=== PATIENT | female | born 1940 | race Caucasian/White ===

== ENCOUNTER 2018-08-30 09:20 | Inpatient (IN) | payer OTHER ==
[2018-08-27 13:46] LABS: Absolute Lymphocytes (CBC) 2.1 K/uL (0.7-4.9); Absolute Monocytes 0.4 K/uL (0.1-1.3); Absolute Neutrophil 4.1 K/uL (1.8-8.0); Basophils % 0.6 % (0-1.3); Eosinophils % 1.4 % (0-4.4); Hematocrit 42.8 % (36.0-45.0); Lymphocytes % 31.4 % (15.3-44.8); MPV 8.4 fL (7.6-11.3); Monocytes % 6.2 % (3.3-12.3); RBC Red Blood Cell Count 4.58 M/uL (3.86-4.86)
[2018-08-27 13:50] LABS: Urine Appearance CLOUDY; Urine Bilirubin NEGATIVE (NEG); Urine Blood NEGATIVE (NEG); Urine Color YELLOW; Urine Glucose NEGATIVE (NEG); Urine Protein NEGATIVE (NEG); Urine Specific Gravity 1.015 (1.005-1.030)
[2018-08-27 13:53] LABS: Urine Microscopic Reflex ORDER UMIC
[2018-08-27 13:59] LABS: Protime INR 0.92
[2018-08-27 14:01] LABS: Potassium 3.5 mmol/L (3.5-5.1)
[2018-08-27 14:07] LABS: Urine Bacteria <20 /HPF (<20); Urine RBC <5 /HPF (NONE SEEN)
[2018-08-27 14:08] LABS: Urine Amorphous Sediment 1+ /HPF (NONE SEEN); Urine Culture Reflex Order NOT NEEDED; Urine Mucus 2+ /HPF (NONE SEEN)
[2018-08-30] MEDS ORDERED: Ringers Lactate 1,000 ML IV ONE ×2 (09:44→14:43)
[2018-08-30] MEDS: CEFAZOLIN/SWI 2gm 2 GM/20 ML SYR ONE ×2 (10:14→11:51)
[2018-08-30] MEDS ORDERED: NA CHLORIDE 0.9% 100 ML IV ONE (11:19)
[2018-08-30] MEDS ORDERED: CEFAZOLIN/SWI 1gm 1 GM/10 ML SYR ONE (11:20)
[2018-08-30] MEDS ORDERED: VASOPRESSIN 20 UNIT/ML VIAL ONE (11:20)
[2018-08-30] MEDS ORDERED: FENTANYL CITR 100 MCG/2 ML ONE ×2 (11:47→14:47)
[2018-08-30] MEDS ORDERED: MIDAZOLAM HCL 2 MG/2 ML INJ ONE (11:48)
[2018-08-30] MEDS ORDERED: PROPOFOL 200 MG/20 ML VIAL IV ONE (11:48)
[2018-08-30] MEDS ORDERED: LIDOCAINE 2% MPF 5 ML VIAL ONE (11:48)
[2018-08-30] MEDS ORDERED: ONDANSETRON 4 MG/2 ML VIAL ONE (11:49)
[2018-08-30] MEDS ORDERED: ROCURONIUM 50 MG/5 ML VIAL IV ONE ×2 (11:50→13:04)
[2018-08-30] MEDS ORDERED: EPHEDRINE SULF 50 MG/10 ML SYR ONE ×2 (12:18→12:45)
[2018-08-30] MEDS ORDERED: DEXAMETHASONE 10 MG/ML VIAL ONE (12:48)
[2018-08-30] MEDS ORDERED: HOME MED 1 EA UNK (Meclizine Hcl [Meclizine Hcl] 25 MG) PO PRN (15:17)
[2018-08-30] MEDS ORDERED: HYDROMORPHONE HCL 1 MG/ML INJ IV PRN (15:19)
[2018-08-30] MEDS ORDERED: ACETAMINOPHEN 500 MG TAB PO PRN (15:19)
[2018-08-30] MEDS ORDERED: ONDANSETRON 4 MG/2 ML VIAL IV PRN (15:19)
--- NOTE | 2018-08-30 15:30 | P.BOP ---
Preoperative diagnosis: cystorectocele stage2, vault prolapse, MARIANNE Postoperative diagnosis: same, perineocele Primary procedure: colpocleisis, MUS TVT-O cystoscopy Secondary procedure: perineorrhaphy Mold Dumper: Larissa Garcias Estimated blood loss: 50 Specimen: none Findings: 0/0/+2/5/wide/6/-1/-1/n/a Anesthesia: General Complications: None Drain(s): Urinary catheter Implants: TVT-O Transferred to: Recovery Room Condition: Good
[2018-08-30] MEDS ORDERED: Ringers Lactate 1,000 ML IV SCH (16:00)
[2018-08-30 16:16] VITALS: O2SAT 96
[2018-08-30] MEDS ORDERED: MECLIZINE HCL 12.5 MG TAB PO PRN (16:35)
[2018-08-30 16:46] VITALS: BMI 17.6
[2018-08-30] MEDS: METOPROLOL TAR 25 MG TAB PO SCH (21:09)
[2018-08-31] MEDS ORDERED: AMLODIPINE 5 MG TAB PO SCH (06:00)
[2018-08-31 07:31] LABS: Absolute Lymphocytes (CBC) 0.8 K/uL (0.7-4.9); Absolute Monocytes 0.8 K/uL (0.1-1.3); Absolute Neutrophil 11.5 K/uL (1.8-8.0); Basophils % 0.1 % (0-1.3); Hematocrit 35.3 % (36.0-45.0); Lymphocytes % 6.3 % (15.3-44.8); MPV 8.2 fL (7.6-11.3); Monocytes % 5.7 % (3.3-12.3)
[2018-08-31] MEDS: METOPROLOL TAR 25 MG TAB PO SCH (08:20)
[2018-08-31] MEDS ORDERED: HOME MED 1 EA UNK (Budesonide/Formoterol Fumarate [Symbicort 160-4.5 Mcg Inhaler] 2 PUFF) IH SCH (09:00)
[2018-08-31 09:25] VITALS: BP 134/81; TEMP 98.3
[2018-08-31 09:55] LABS: Blood Morphology Comment NOT SEEN (NOT SEEN); Platelet Estimate ADEQ; Urine White Blood Cell Casts OK
--- NOTE | 2018-09-02 11:23 | OP ---
Date of Procedure: 08/30/2018 Surgeon: Maria A Castrejon MD Blocker Metal Base: Larissa Garcias. Preoperative Diagnoses: Vault prolapse; anterior wall prolapse, stage II; posterior wall prolapse, s tage II; occult stress urinary incontinence. Postoperative Diagnosis: Stage II vault prolapse, almost stage III; anterior and posterior wall prol apse that resolved, and stress urinary incontinence with a wide genital hiatus and a large perineal b josiane defect. Procedures Performed: 1.Colpocleisis. 2.Distal rectocele repair and perineorrhaphy. 3.Mid urethral sling (TVT-O). 4.Cystoscopy. Anesthesia: General. Estimated Blood Loss: Less than 50 mL. Specimens: None. Complications: None. Drains: None. Condition: Stable. Findings: POP-Q is as follows; anterior wall 0, +1, +2, 5 cm, moderate, 6 cm, -1, -1, and NA. The s ignificant vault prolapse on this patient, which seemed like the biggest defect besides the perineal body defect, so the above procedure was planned and performed. Brief History And Physical: The patient is a 78-year-old female who has had a total vaginal hysterec radha, bilateral salpingo-oophorectomy many years ago, and has just been doing well. She presented to me with prolapse, and she was fitted with a pessary, and she continued to use her pessary for a few years. However, at a certain point, she started to have problems with her pessary, and says the pess nimisha maintenance was becoming a huge hassle for this patient, and she did not want to continue to take care of this pessary, so she wanted a surgical repair. Initially, she was consented for transvagina l apical suspension with anterior wall repair using an Uphold synthetic graft. However, less than 36 hours prior to her surgery, there was a notification from FDA notifying that the transvaginal mesh p roduct including the xenograft and are completely nonusable, so with the patien t on the morning of the surgery, this mornign. Discussed this extensively. She already had been thr ough all the FDA warnings and information that is most current at the time of her appointment on Mond ay to see me and re-evaluate prior to making a decision, and then making the decision for surgery. T he patient was well informed about the synthetic graft placed vaginally. Discussed surgical options of abdominally placed sacral colpopexy mesh versus waiting and deciding later. The patient wanted to proceed with grindstone tissue repair or vaginal closure procedure, whichever was most convenient. She has not been sexually active in many years. After her second passed, she does not have any i ntention of being sexually active, and this was very clear by the patient's discussion. She clearly communicated with her daughter and [id number], both present in the room, and were part of the co nversation. I discussed the option of doing a grindstone tissue repair, re-suspending the apex, and then reconstructi ng the anterior and posterior wall. However, since the recurrence rate of this is much higher than a colpocleisis, I discussed the options of colpocleisis, which would be the only other option the judi ent would have for effective treatment transvaginally. The patient readily warmed-up to the idea and consented to this, and so she was consented for a colpocleisis possibly if at all perform ed. Description Of Procedure: After informed consent was verified, Ancef was given. The patient was sravani en back to OR. SCDs were started. General anesthesia was given. She was placed in dorsal lithotomy position using Javier stirrups. Pelvic exam was performed after shaving the outside. She had multip le blackheads and cleaned out as well. The lower abdomen, vulva, vagina, and perineum wer e prepped and draped in a sterile fashion. [place] was placed to drain the bladder. The bladder neck was identified. The vaginal vault was identified and 2 Allis clamps were placed at each end of the v aginal cuff. There was excellent descent of the vaginal apex and of the anterior and post erior wall on placing tension with 2 Allis clamps placed at the apex. It was very clear that the def ect was apical. Anterior wall was only 5 cm and appeared to be completely within normal limits. So at this point, a decision was made to perform a colpocleisis as the patient was consented for this at the bedside. She fully understood that this was permanent and irreversible, and wanted to proceed with this proced ure. Trapezoid skin markings were made on the anterior and posterior wall, leaving only about 2 cm of the distal vaginal wall and about 2 cm of the anterior vaginal wall from the external meatus to the level of the bladder neck. Dilute vasopressin was injected 20 cc in the back and 30 cc in the front. Fir st, the trapezoid incision was made with a 15 blade, and the skin was carefully removed without remov ing any significant amount of underlying tissues including the fascia and endopelvic connective tissu e. Once this was stripped, the anterior wall was also stripped with a 15 blade. Then, sutures were placed with 2-0 Vicryl transversely at the level of the apex getting the apex and the poe together in a continuous running locked fashion all the way in the transverse dimension and then on the right lateral aspect. Then, on the left lateral aspect another suture was taken, and continuous running im bricating suture was placed to finish this side. The anterior-posterior poe were brought together with the help of 3 rows of 2-0 Vicryl sutures from the anterior to posterior, and after all these wer e used for obliteration of the vaginal canal, then the lateral edges of the anterior and posterior ca nals were brought together and were sutured together in the midline in a vertical plane with the help of 2-0 Vicryl in a continuous running locked fashion. Once this was done, there was no excessive te nsion. The distal vaginal canal appeared to be puckered in appropriate axis. Then, perineorrhaphy w as done. The perineum was marked out. The defect in the perineal body and the attachments of the perineal bod y were identified. Dilute vasopressin was injected into the midline, into the perineum as well as in to the posterior distal vaginal wall. A triangular skin incision was made with 15 blade and removed excess skin of the posterior compartment, and once this was opened up, all the underlying tissues wer e dissected down, and the perineal body was dissected down as well. The edges were trimmed. The sup erficial and deep transverse perineum were brought together, and the lateral insertions of the levato rs into the perineal body were all brought together. I did put 2 stitches on the distal puborectalis muscle, pubococcygeal, and the levator muscle with 2-0 Vicryl right inside of the vestibule to hold the perineal body repair together and for a long time. Once these were done, the posterior midline w as closed with the help of a continuous running 2-0 Vicryl in a locked fashion. After the entire per ineal body was reconstructed, 3-0 Vicryl was used to close the perineum. Mid urethral area was identified. The patient was placed in a high dorsal lithotomy. All the markin gs for the exit points of the TVT-O were made according to the package instruction, 2 cm lateral to t he groin fold and 1 cm above the level of the horizontal line dropped to the level of the external me atus. This was below the adductor tendon on both sides. Once this was done, a mid urethral incision was made with a 15 blade. Dissection was carried along the 45-degree angle to the vertical planes. Hugging the inferior pubic ramus, natural gas inspector obturator membrane and opening up the tract. Similarly , dissection was performed on the left side as well. The TVT-O was opened up. Wing guide was placed and spike was passed in the usual fashion exited at the point that was marked. Similar pass was sravani en on the left side as well. Mesh was tensioned with the help of Metzenbaum scissors. The mid ureth ral area was tensioned appropriately. The mesh sheath were all cut, and mesh was left in place. Glue was placed on the incisions in the groins. The vagina was completely hemostatic. [place] was removed. Cystoscopy was performed. Both ureteric orifices were well visualized. Strong jets o f urine from both the bladder was completely unremarkable. The scope was removed. Bladder was drain ed. [place] was replaced. The patient was recovered from anesthesia. Instrument, needle, and sponge counts were done x3, and were correct at the end of the case. The patient was taken to the PACU in a stable condition. She will stay overnight and discharged tomorrow after checking the voiding trials . Follow up with me in 1 week. CHRIS/JESSICA Voice ID: [id number] Report ID: [id number]
== END 2018-08-31 09:00 | disposition home or self-care (01) | DRG 748 ==
LOC: OR 09:20 → 2ND-WC 16:27 → OR 20:23 → 2ND-WC 20:25
PROVIDERS: ADMIT Obstetrics & Gynecology; ATTEND Obstetrics & Gynecology
PROC: 0ULG7ZZ Occlusion of Vagina, Via Natural or Artificial Opening (ICD-10-PCS; 2018-08-30)
PROC: 0TSD0ZZ Reposition Urethra, Open Approach (ICD-10-PCS; 2018-08-30)
PROC: 0KQM0ZZ Repair Perineum Muscle, Open Approach (ICD-10-PCS; 2018-08-30)
PROC: 0TJB8ZZ Inspection of Bladder, Via Natural or Artificial Opening Endoscopic (ICD-10-PCS; 2018-08-30)
PROC: 0JQC0ZZ Repair Pelvic Region Subcutaneous Tissue and Fascia, Open Approach (ICD-10-PCS; principal; 2018-08-30 10:30)
DX: N99.3 Prolapse of vaginal vault after hysterectomy (principal); N81.6 Rectocele; N39.3 Stress incontinence (female) (male); N95.2 Postmenopausal atrophic vaginitis; J44.9 Chronic obstructive pulmonary disease, unspecified; M81.0 Age-related osteoporosis without current pathological fracture; F17.210 Nicotine dependence, cigarettes, uncomplicated; E78.5 Hyperlipidemia, unspecified; Z90.710 Acquired absence of both cervix and uterus; Z90.79 Acquired absence of other genital organ(s); Z90.722 Acquired absence of ovaries, bilateral
CPT/HCPCS: 36415; 80048; 81003; 81015; 85025; 85610; 85730; 86850; 86900; 86901; J0690; J1100; J2250; J2405; J2704; J3010

== ENCOUNTER 2019-06-11 02:25 | Inpatient (IN) | payer OTHER ==
[2019-06-11] MEDS ORDERED: ALBUTEROL 2.5 MG/3 ML NEB SOL ONE ×2 (02:47→09:45)
[2019-06-11 03:48] LABS: Absolute Lymphocytes (CBC) 1.4 K/uL (0.7-4.9); Basophils % 0.1 % (0-1.3); Hematocrit 35.2 % (36.0-45.0); Lymphocytes % 10.6 % (15.3-44.8); MPV 9.1 fL (7.6-11.3); RBC Red Blood Cell Count 3.81 M/uL (3.86-4.86)
[2019-06-11 03:52] LABS: Protime INR 1.04
[2019-06-11 04:02] LABS: ALT/SGPT 23 U/L (12-78); AST/SGOT 13 U/L (15-37); Albumin 3.4 g/dL (3.4-5.0); Alkaline Phosphatase 46 U/L (45-117); BUN Blood Urea Nitrogen 7 mg/dL (7-18); Bicarbonate 30 mmol/L (21-32); Bilirubin Direct 0.2 mg/dL (0-0.2); Bilirubin Total 0.9 mg/dL (0.2-1.0); CKMB Creatine Kinase MB < 1.0 ng/mL (0.3-3.6); Creatine Phosphokinase 52 U/L (26-192); Glucose Level 133 mg/dL (74-106); Lipase 68 U/L (73-393); Magnesium 1.9 mg/dL (1.8-2.4); NT PRO-BNP 533 pg/mL (<450); Potassium 3.7 mmol/L (3.5-5.1); Protein, Total 6.9 g/dL (6.4-8.2); Sodium Level 133 mmol/L (136-145); Troponin (Emerg Dept Use Only) < 0.02 ng/mL (0.0-0.045)
--- NOTE | 2019-06-11 04:11 | ER ---
Nurse's Notes [facility] Name: Keshia Madsen Age: 79 yrs Sex: Female : 1940 Arrival Date: 06/11/2019 Time: 02:33 Bed 8 Private MD: Diagnosis: Chronic obstructive pulmonary disease with (acute) exacerbation;Chronic obstructive pulmonary disease with acute lower respiratory infection Presentation: 06/11 02:26 Presenting complaint: EMS states: We were called out for shortness of breath. Pt was in jb4 tripod position upon arrival. sats were 91% on room air. We gave albuterol and atrovent neb, 125,g of Solu-medrol, and 250 of NS. She began having a productive cough once the nebulizer was started. 02:26 Transition of care: patient was not received from another setting of care. Onset of jb4 symptoms was June 11, 2019. Risk Assessment: Do you want to hurt yourself or someone else? Patient reports no desire to harm self or others. Initial Sepsis Screen: Does the patient meet any 2 criteria? RR > 20 per min. Yes Does the patient have a suspected source of infection? Yes: Productive cough/pneumonia. Care prior to arrival: Medication(s) given: Albuterol Neb x 1, Atrovent Neb x 1, Normal saline infusion, 250 Solu-Medrol 125mg. 02:26 Method Of Arrival: EMS: [facility] jb4 02:26 Acuity: [place] 3 jb4 Historical: - Allergies: 02:26 No Known Allergies; jb4 - Home Meds: 02:26 atorvastatin 20 mg Oral tab 1 tab once daily [Active]; alendronate 70 mg oral tab 1 tab jb4 once wkly [Active]; metoprolol tartrate 25 mg Oral tab 1 tab 2 times per day [Active]; Ventolin HFA 90 mcg/actuation Nebulizer HFAA [Active]; vitamin E 400 unit Oral cap [Active]; Fish Oil 1,000 mg oral cap [Active]; Potassium Chloride Oral [Active]; Premarin 0.625 mg/gram Vagl crea 3 times per week [Active]; amlodipine 5 mg tab 1 tab once daily [Active]; trelegy [Active]; - PMHx: 02:26 COPD; High Cholesterol; stapholococcal pneumonia; jb4 - PSHx: 02:26 Tonsillectomy; Appendectomy; Hysterectomy; Bladder suspension; jb4 - Immunization history:: Adult Immunizations up to date. - Coronavirus screen:: The patient has NOT traveled to [place], [place], or [place] in the past 14 days. Proceed with normal triage process as indicated. The patient has NOT had contact with known/suspected case of Coronavirus? Proceed with normal triage procedures. - Social history:: Smoking status: Patient denies any tobacco usage or history of. Patient/guardian denies using alcohol. - Ebola Screening: : Patient negative for fever greater than or equal to 101.5 degrees Fahrenheit, and additional compatible Ebola Virus Disease symptoms. Screenin:26 Abuse screen: Denies threats or abuse. Nutritional screening: No deficits noted. jb4 Tuberculosis screening: No symptoms or risk factors identified. Fall Risk None identified. Assessment: 02:40 General: Appears in no apparent distress. uncomfortable, Behavior is. Pain: Denies jb4 pain. Neuro: Level of Consciousness is awake, alert, obeys commands, Oriented to person, place, time, situation. Cardiovascular: Patient's skin is warm and dry. Respiratory: Reports cough that is productive, Airway is patent Respiratory effort is labored, shallow, Respiratory pattern is symmetrical, tachypnea Breath sounds are diminished bilaterally. GI: No signs and/or symptoms were reported involving the gastrointestinal system. : No signs and/or symptoms were reported regarding the genitourinary system. EENT: No signs and/or symptoms were reported regarding the EENT system. Derm: Skin is intact, Skin is pink, warm \T\ dry. Musculoskeletal: Circulation, motion, and sensation intact. Range of motion: intact in all extremities. 03:28 Reassessment: Patient appears in no apparent distress at this time. Patient and/or jb4 family updated on plan of care and expected duration. Pain level reassessed. Patient is alert, oriented x 3, equal unlabored respirations, skin warm/dry/pink. Patient states symptoms have improved. 04:11 Reassessment: Patient appears in no apparent distress at this time. Patient and/or jb4 family updated on plan of care and expected duration. Pain level reassessed. Patient is alert, oriented x 3, equal unlabored respirations, skin warm/dry/pink. Vital Signs: 02:26 BP 160 / 86; Pulse 81; Resp 24; Temp 97.4; Pulse Ox 91% on R/A; Weight 52.16 kg (R); jb4 Height 5 ft. 4 in. (162.56 cm) (R); Pain 0/10; 03:30 BP 113 / 92; Pulse 78; Resp 24; Pulse Ox 97% on 2 lpm NC; jb4 04:30 BP 118 / 64; Pulse 72; Resp 26; Pulse Ox 95% on 2 lpm NC; jb4 02:26 Body Mass Index 19.74 (52.16 kg, 162.56 cm) jb4 ED Course: 02:26 Arm band placed on right wrist. jb4 02:26 Patient has correct armband on for positive identification. Placed in gown. Bed in low jb4 position. Call light in reach. Side rails up X 1. monitoring and evaluation advisor on. Pulse ox on. NIBP on. 02:26 Maintain EMS IV. Dressing intact. Site clean \T\ dry. Gauge \T\ site: 20. zandra 4 02:33 Patient arrived in ED. jb4 02:34 Amilcar Morales MD is Attending Physician. tw4 02:36 Triage completed. jb4 03:00 XRAY CXR (1 view) In Process Unspecified. EDMS 03:02 Edgard Bertrand, RN is Primary Nurse. jb4 04:10 Trevon Hernandez MD is Hospitalizing Provider. tw4 04:30 No provider procedures requiring assistance completed. Patient admitted, IV remains in jb4 place. Administered Medications: 02:50 Drug: Albuterol 1.25 mg Route: Inhalation; jb4 06:28 Drug: Tylenol 500 mg Route: PO; jb4 Outcome: 04:10 Decision to Hospitalize by Provider. tw4 04:30 Admitted to ER Hold. Please see [facility] for further documentation. jb4 04:30 Condition: stable 04:30 Discharge instructions given to patient, Instructed on the need for admit, Demonstrated understanding of instructions. 14:58 Patient left the ED. aa5 Signatures: Dispatcher [employer] EDElder Cervantes RN RN em Calderon, Audri, RN RN aa5 Edgard Bertrand, BAUTISTA BAUM jb4 Amilcar Morales MD MD tw4 Corrections: (The following items were deleted from the chart) 03:35 02:26 Care prior to arrival: None. jb4 jb4 15:30 15:08 Patient left the ED. em aa5
--- NOTE | 2019-06-11 04:12 | EDPHYS ---
Physician Documentation [facility] Name: Keshia Madsen Age: 79 yrs Sex: Female : 1940 Arrival Date: 06/11/2019 Time: 02:33 Bed 8 Private MD: ED Physician Amilcar Morales HPI: 06/11 03:58 This 79 yrs old Female presents to ER via EMS with complaints of SOB. tw4 03:58 The patient has shortness of breath at rest. Onset: The symptoms/episode began/occurred tw4 today. Duration: The symptoms are continuous, and are steadily getting worse. The patient's shortness of breath has no apparent modifying factors. Associated signs and symptoms: The patient has no apparent associated signs or symptoms. The patient has not experienced similar symptoms in the past. Historical: - Allergies: 02:26 No Known Allergies; jb4 - Home Meds: 02:26 atorvastatin 20 mg Oral tab 1 tab once daily [Active]; alendronate 70 mg oral tab 1 tab jb4 once wkly [Active]; metoprolol tartrate 25 mg Oral tab 1 tab 2 times per day [Active]; Ventolin HFA 90 mcg/actuation Nebulizer HFAA [Active]; vitamin E 400 unit Oral cap [Active]; Fish Oil 1,000 mg oral cap [Active]; Potassium Chloride Oral [Active]; Premarin 0.625 mg/gram Vagl crea 3 times per week [Active]; amlodipine 5 mg tab 1 tab once daily [Active]; trelegy [Active]; - PMHx: 02:26 COPD; High Cholesterol; stapholococcal pneumonia; jb4 - PSHx: 02:26 Tonsillectomy; Appendectomy; Hysterectomy; Bladder suspension; jb4 - Immunization history:: Adult Immunizations up to date. - Coronavirus screen:: The patient has NOT traveled to [place], [place], or [place] in the past 14 days. Proceed with normal triage process as indicated. The patient has NOT had contact with known/suspected case of Coronavirus? Proceed with normal triage procedures. - Social history:: Smoking status: Patient denies any tobacco usage or history of. Patient/guardian denies using alcohol. - Ebola Screening: : Patient negative for fever greater than or equal to 101.5 degrees Fahrenheit, and additional compatible Ebola Virus Disease symptoms. ROS: 03:58 Constitutional: Negative for fever, chills, and weight loss, Eyes: Negative for injury, tw4 pain, redness, and discharge, ENT: Negative for injury, pain, and discharge, Cardiovascular: Negative for chest pain, palpitations, and edema, Abdomen/GI: Negative for abdominal pain, nausea, vomiting, diarrhea, and constipation, Back: Negative for injury and pain, MS/Extremity: Negative for injury and deformity, Skin: Negative for injury, rash, and discoloration. 03:58 Respiratory: Positive for shortness of breath, Negative for cough, dyspnea on exertion, orthopnea, pleurisy, sputum production, acute changes. Exam: 03:58 Head/Face: Normocephalic, atraumatic. Eyes: Pupils equal round and reactive to light, tw4 extra-ocular motions intact. Lids and lashes normal. Conjunctiva and sclera are non-icteric and not injected. Cornea within normal limits. Periorbital areas with no swelling, redness, or edema. Chest/axilla: Normal chest wall appearance and motion. Nontender with no deformity. No lesions are appreciated. Cardiovascular: Regular rate and rhythm with a normal S1 and S2. No gallops, murmurs, or rubs. Normal PMI, no JVD. No pulse deficits. Abdomen/GI: Soft, non-tender, with normal bowel sounds. No distension or tympany. No guarding or rebound. No evidence of tenderness throughout. Back: No spinal tenderness. No costovertebral tenderness. Full range of motion. Skin: Warm, dry with normal turgor. Normal color with no rashes, no lesions, and no evidence of cellulitis. MS/ Extremity: Pulses equal, no cyanosis. Neurovascular intact. Full, normal range of motion. Neuro: Awake and alert, GCS 15, oriented to person, place, time, and situation. Cranial nerves II-XII grossly intact. Motor strength 5/5 in all extremities. Sensory grossly intact. Cerebellar exam normal. Normal gait. 03:58 Constitutional: The patient appears in obvious distress, mildly distressed. 03:58 Respiratory: mild respiratory distress is noted, Respirations: labored breathing, Breath sounds: wheezing: is heard diffusely. Vital Signs: 02:26 BP 160 / 86; Pulse 81; Resp 24; Temp 97.4; Pulse Ox 91% on R/A; Weight 52.16 kg (R); jb4 Height 5 ft. 4 in. (162.56 cm) (R); Pain 0/10; 03:30 BP 113 / 92; Pulse 78; Resp 24; Pulse Ox 97% on 2 lpm NC; jb4 04:30 BP 118 / 64; Pulse 72; Resp 26; Pulse Ox 95% on 2 lpm NC; jb4 02:26 Body Mass Index 19.74 (52.16 kg, 162.56 cm) jb4 MDM: 02:34 Patient medically screened. tw4 04:11 Differential diagnosis: Anemia CHF exacerbation, Chronic Obstructive Pulmonary Disease tw4 Myocardial Infarction pneumonia, reactive airway disease. Antibiotic administration: Rocephin and Zithromax given. Data reviewed: vital signs, nurses notes. Data interpreted: Pulse oximetry: Interpretation: normal. 04:12 Data reviewed: lab test result(s), cardiac enzymes, CBC, electrolytes, hepatic panel, EKG, radiologic studies, plain films. 06/11 02:40 Order name: Blood Culture Adult (2) 06/11 02:40 Order name: BMP; Complete Time: 04:07 06/11 04:07 Interpretation: Normal except: NA 133; CL 97; GLUC 133. 06/11 02:40 Order name: CBC with Diff; Complete Time: 04:07 06/11 04:07 Interpretation: Normal except: WBC 13.2; RBC 3.81; HGB 11.7; HCT 35.2. 06/11 02:40 Order name: Ckmb; Complete Time: 04:07 06/11 04:08 Interpretation: Within normal limits: CKMB < 1.0. 06/11 02:40 Order name: CPK; Complete Time: 04:07 06/11 04:08 Interpretation: Within normal limits: CPK 52. 06/11 02:40 Order name: Hepatic Function; Complete Time: 04:07 06/11 04:07 Interpretation: Normal except: AST 13; A/G 1.0. 06/11 02:40 Order name: Lipase; Complete Time: 04:07 06/11 04:07 Interpretation: Within normal limits: LIP 68. 06/11 02:40 Order name: Magnesium; Complete Time: 04:07 06/11 04:08 Interpretation: Within normal limits: MG 1.9. 06/11 02:40 Order name: NT PRO-BNP; Complete Time: 04:07 06/11 04:07 Interpretation: Normal except: NT PRO-BNP 533. 06/11 02:40 Order name: PT-INR; Complete Time: 04:07 06/11 04:08 Interpretation: Within normal limits: PT 12.2. 06/11 02:40 Order name: Ptt, Activated; Complete Time: 04:07 06/11 04:08 Interpretation: Within normal limits: PTT 30.8. 06/11 02:40 Order name: Troponin (emerg Dept Use Only); Complete Time: 04:07 06/11 04:08 Interpretation: Within normal limits: TROPED < 0.02. 06/11 04:31 Order name: Basic Metabolic Panel [facility] 06/11 04:31 Order name: Basic Metabolic Panel [facility] 06/11 02:40 Order name: XRAY CXR (1 view) 06/11 02:40 Order name: EKG; Complete Time: 02:42 06/11 02:40 Order name: Cardiac monitoring; Complete Time: 03:02 06/11 02:40 Order name: EKG - Nurse/Tech; Complete Time: 03:03 06/11 04:31 Order name: NT PRO-BNP [facility] 06/11 04:31 Order name: NT PRO-BNP [facility] 06/11 04:31 Order name: Troponin I [facility] 06/11 04:31 Order name: Heart Healthy [facility] 06/11 04:31 Order name: Troponin I [facility] 06/11 04:31 Order name: Troponin I [facility] 06/11 08:51 Order name: Urine Microscopic Only [facility] 06/11 08:52 Order name: Urine Dipstick--Ancillary (enter results) [facility] 06/11 09:13 Order name: Urine Microscopic Only [facility] 06/11 14:46 Order name: Urine Dipstick-Ancillary [facility] 06/11 02:40 Order name: IV Saline Lock; Complete Time: 03:03 06/11 02:40 Order name: Labs collected and sent; Complete Time: 03:03 06/11 02:40 Order name: O2 Per Protocol; Complete Time: 03:03 06/11 02:40 Order name: O2 Sat Monitoring; Complete Time: 03:03 06/11 08:51 Order name: Urine Dipstick-Ancillary (obtain specimen); Complete Time: 08:51 aa5 EC:12 Rate is 73 beats/min. Rhythm is regular. QRS [place] is Normal. IA interval is normal. QRS tw4 interval is normal. QT interval is normal. No Q waves. T waves are Flattened in leads V2, V3. No ST changes noted. Clinical impression: NSR w/ Non-specific ST/T Changes. Interpreted by me. Reviewed by me. Administered Medications: 02:50 Drug: Albuterol 1.25 mg Route: Inhalation; jb4 06:28 Drug: Tylenol 500 mg Route: PO; jb4 Disposition: 06/11/19 04:10 Hospitalization ordered by Trevon Hernandez for Inpatient Admission. Preliminary diagnosis are Chronic obstructive pulmonary disease with (acute) exacerbation, Chronic obstructive pulmonary disease with acute lower respiratory infection. - Bed requested for Telemetry/MedSurg (Inpatient). - Status is Inpatient Admission. em - Condition is Stable. - Problem is new. - Symptoms have improved. UTI on Admission? No Signatures: Dispatcher [employer] Keshia Griffiths Edgar, RN RN Li Caballero RN BAUTISTA aa5 Padmini Gibbons RN RN cg Bryson, James, RN RN jb4 [place] RN RN ea Wadley, Terrence, MD MD tw4 Corrections: (The following items were deleted from the chart) 04:58 04:10 Hospitalization Ordered by Trevon Hernandez MD for Inpatient Admission. Preliminary cg diagnosis is Chronic obstructive pulmonary disease with (acute) exacerbation; Chronic obstructive pulmonary disease with acute lower respiratory infection. Bed requested for Telemetry/MedSurg (Inpatient). Status is Inpatient Admission. Condition is Stable. Problem is new. Symptoms have improved. UTI on Admission? No. tw4 13:07 04:58 06/11/2019 04:10 Hospitalization Ordered by Trevon Hernandez MD for Inpatient bd Admission. Preliminary diagnosis is Chronic obstructive pulmonary disease with (acute) exacerbation; Chronic obstructive pulmonary disease with acute lower respiratory infection. Bed requested for [facility] ER HOLD. Status is Inpatient Admission. Condition is Stable. Problem is new. Symptoms have improved. UTI on Admission? No. cg 15:08 13:07 06/11/2019 04:10 Hospitalization Ordered by Trevon Hernandez MD for Inpatient em Admission. Preliminary diagnosis is Chronic obstructive pulmonary disease with (acute) exacerbation; Chronic obstructive pulmonary disease with acute lower respiratory infection. Bed requested for Telemetry/MedSurg (Inpatient). Status is Inpatient Admission. Condition is Stable. Problem is new. Symptoms have improved. UTI on Admission? No. bd
[2019-06-11 05:07] VITALS: BMI 19.7
[2019-06-11] MEDS ORDERED: ACETAMINOPHEN 500 MG TAB ONE (06:28)
[2019-06-11] MEDS ORDERED: ASPIRIN 81 MG CHEWABLE TABLET ONE (08:07)
[2019-06-11] MEDS ORDERED: METHYLPREDNISOLONE 40 MG INJ ONE (08:08)
[2019-06-11] MEDS: ASPIRIN EC 81 MG TAB PO SCH (08:10)
[2019-06-11] MEDS: METHYLPREDNISOLONE 40 MG INJ IV SCH ×2 (08:10→16:22)
[2019-06-11] MEDS ORDERED: CEFTRIAXONE/SWI 1gm 1 GM/10 ML SYR ONE (08:37)
[2019-06-11] MEDS ORDERED: ENOXAPARIN 30 MG/0.3 ML SQ ONE (08:37)
[2019-06-11] MEDS: CEFTRIAXONE/SWI 1gm 1 GM/10 ML SYR IV SCH ×2 (08:45→20:23)
[2019-06-11] MEDS: AZITHROMYCIN IV 250 MG in NA CHLORIDE 0.9% 250 ML IVPB SCH (08:50)
[2019-06-11] MEDS: ENOXAPARIN 30 MG/0.3 ML SQ SCH (08:56)
--- NOTE | 2019-06-11 09:06 | RAD REPORT ---
EXAM DESCRIPTION: RAD - Chest Single View - 06/11/2019 3:01 am CLINICAL HISTORY: COPD;Cough;SOB Chest pain. COMPARISON: Chest Pa And Lat (2 Views) dated 05/31/2018; Chest Single View dated 08/16/2016; CHEST PA A ND LAT 2 VIEW dated 06/11/2012; ABDOMEN ACUTE SERIES dated 08/29/2009; Thorax Wo Con dated 07/13/2018 FINDINGS: Portable technique limits examination quality. Mild interstitial pulmonary edema is seen. Small pleural effusions. The heart is mildly prominent. Ao rtic atherosclerosis. IMPRESSION: Mild CHF.
[2019-06-11 09:12] LABS: Urine RBC <5 /HPF (NONE SEEN)
[2019-06-11 09:13] LABS: Urine Bacteria 20-50 /HPF (<20); Urine Culture Reflex Order REFLEXED
[2019-06-11] MEDS: IPRATROPIUM BROM 0.5MG/2.5ML NEB PRN (09:43)
[2019-06-11] MEDS: ALBUTEROL 2.5 MG/3 ML NEB SOL NEB PRN (09:43)
[2019-06-11] MEDS ORDERED: IPRATROPIUM BROM 0.5MG/2.5ML ONE (09:45)
[2019-06-11 14:45] LABS: Urine Blood 1+ (NEG); Urine Glucose NEGATIVE (NEG); Urine Protein 1+ (NEG); Urine Specific Gravity 1.025 (1.005-1.030); Urine pH 6.5 (5.0-7.0)
--- NOTE | 2019-06-11 15:56 | EKG ---
Test Date: 2019-06-11 Test Time: 02:54:43 Crisis Counselor: DILIP MEASUREMENT RESULTS: Intervals: Rate: 73 NV: 182 QRSD: 78 QT: 406 QTc: 447 [place]: P: 90 NV: 182 QRS: 61 T: 62 INTERPRETIVE STATEMENTS: Normal sinus rhythm Septal infarct, age undetermined Abnormal ECG Compared to ECG 11/12/2016 01:50:46 No significant changes Electronically Signed On 06-11-19 15:52:06 MERCHANDISE DELIVERER by [place]
[2019-06-12] MEDS: METHYLPREDNISOLONE 40 MG INJ IV SCH ×3 (01:04→16:23)
--- NOTE | 2019-06-12 02:17 | HP ---
Date of Admission: 06/11/2019 Chief Complaint: Cough, congestion, shortness of breath. History Of Present Illness: This is a 79-year-old pleasant female patient with severe COPD, who is o xygen dependent, came into emergency room with 2 to 3 days history of worsening complaints with cough , chest congestion, coughing up some yellow to greenish colored mucus, shortness of breath, and wheez ing. After patient was evaluated in the ER, she was admitted to the hospital with acute exacerbation of COPD. I saw her in the emergency room this morning. Allergies: NO KNOWN ALLERGIES. Medications: List reviewed. Review of Systems: Respiratory: As mentioned above. All other systems reviewed are negative. Past Medical History: Significant for allergic rhinitis, COPD, atypical mycobacterium infection of l taina, hypertension, hyperlipidemia, diverticulosis, osteoporosis, and hyponatremia. Past Surgical History: Tonsillectomy, appendectomy, hysterectomy, carpal tunnel surgery. Family History: Father , details unknown. Mother of stroke. Brother; Alzheimer disease, c oronary artery disease, myocardial infarction. Social History: Prior history of smoking not at present time. Use of alcohol, has 1 drink on a week ly basis. Physical Examination: VITAL SIGNS: Temperature 98.6, pulse 79, respiratory rate 18, blood pressure 122/78, oxygen saturati on 96%. Height 5 feet 4 inches, weight 115 pounds. General: Awake, alert, oriented, not in distress. HEENT: Head atraumatic, normocephalic. Conjunctivae nonerythematous. Sclerae white. Mouth, no thr ush or edema noted. Ears/Nose, no mass, lesion, discharge noted. Neck: Supple. No JVD, lymph nodes, bruit, thyromegaly noted. Lungs: Bilateral scattered wheezing, not in any respiratory distress. Heart: Normal heart sounds, no murmur or gallop. Abdomen: Soft, bowel sounds normal. No guarding, rigidity, tenderness, mass, hepatosplenomegaly, dis tention, or bruit noted. Extremities: No leg edema. No calf tenderness. Skin: No rash, ulcer, cellulitis. Lymphatics: No lymph node enlargement in neck, supraclavicular, infraclavicular region. Neuro: No focal neurological deficit. Chest: Unremarkable. External Genitalia: Deferred. Rectal: Deferred. Laboratory Data: White count 13.2, hemoglobin 11.7, platelets 191. Sodium 133, potassium 3.7, chlor sancho 97, bicarb 30, BUN 7, creatinine 0.55, glucose 133. Liver function tests unremarkable. Troponin less than 0.02. Chest x-ray, no acute cardiopulmonary changes. Impression: 1.Acute exacerbation of chronic obstructive pulmonary disease. 2.Hypertension. 3.Hyperlipidemia. 4.Osteoporosis. 5.Anemia, unspecified. 6.Diverticulosis. Plan: Admit patient to hospital for further evaluation and management of this problem. Patient is a ppropriate for inpatient and is expected to spend 2 midnights in hospital. Home medications will be continued per order. We will go ahead and give oxygen nebulizer treatment per order. IV steroids, I V antibiotics per order. DVT prophylaxis will be given per order. I will see her tomorrow for followup. Details and plan of treatment discussed w ith patient. YOSVANY/MODL Voice ID: [id number]
[2019-06-12 06:15] LABS: Absolute Lymphocytes (CBC) 0.6 K/uL (0.7-4.9); Basophils % 0.2 % (0-1.3); Lymphocytes % 4.5 % (15.3-44.8); MPV 8.9 fL (7.6-11.3); RBC Red Blood Cell Count 3.78 M/uL (3.86-4.86)
[2019-06-12 06:37] LABS: Potassium 4.1 mmol/L (3.5-5.1)
[2019-06-12 07:54] LABS: Urine White Blood Cell Casts OK
[2019-06-12 07:55] LABS: Blood Morphology Comment NOT SEEN (NOT SEEN); Platelet Estimate ADEQ
[2019-06-12] MEDS: AZITHROMYCIN IV 250 MG in NA CHLORIDE 0.9% 250 ML IVPB SCH (09:00)
[2019-06-12] MEDS: ENOXAPARIN 30 MG/0.3 ML SQ SCH (09:20)
[2019-06-12] MEDS: CEFTRIAXONE/SWI 1gm 1 GM/10 ML SYR IV SCH ×2 (09:20→20:01)
[2019-06-12] MEDS: ASPIRIN EC 81 MG TAB PO SCH (09:21)
[2019-06-13] MEDS: ALBUTEROL 2.5 MG/3 ML NEB SOL NEB PRN ×2 (00:05→21:00)
[2019-06-13] MEDS: IPRATROPIUM BROM 0.5MG/2.5ML NEB PRN ×2 (00:05→21:00)
[2019-06-13] MEDS: METHYLPREDNISOLONE 40 MG INJ IV SCH ×3 (01:06→17:11)
--- NOTE | 2019-06-13 01:42 | PN ---
Date of Progress Note: 06/12/2019 Subjective: Patient was seen this morning for followup. She was lying in bed, not in any distress. Overall feels better today than yesterday. Objective: Vital Signs: Reviewed. HEENT: Unremarkable. Lungs: Clear to auscultation except minimum wheezing noted in lower lung danielle, overall better toda y than yesterday. Heart: Sounds normal. Abdomen: Soft. Bowel sounds normal. No guarding, rigidity, tenderness, or distention. Extremities: No leg edema. Impression: 1.Acute exacerbation of chronic obstructive pulmonary disease. 2.Hypertension. Plan: We will continue current medications. Continue IV steroids, oxygen nebulizer, treatments, dolores roids, antibiotics, and I will see her tomorrow for followup. Possible discharge to go home tomorrow depending on her condition. YOSVANY/MODL Voice ID: [id number] Report ID: [id number]
--- NOTE | 2019-06-13 09:34 | RAD REPORT ---
EXAM DESCRIPTION: Sam De La Rosa And Lat (2 Views)06/13/2019 9:16 am CLINICAL HISTORY: Cough COMPARISON: May 31, 2018 FINDINGS: The lungs are markedly hyperaerated. Lungs appear clear of acute infiltrate. The heart is normal size IMPRESSION: Marked COPD without visualization acute abnormality
[2019-06-13] MEDS: ENOXAPARIN 30 MG/0.3 ML SQ SCH (09:51)
[2019-06-13] MEDS: ASPIRIN EC 81 MG TAB PO SCH (09:51)
[2019-06-13] MEDS: CEFTRIAXONE/SWI 1gm 1 GM/10 ML SYR IV SCH ×2 (09:51→20:47)
[2019-06-13] MEDS: AZITHROMYCIN IV 250 MG in NA CHLORIDE 0.9% 250 ML IVPB SCH (09:52)
--- NOTE | 2019-06-13 23:34 | PN ---
Date of Progress Note: 06/13/2019 Subjective: Patient was seen this morning for followup. No new complaints or problems reported by rosa m oates. She was lying in bed, not in distress. Objective: Vital Signs: Reviewed. HEENT: Unremarkable. Lungs: Bilateral good equal air entry, not in respiratory distress. No wheezing. No crackles. Heart: Heart sounds normal. Abdomen: Soft, bowel sounds normal. No guarding, rigidity, tenderness, or distention. Extremities: No leg edema. Impression: 1.Acute exacerbation of chronic obstructive pulmonary disease. 2.Acute bronchitis. 3.Hypertension. Plan: Patient still has cough, chest congestion, and coughing up some colored mucus, but it is impro ving on a day-to-day basis. She still has shortness of breath with ambulation, but that is improving as well. We will continue current antibiotics, nebulizer treatment, oxygen, and steroid. Repeat est x-ray today. Possible discharge to go home tomorrow. YOSVANY/MODL Voice ID: [id number] Report ID: [id number]
[2019-06-14] MEDS: METHYLPREDNISOLONE 40 MG INJ IV SCH (00:48)
[2019-06-14] MEDS: ASPIRIN EC 81 MG TAB PO SCH (07:38)
[2019-06-14] MEDS: CEFTRIAXONE/SWI 1gm 1 GM/10 ML SYR IV SCH (07:38)
[2019-06-14] MEDS: ENOXAPARIN 30 MG/0.3 ML SQ SCH (07:38)
[2019-06-14] MEDS ORDERED: predniSONE 20 MG TAB PO SCH (08:00)
[2019-06-14] MEDS: AZITHROMYCIN IV 250 MG in NA CHLORIDE 0.9% 250 ML IVPB SCH (09:03)
[2019-06-14 09:16] VITALS: O2SAT 94
[2019-06-14 09:20] VITALS: BP 153/86; TEMP 97.3
--- NOTE | 2019-06-15 04:55 | DS ---
Date of Discharge: 06/14/2019 Disposition: Discharged to go home. Physical Examination: HEENT: Unremarkable. Lungs: Clear to auscultation. Heart: Sounds normal. Abdomen: Soft. Bowel sounds normal. No guarding, rigidity, tenderness, distention. Extremities: No leg edema. Laboratory Data: Upon admission, white count 13.2, hemoglobin 11.7, platelets 191. Day after admiss ion, repeat white count 13.6, hemoglobin 11.5, platelets 204. Admission sodium 133, potassium 3.7, c hloride 97, bicarb 30, BUN 7, creatinine 0.55, glucose 133. Liver function test unremarkable. Tropo diana less than 0.02 x3. Hospital Course: This is a 79-year-old pleasant female patient admitted to the hospital after she pr esented to the emergency room with complaints of cough, congestion, shortness of breath. Please see dictated H and P for more information. Patient was also coughing up some yellowish to greenish-color ed mucus along with other symptoms as mentioned above. After she came into the ER, she was admitted to the hospital with acute exacerbation of COPD. She was admitted to the hospital. Oxygen nebulizer treatment, IV steroid, and IV antibiotic started. Home medications were continued. Physical Therap y was consulted to help ambulate the patient. As patient's condition improved, she started ambulatin g well. Repeat chest x-ray yesterday was still negative for any pneumonia. Overall, her condition h as improved. Her shortness of breath has improved. She is ambulating well, has good appetite, and h er mucus that she coughs up is clear now. Patient is being discharged to go home in stable condition today. She is on continuous home oxygen. Final Diagnoses: 1.Acute exacerbation of chronic obstructive pulmonary disease. 2.Hypertension. 3.Hyperlipidemia. 4.Osteoporosis. 5.Anemia, unspecified. 6.Diverticulosis. Discharge Medications And Instructions: 1.Continue all prior home medications. 2.Take prednisone as prescribed, which is 10 mg tablet. Patient to take 2 tablets daily for 4 days, then 1 tablet daily for 4 days, then 1/2 tablet daily for 4 days, then stop. 3.Cefuroxime 250 mg. Patient to take 1 tablet 2 times a day for 1 week. 4.Follow up at my office either on 06/19/2019 or 06/20/2019 and patient to call office for appointme nt. YOSVANY/JESSICA Voice ID: [id number] Report ID: [id number]
== END 2019-06-14 10:43 | disposition home or self-care (01) | DRG 192 ==
LOC: ER 02:25 → ERHOLD 04:31 → 2ND 14:36
PROVIDERS: ADMIT Internal Medicine; ATTEND Internal Medicine
DX: J44.1 Chronic obstructive pulmonary disease with (acute) exacerbation (principal); J20.9 Acute bronchitis, unspecified; J44.0 Chronic obstructive pulmonary disease with (acute) lower respiratory infection; I10 Essential (primary) hypertension; E78.5 Hyperlipidemia, unspecified; D64.9 Anemia, unspecified; K57.90 Diverticulosis of intestine, part unspecified, without perforation or abscess without bleeding; M81.0 Age-related osteoporosis without current pathological fracture
CPT/HCPCS: 36415; 71045; 71046; 80048; 80076; 81003; 81015; 82550; 82553; 83690; 83735; 83880; 84484; 85025; 85610; 85730; 87040; 87086; 87088; 93005; 94640; 94760; 97116; 97161; 97530; 99285; J0456; J0696; J1650; J2920; J7030; J7512

== ENCOUNTER 2019-08-21 12:38 | Inpatient (IN) | payer OTHER ==
--- OUTSIDE RECORDS SUMMARY | 2019-08-21 12:40 | XMS REPORT ---
:1940 Author Organization [facility] t Address [address] [place] [address] Dr. Duncan [address] [place] [id number] Care Team Providers Name Role Phone Unavailable Unavailable Unavailable Payers Payer Name Policy Type Policy Number Effective Date Expiration D ate Problems This patient has no known problems. Allergies, Adverse Reactions, Alerts This patient has no known allergies or adverse reactions. Medications This patient has no known medications.
[2019-08-21] MEDS ORDERED: IPRATROPIUM BROM 0.5MG/2.5ML ONE (13:25)
[2019-08-21] MEDS ORDERED: ALBUTEROL 2.5 MG/3 ML NEB SOL ONE (13:26)
[2019-08-21 13:55] LABS: Absolute Lymphocytes (CBC) 1.4 K/uL (0.7-4.9); Basophils % 0.3 % (0-1.3); Hematocrit 39.6 % (36.0-45.0); Lymphocytes % 9.7 % (15.3-44.8); MPV 8.6 fL (7.6-11.3); RBC Red Blood Cell Count 4.26 M/uL (3.86-4.86)
[2019-08-21 14:01] LABS: Protime INR 0.94
--- NOTE | 2019-08-21 14:05 | RAD REPORT ---
EXAM DESCRIPTION: RAD - Chest Single View - 08/21/2019 1:42 pm CLINICAL HISTORY: SOB COMPARISON: Two-view chest June 13 ; Two view chest May 2018, portable August 2016, two view c hest May 2012 TECHNIQUE: AP portable chest image was obtained 08/21/2019 1:42 pm . FINDINGS: Lung danielle are hyperexpanded in fibrotic. Diaphragm is flattened. Chronic fibrotic patter n is not substantially different from the comparison study. Severity of disease could mask early infi ltrate. Small nodular focus in the left upper lung field at the aortic arch level has been present ba ck to at least 2017 and may be earlier. Heart and vasculature are normal. No measurable pleural effus ion and no pneumothorax. No acute bony abnormality seen. No acute aortic findings suspected. IMPRESSION: Prominent COPD pattern with no acute cardiopulmonary finding seen. Baseline fibrotic lung pattern is severe enough to possibly mask early edema or infiltrate.
[2019-08-21 14:18] LABS: ALT/SGPT 22 U/L (12-78); AST/SGOT 16 U/L (15-37); Albumin 3.9 g/dL (3.4-5.0); Alkaline Phosphatase 53 U/L (45-117); BUN Blood Urea Nitrogen 18 mg/dL (7-18); Bicarbonate 33 mmol/L (21-32); Bilirubin Direct 0.1 mg/dL (0-0.2); Bilirubin Total 0.3 mg/dL (0.2-1.0); Glucose Level 174 mg/dL (74-106); Magnesium 2.4 mg/dL (1.8-2.4); NT PRO-BNP 179 pg/mL (<450); Potassium 4.1 mmol/L (3.5-5.1); Protein, Total 7.5 g/dL (6.4-8.2); Sodium Level 137 mmol/L (136-145); Troponin (Emerg Dept Use Only) < 0.02 ng/mL (0.0-0.045)
--- NOTE | 2019-08-21 14:27 | EDPHYS ---
Physician Documentation [facility] Name: Keshia Madsen Age: 79 yrs Sex: Female : 1940 Arrival Date: 08/21/2019 Time: 12:43 Bed 30 Private MD: ED Physician Jake Yu HPI: 08/20 12:51 This 79 yrs old Female presents to ER via Unassigned with complaints of cp Shortness of Breath. Historical: - Allergies: 12:58 No Known Allergies; iw - Home Meds: 12:57 alendronate 70 mg Oral tab 1 tab once wkly [Active]; amlodipine 5 mg tab 1 tab once iw daily [Active]; atorvastatin 20 mg Oral tab 1 tab once daily [Active]; Fish Oil 1,000 mg Oral cap [Active]; metoprolol tartrate 25 mg Oral tab 1 tab 2 times per day [Active]; Potassium Chloride Oral [Active]; Premarin 0.625 mg/gram Vagl crea 3 times per week [Active]; Ventolin HFA 90 mcg/actuation Nebulizer HFAA [Active]; vitamin E 400 unit Oral cap [Active]; trelegy [Active]; - PMHx: 12:57 COPD; High Cholesterol; stapholococcal pneumonia; iw - PSHx: 12:57 Tonsillectomy; Appendectomy; Hysterectomy; Bladder suspension; iw - Immunization history:: Adult Immunizations up to date, Pneumococcal vaccine is up to date, Flu vaccine is up to date. - Social history:: Smoking status: Patient reports the use of cigarette tobacco products, smokes one-half pack cigarettes per day. Exam: 13:15 ECG was reviewed by the Attending Physician. cp Vital Signs: 12:45 BP 151 / 94; Pulse 96; Resp 26; Temp 97.4; Pulse Ox 100% ; Weight 45.36 kg; Height 5 ah ft. 4 in. (162.56 cm); Pain 0/10; 12:52 BP 151 / 94; Pulse 96; Resp 22 S; Pulse Ox 100% on CPAP; iw 13:15 BP 136 / 92; Pulse Ox 100% ; ah 13:30 BP 140 / 98; Pulse 94; Resp 21; Pulse Ox 100% ; ah 14:05 BP 131 / 79; Pulse 87; Resp 22; Pulse Ox 100% ; ah 14:30 BP 124 / 69; Pulse 87; Resp 21; Pulse Ox 99% ; ah 15:14 BP 111 / 73; Pulse 85; Resp 19; Pulse Ox 100% ; ah 15:34 BP 108 / 77; Pulse 82; Resp 17; Pulse Ox 100% ; ah 16:00 BP 103 / 71; Pulse 78; Resp 21; Pulse Ox 100% ; ah 16:25 BP 97 / 72; Pulse 78; Resp 24; Pulse Ox 99% ; ah 12:45 Body Mass Index 17.16 (45.36 kg, 162.56 cm) ah 12:45 pt on bi pap ah 13:30 bipap ah 14:05 pt on bipap ah 14:30 bipap ah 15:14 bipap ah 15:34 bipap ah 16:00 bipap ah 16:25 bipap ah MDM: 12:51 Patient medically screened. cp 15:00 Physician consultation: Jose Kitchen MD was called at 15:00, left message on voicemail. 15:28 Physician consultation: Jose Kitchen MD was called at 15:29, will call back to discuss cp patient. 08/20 12:49 Order name: Basic Metabolic Panel; Complete Time: 15:51 cp 08/20 15:51 Interpretation: Normal except: CL 97; CO2 33; GLUC 174; GFR 82. cp 08/20 12:49 Order name: CBC with Diff; Complete Time: 14:04 cp 08/20 14:04 Interpretation: Normal except: WBC 14.4; PACO% 86.1; LYM% 9.7; NEUT A 12.4. cp 08/20 12:49 Order name: LFT's; Complete Time: 15:51 cp 08/20 15:52 Interpretation: Normal except: GLOB 3.6. cp 08/20 12:49 Order name: Magnesium; Complete Time: 15:51 cp 08/20 15:52 Interpretation: MG 2.4; Reviewed. cp 08/20 12:49 Order name: NT PRO-BNP; Complete Time: 15:51 cp 08/20 12:49 Order name: PT-INR; Complete Time: 15:51 cp 08/20 12:49 Order name: Troponin (emerg Dept Use Only); Complete Time: 15:51 cp 08/20 15:52 Interpretation: Within normal limits: TROPED < 0.02. cp 08/20 12:49 Order name: Influenza Screen (a \T\ B); Complete Time: 15:51 cp 08/20 15:52 Interpretation: Reviewed. cp 08/20 12:49 Order name: COVID-19 cp 08/20 12:49 Order name: Blood Culture Adult (2) cp 08/20 12:49 Order name: Procalcitonin; Complete Time: 15:51 cp 08/20 12:49 Order name: Lactate; Complete Time: 14:23 cp 08/20 17:13 Order name: Basic Metabolic Panel EDMS 08/20 17:13 Order name: Basic Metabolic Panel EDMS 08/20 12:49 Order name: XRAY Chest (1 view); Complete Time: 14:23 cp 08/20 12:49 Order name: EKG; Complete Time: 12:51 cp 08/20 12:49 Order name: Cardiac monitoring; Complete Time: 15:44 cp 08/20 12:49 Order name: EKG - Nurse/Tech; Complete Time: 15:44 cp 08/20 12:49 Order name: BIPAP cp 08/20 17:13 Order name: Regular EDMS 08/20 17:13 Order name: CBC with Automated Diff EDMS 08/20 17:13 Order name: CBC with Automated Diff EDMS 08/20 17:13 Order name: NT PRO-BNP EDMS 08/20 17:13 Order name: NT PRO-BNP EDMS 08/20 17:13 Order name: Troponin I EDIL 08/20 17:13 Order name: Troponin I EDIL 08/20 17:13 Order name: Troponin I EDIL 08/20 12:49 Order name: IV Saline Lock; Complete Time: 15:44 cp 08/20 12:49 Order name: Labs collected and sent; Complete Time: 15:44 cp 08/20 12:49 Order name: O2 Per Protocol; Complete Time: 15:45 cp 08/20 12:49 Order name: O2 Sat Monitoring; Complete Time: 15:46 cp EC:15 Rate is 96 beats/min. Rhythm is regular. MA interval is normal. QRS interval is cp prolonged at 124 msec. QT interval is normal. T waves are Inverted in leads V2, V3. Interpreted by me. Reviewed by me. Administered Medications: 14:26 Drug: AtroVENT Aerosol 0.5 mg Route: Inhalation; 14:26 Drug: Albuterol 2.5 mg Route: Inhalation; ah 14:39 Drug: LevaQUIN 750 mg Volume: 150 ml; Route: IVPB; Infused Over: 90 mins; Site: left ah forearm; 16:17 Follow up: Response: No adverse reaction; IV Status: Completed infusion; IV Intake: ah 150ml Disposition: 08/21/19 16:27 Hospitalization ordered by Jose Kitchen for Inpatient Admission. Preliminary diagnosis is Chronic obstructive pulmonary disease with (acute) exacerbation. - Bed requested for Telemetry/MedSurg (Inpatient). - Status is Inpatient Admission. iw - Condition is Stable. - Problem is new. - Symptoms have improved. Signatures: Dispatcher [employer] EDMS Samantha Hankins RN RN Lenora Astudillo RN RN Jake Dunlap PA PA cp Harris, Amy, RN RN Corrections: (The following items were deleted from the chart) 14:27 14:26 Hospitalization Ordered by Cachorro Cheng for Inpatient Admission. Preliminary cp diagnosis is Acute and chronic respiratory failure. Bed requested for Telemetry/MedSurg (Inpatient). Status is Inpatient Admission. Condition is Serious. Problem is new. Symptoms have improved. cp 14:51 14:27 08/21/2019 14:26 Hospitalization Ordered by Cachorro Cheng for Inpatient cp Admission. Preliminary diagnosis is Chronic obstructive pulmonary disease with (acute) exacerbation. Bed requested for Telemetry/MedSurg (Inpatient). Status is Inpatient Admission. Condition is Serious. Problem is new. Symptoms have improved. cp 17:35 16:27 Hospitalization Ordered by Jose Kitchen MD for Inpatient Admission. Preliminary dw diagnosis is Chronic obstructive pulmonary disease with (acute) exacerbation. Bed requested for Telemetry/MedSurg (Inpatient). Status is Inpatient Admission. Condition is Stable. Problem is new. Symptoms have improved. cp 18:31 17:35 08/21/2019 16:27 Hospitalization Ordered by Jose Kitchen MD for Inpatient iw Admission. Preliminary diagnosis is Chronic obstructive pulmonary disease with (acute) exacerbation. Bed requested for Telemetry/MedSurg (Inpatient). Status is Inpatient Admission. Condition is Stable. Problem is new. Symptoms have improved. dw
--- NOTE | 2019-08-21 14:27 | ER ---
Nurse's Notes [facility] Name: Keshia Madsen Age: 79 yrs Sex: Female : 1940 Arrival Date: 08/21/2019 Time: 12:43 Bed 30 Private MD: Diagnosis: Chronic obstructive pulmonary disease with (acute) exacerbation Presentation: 08/20 12:45 Chief complaint: EMS states: pt reports SOB X 2-3 days, no fever, no cough, hx of COPD, iw was 94% on 4 L NC , tachypneic, can only speak in 2-3 word sentences. Coronavirus screen: Surgical mask placed on patient. Patient moved to private room, placed in contact and droplet isolation with eye protection until further assessment. Patient reports shortness of breath or difficulty breathing. Patient denies measured and/or subjective temperature greater than 100.4F prior to today's visit. Patient denies travel on a cruise ship or to a country the [facility] currently lists as an affected area. Patient denies contact with known and/or suspected case of COVID-19. Ebola Screen: Patient negative for fever greater than or equal to 101.5 degrees Fahrenheit, and additional compatible Ebola Virus Disease symptoms Patient denies exposure to infectious person. Patient denies travel to an Ebola-affected area in the 21 days before illness onset. No symptoms or risks identified at this time. 12:45 Method Of Arrival: EMS: [facility] iw 12:45 Acuity: STERLING 2 iw 12:45 Risk Assessment: Do you want to hurt yourself or someone else? Patient reports no ah desire to harm self or others. Onset of symptoms is unknown. Care prior to arrival: Medication(s) given: Albuterol Neb x 3, Normal saline infusion, 500 mL, solumedrol 125 and magnesium 2g IV initiated. 18 GA, in the right antecubital area, pt on cpap. 15:37 Initial Sepsis Screen: Does the patient meet any 2 criteria? No. Patient's initial sepsis screen is negative. Does the patient have a suspected source of infection? No. Patient's initial sepsis screen is negative. Historical: - Allergies: 12:58 No Known Allergies; iw - Home Meds: 12:57 alendronate 70 mg Oral tab 1 tab once wkly [Active]; amlodipine 5 mg tab 1 tab once iw daily [Active]; atorvastatin 20 mg Oral tab 1 tab once daily [Active]; Fish Oil 1,000 mg Oral cap [Active]; metoprolol tartrate 25 mg Oral tab 1 tab 2 times per day [Active]; Potassium Chloride Oral [Active]; Premarin 0.625 mg/gram Vagl crea 3 times per week [Active]; Ventolin HFA 90 mcg/actuation Nebulizer HFAA [Active]; vitamin E 400 unit Oral cap [Active]; trelegy [Active]; - PMHx: 12:57 COPD; High Cholesterol; stapholococcal pneumonia; iw - PSHx: 12:57 Tonsillectomy; Appendectomy; Hysterectomy; Bladder suspension; iw - Immunization history:: Adult Immunizations up to date, Pneumococcal vaccine is up to date, Flu vaccine is up to date. - Social history:: Smoking status: Patient reports the use of cigarette tobacco products, smokes one-half pack cigarettes per day. Screenin:35 Abuse screen: Denies threats or abuse. Nutritional screening: No deficits noted. Tuberculosis screening: No symptoms or risk factors identified. Fall Risk None identified. Assessment: 12:55 Reassessment: Respiratory in room switching pt to bi pap. pt tolerating well. 13:00 General: Appears distressed, Behavior is cooperative, restless. Pain: Denies pain. Neuro: Level of Consciousness is awake, alert, obeys commands, Oriented to person, place, time, situation, Artificial Pearl Maker are equal bilaterally. Cardiovascular: Denies chest pain, Heart tones S1 S2 Capillary refill < 3 seconds Patient's skin is warm and dry. Rhythm is sinus rhythm. Respiratory: Reports shortness of breath at rest Airway is patent Respiratory effort is labored, with retractions, Respiratory pattern is tachypnea Breath sounds are diminished Onset: The symptoms/episode began/occurred 2-3 days, the patient has severe shortness of breath Denies cough. GI: No signs and/or symptoms were reported involving the gastrointestinal system. Abdomen is non-distended, Bowel sounds Abd is non tender. : No signs and/or symptoms were reported regarding the genitourinary system. EENT: No signs and/or symptoms were reported regarding the EENT system. Derm: No signs and/or symptoms reported regarding the dermatologic system. Skin Skin is dry, Skin is. Derm: Skin is intact. 14:00 Reassessment: iv started and blood cultures drawn at this time. pt tolerated well. nurse at bedside. 15:00 Reassessment: Patient and/or family updated on plan of care and expected duration. Pain ah level reassessed. Daughter updated at this time. pt is tolerating bi pap and maintaining o2 sats at this time. 15:58 Reassessment: pt resting at this time. Continues to tolerate bipap well. o2 sat \T\ 100. nurse remains at bedside. no needs voiced at this time. 16:04 Reassessment: P[facility] # received from [facility] ([id number] [phone]), called to [place] in lab. iw 16:14 Reassessment: levaquin completed. iv flushed and hl at this time. provided addition blanket for pt. All needs met at this time. Awaiting for room assignment. Vital Signs: 12:45 BP 151 / 94; Pulse 96; Resp 26; Temp 97.4; Pulse Ox 100% ; Weight 45.36 kg; Height 5 ah ft. 4 in. (162.56 cm); Pain 0/10; 12:52 BP 151 / 94; Pulse 96; Resp 22 S; Pulse Ox 100% on CPAP; iw 13:15 BP 136 / 92; Pulse Ox 100% ; ah 13:30 BP 140 / 98; Pulse 94; Resp 21; Pulse Ox 100% ; ah 14:05 BP 131 / 79; Pulse 87; Resp 22; Pulse Ox 100% ; ah 14:30 BP 124 / 69; Pulse 87; Resp 21; Pulse Ox 99% ; ah 15:14 BP 111 / 73; Pulse 85; Resp 19; Pulse Ox 100% ; ah 15:34 BP 108 / 77; Pulse 82; Resp 17; Pulse Ox 100% ; ah 16:00 BP 103 / 71; Pulse 78; Resp 21; Pulse Ox 100% ; ah 16:25 BP 97 / 72; Pulse 78; Resp 24; Pulse Ox 99% ; ah 12:45 Body Mass Index 17.16 (45.36 kg, 162.56 cm) ah 12:45 pt on bi pap ah 13:30 bipap ah 14:05 pt on bipap ah 14:30 bipap ah 15:14 bipap ah 15:34 bipap ah 16:00 bipap ah 16:25 bipap ah ED Course: 12:43 Patient arrived in ED. bd 12:47 Jake Dunlap PA is PHCP. cp 12:47 Jake Yu MD is Attending Physician. cp 12:56 Triage completed. iw 12:58 Arm band placed on. iw 13:17 Kassidy Combs, RN is Primary Nurse. ah 13:42 XRAY Chest (1 view) In Process Unspecified. EDMS 14:00 Inserted saline lock: 20 gauge in left forearm, using aseptic technique. 14:25 Cachorro Cheng is Hospitalizing Provider. cp 15:17 Patient has correct armband on for positive identification. Placed in gown. Bed in low ah position. Call light in reach. Side rails up X2. monitoring manager on. Pulse ox on. NIBP on. 16:02 Awaiting bed assignment. 16:22 Jose Kitchen MD is Hospitalizing Provider. cp 18:29 No provider procedures requiring assistance completed. Patient admitted, IV remains in iw place. Administered Medications: 14:26 Drug: AtroVENT Aerosol 0.5 mg Route: Inhalation; 14:26 Drug: Albuterol 2.5 mg Route: Inhalation; 14:39 Drug: LevaQUIN 750 mg Volume: 150 ml; Route: IVPB; Infused Over: 90 mins; Site: left ah forearm; 16:17 Follow up: Response: No adverse reaction; IV Status: Completed infusion; IV Intake: ah 150ml Intake: 16:17 IV: 150ml; Total: 150ml. Outcome: 14:26 Decision to Hospitalize by Provider. cp 16:27 Decision to Hospitalize by Provider. cp 18:29 Admitted to Med/surg accompanied by tech, via wheelchair, room 415, with oxygen, with iw chart, Report called to BAUTISTA Lockwood 18:30 Condition: good iw 18:30 Instructed on the need for admit. 18:31 Patient left the ED. iw Signatures: Dispatcher [employer] EDMS Keshia Melara Irene RN RN Jake Dunlap PA PA cp Kassidy Combs, RN RN
[2019-08-21] MEDS ORDERED: Levofloxacin 750mg IV 750 MG/150 ML BAG IV ONE (14:39)
--- NOTE | 2019-08-21 15:50 | EKG ---
Test Date: 2019-08-21 Test Time: 13:07:44 Capping Machine Operator: JOSEY MEASUREMENT RESULTS: Intervals: Rate: 96 PA: 180 QRSD: 124 QT: 420 QTc: 530 [place]: P: 89 PA: 180 QRS: 105 T: 62 INTERPRETIVE STATEMENTS: Normal sinus rhythm Right bundle branch block Septal infarct, age undetermined Abnormal ECG Compared to ECG 06/11/2019 02:54:43 Right bundle-branch block now present Myocardial infarct finding still present Electronically Signed On 08-21-19 15:49:34 CDT by El Toscano
[2019-08-21] MEDS ORDERED: ONDANSETRON 4 MG/2 ML VIAL IV PRN (17:07)
[2019-08-21] MEDS ORDERED: ACETAMINOPHEN 500 MG TAB PO PRN (17:07)
[2019-08-21] MEDS: METHYLPREDNISOLONE 125 MG INJ IV SCH (18:38)
[2019-08-21] MEDS: ALBUTEROL 2.5 MG/3 ML NEB SOL NEB SCH ×2 (20:00→23:42)
[2019-08-21] MEDS: IPRATROPIUM BROM 0.5MG/2.5ML NEB SCH ×2 (20:00→23:41)
[2019-08-21 20:31] LABS: Blood Morphology Comment NOT SEEN (NOT SEEN); Platelet Estimate ADEQ; Urine White Blood Cell Casts OK
--- NOTE | 2019-08-21 22:54 | HP ---
Date of Admission: 08/21/2019 Chief Complaint: Shortness of breath. History Of Present Illness: This is a 79-year-old female patient who has severe COPD came into emerg ency room with a couple of days history of worsening shortness of breath problem. She has some cough and occasional expectoration of mucus. No fever. No chills. No recent travel. No exposure to COV ID19 patients. Family called office today and was advised to have the patient come to the emergency room. After she was evaluated in the ER, she was admitted to the hospital. Patient did require some BiPAP support in the emergency room. When I saw her in the emergency room, she was feeling better c ompared to earlier today. Denies any vomiting or diarrhea. Allergies: NO KNOWN ALLERGIES. Medications: List reviewed. Review of Systems: Respiratory: As mentioned above. All other systems reviewed and negative. Social History: Prior history of smoking, not at present time. Use of alcohol about 1 drink weekly basis. Family History: Father , details unknown. Mother of stroke, brother Alzheimer disease, cor onary artery disease and myocardial infarction. Past Surgical History: Tonsillectomy, appendectomy, hysterectomy, carpal tunnel surgery. Past Medical History: Severe COPD, atypical mycobacterium infection of lung, allergic rhinitis, hype rtension, hyperlipidemia, diverticulosis, osteoporosis, and hyponatremia. Physical Examination: Vital Signs: Blood pressure 151/94, pulse 96, respiratory rate 26, temperature 97.4, oxygen saturati on 100%. Weight 45.36 kg, height 5 feet 4 inches. General: Awake, alert, oriented, not in distress. HEENT: Head atraumatic, normocephalic. Conjunctivae nonerythematous. Sclerae white. Mouth, no thr ush or edema noted. Ears/Nose, no mass, lesion, discharge noted. Neck: Supple. No JVD, lymph nodes, bruit, thyromegaly noted. Lungs: Some scattered wheezing noted. Not in any respiratory distress. No crackles. Heart: Normal heart sounds, no murmur or gallop. Abdomen: Soft, bowel sounds normal. No guarding, rigidity, tenderness, mass, hepatosplenomegaly, dis tention, or bruit noted. Extremities: No leg edema. No calf tenderness. Skin: No rash, ulcer, cellulitis. Lymphatics: No lymph node enlargement in neck, supraclavicular, infraclavicular region. Neuro: No focal neurological deficit. Chest: Unremarkable. External Genitalia: Deferred. Rectal: Deferred. Laboratory Data: White count 14.4, hemoglobin 12.9, platelets 266. Sodium 137, potassium 4.1, chlor sancho 97, bicarb 33, BUN 18, creatinine 0.69, glucose 174. Liver function tests unremarkable. Troponi n less than 0.02. Procalcitonin less than 0.05. Lactic acid 1. Chest x-ray prominent COPD pattern with no acute cardiopulmonary changes, baseline fibrotic changes. EKG, normal sinus rhythm, right bu ndle branch block, septal infarct, age undetermined. Impression: 1.Acute exacerbation of chronic obstructive pulmonary disease. 2.Hypertension. 3.Hyperlipidemia. 4.Diverticulosis. 5.Osteoporosis. 6.Allergic rhinitis. 7.Rule out pneumonia. Plan: Admit the patient to hospital for further evaluation of this problem. Patient is appropriate for inpatient and is expected to spend 2 midnights in hospital. Home medications will be continued a nd we will give DVT prophylaxis per order. Oxygen nebulizer treatment, IV steroid, IV antibiotics wi ll be continued. I will see her tomorrow for followup. Details and plan of treatment discussed with the patient. YOSVANY/JESSICA Voice ID: [id number]
[2019-08-22] MEDS: METHYLPREDNISOLONE 125 MG INJ IV SCH ×3 (00:21→17:02)
[2019-08-22] MEDS: ALBUTEROL 2.5 MG/3 ML NEB SOL NEB SCH ×5 (04:00→20:00)
[2019-08-22] MEDS: IPRATROPIUM BROM 0.5MG/2.5ML NEB SCH ×5 (04:00→20:00)
[2019-08-22 04:10] LABS: Absolute Lymphocytes (CBC) 0.6 K/uL (0.7-4.9); Basophils % 0.1 % (0-1.3); Hematocrit 35.1 % (36.0-45.0); MPV 8.8 fL (7.6-11.3); RBC Red Blood Cell Count 3.84 M/uL (3.86-4.86)
[2019-08-22 04:19] LABS: BUN Blood Urea Nitrogen 13 mg/dL (7-18); Bicarbonate 32 mmol/L (21-32); Glucose Level 146 mg/dL (74-106); NT PRO-BNP 489 pg/mL (<450); Sodium Level 135 mmol/L (136-145)
[2019-08-22] MEDS: ASPIRIN EC 81 MG TAB PO SCH (08:50)
[2019-08-22] MEDS: ENOXAPARIN 30 MG/0.3 ML SQ SCH (08:50)
[2019-08-22] MEDS: ATORVASTATIN 20 MG TAB PO SCH (08:50)
[2019-08-22] MEDS: ALBUTEROL INHALER 60 PUFF/8 GM IH PRN ×2 (10:00→16:00)
[2019-08-22] MEDS: Levofloxacin 750mg IV 750 MG/150 ML BAG IV SCH (15:31)
[2019-08-22] MEDS: ENSURE ENLIVE 237 ML CAN PO SCH (20:07)
--- NOTE | 2019-08-22 22:41 | PN ---
Date of Progress Note: 08/22/2019 Subjective: Patient was seen this morning for followup. No new complaints, problems reported by kristie phillip. Physical Examination: General: Lying in bed not in distress. Vital Signs: Reviewed. HEENT: Unremarkable. Lungs: Clear to auscultation. Cardiac: Heart sounds normal. Abdomen: Soft, bowel sounds normal. No guarding, rigidity, tenderness, distention. Extremities: No leg edema. Laboratory Data: White count 7.5, hemoglobin 11.6, platelets 207. Sodium 135, potassium 4, chloride 100, bicarb 32, BUN 13, creatinine 0.54, glucose 146. Impression: 1.Acute exacerbation of Chronic obstructive pulmonary disease. 2.Rule out frazier virus disease 2019. 3.Hypertension. Plan: We will go ahead and continue current antibiotic, steroid, nebulizer treatment, oxygen. COVID -19 results hopefully will be back by tomorrow. Once it comes back negative then we can discontinue isolation. Possible discharge to go home either tomorrow or day after tomorrow depending on patient' s condition. Details and plan of treatment discussed with the patient. YOSVANY/MODL Voice ID: [id number] Report ID: [id number]
[2019-08-23] MEDS: METHYLPREDNISOLONE 125 MG INJ IV SCH ×3 (00:02→16:34)
[2019-08-23] MEDS: ALBUTEROL 2.5 MG/3 ML NEB SOL NEB SCH ×7 (04:00→23:30)
[2019-08-23] MEDS: IPRATROPIUM BROM 0.5MG/2.5ML NEB SCH ×7 (04:00→23:30)
--- NOTE | 2019-08-23 07:39 | EKG ---
Test Date: 2019-08-21 Test Time: 13:09:01 Soccer Referee: JOSEY MEASUREMENT RESULTS: Intervals: Rate: 96 ME: 172 QRSD: 126 QT: 424 QTc: 535 [place]: P: 89 ME: 172 QRS: 94 T: 63 INTERPRETIVE STATEMENTS: Sinus rhythm with premature atrial complexes with aberrant conduction Right bundle branch block Anteroseptal infarct, age undetermined Abnormal ECG Compared to ECG 08/21/2019 13:07:44 Atrial premature complex(es) now present Aberrant conduction of supraventricular beat(s) now present Myocardial infarct finding still present Electronically Signed On 08-23-19 07:35:08 CDT by El Toscano
[2019-08-23] MEDS: ASPIRIN EC 81 MG TAB PO SCH (08:38)
[2019-08-23] MEDS: ATORVASTATIN 20 MG TAB PO SCH (08:38)
[2019-08-23] MEDS: ENSURE ENLIVE 237 ML CAN PO SCH ×2 (08:39→19:51)
[2019-08-23] MEDS: ENOXAPARIN 30 MG/0.3 ML SQ SCH (08:39)
--- NOTE | 2019-08-23 11:39 | PN ---
Date of Progress Note: 08/23/2019 Subjective: Patient was seen this morning for followup. No new complaints, problems reported by kristie phillip. Overall, she feels better. Objective: Vital Signs: Reviewed. HEENT: Unremarkable. Lungs: Clear to auscultation. Heart: Sounds normal. Abdomen: Soft. Bowel sounds normal. No guarding, rigidity, tenderness, or distention. Extremities: No leg edema. Impression: 1.Acute exacerbation of chronic obstructive pulmonary disease. 2.Hypertension. 3.Rule out coronavirus disease 2019. Plan: Patient's COVID-19 test is pending. Continue current oxygen, nebulizer treatments, steroids, antibiotics. We will plan for discharge either today or tomorrow pending results of COVID-19. YOSVANY/MODL Voice ID: [id number] Report ID: [id number]
[2019-08-23] MEDS: Levofloxacin 750mg IV 750 MG/150 ML BAG IV SCH (15:25)
[2019-08-23 21:51] VITALS: BMI 19.7
[2019-08-24] MEDS: METHYLPREDNISOLONE 125 MG INJ IV SCH (00:07)
[2019-08-24] MEDS: IPRATROPIUM BROM 0.5MG/2.5ML NEB SCH ×2 (03:40→08:05)
[2019-08-24] MEDS: ALBUTEROL 2.5 MG/3 ML NEB SOL NEB SCH ×2 (03:40→08:05)
[2019-08-24] MEDS: ATORVASTATIN 20 MG TAB PO SCH (08:59)
[2019-08-24] MEDS: ASPIRIN EC 81 MG TAB PO SCH (08:59)
[2019-08-24] MEDS: ENOXAPARIN 30 MG/0.3 ML SQ SCH (09:00)
[2019-08-24] MEDS ORDERED: predniSONE 20 MG TAB PO SCH (09:00)
[2019-08-24] MEDS: ENSURE ENLIVE 237 ML CAN PO SCH (09:00)
[2019-08-24 09:11] VITALS: BP 132/75; TEMP 97.5
[2019-08-24 09:45] VITALS: O2SAT 99
--- NOTE | 2019-08-25 12:21 | DS ---
Date of Discharge: 08/24/2019 Disposition: Discharged to go home. Physical Examination: HEENT: Unremarkable. Lungs: Clear to auscultation. Heart: Sounds normal. Abdomen: Soft. Bowel sounds normal. No guarding, rigidity, tenderness, or distention. Extremities: No leg edema. Laboratory Data: Upon admission on 08/21/2019, white count 14.4, hemoglobin 12.9, platelets 266. On 08/22/2019, white count 7.5, hemoglobin 11.6, platelets 207. On 08/22/2019, sodium 135, potassium 4 , chloride 100, bicarb 32, BUN 13, creatinine 0.54, glucose 146, troponin less than 0.02, procalciton in less than 0.05, lactic acid level 1.2. Hospital Course: 79-year-old female patient admitted to hospital with shortness of breath complaint. Please see dictated H and P for more information. After patient was evaluated in the ER, she was a dmitted to the hospital and was admitted to the hospital for acute exacerbation of COPD problem. [facility] x-ray showed prominent COPD with no acute cardiopulmonary changes, some baseline fibrotic changes present. COVID-19 test was done and patient was kept in isolation until result came back, and result came back negative and isolation was discontinued. Patient was treated with oxygen, steroid, antibi otics and overall her condition improved. Details were discussed with the patient's daughter. Addis pacheco's daughter noted some confusion when she was talking to patient from time to time during this hosp italization. I have not noticed that when I visited her, but I did explain it to the patient's daugh ter that some confusion if she notices while the patient is in the hospital is to be expected due to her age, but that should clear up as soon as patient gets out of the hospital, and patient's daughter did inform me that during past hospital stay similar problem happened as well. Final Diagnoses: 1.Acute exacerbation of chronic obstructive pulmonary disease. 2.Hypertension. 3.Hyperlipidemia. 4.Diverticulosis. 5.Osteoporosis. 6.Allergic rhinitis. Discharge Medications And Instructions: 1.Continue all prior home medications. 2.Take prednisone 10 mg, patient to take 2 tablets daily for 4 days, then 1 tablet daily for 4 days, then 1/2 tab daily for 4 days, then stop. 3.Take antibiotic, Levaquin 500 mg daily, for 5 days. 4.Follow up at my office week after next. YOSVANY/MODL Voice ID: [id number] Report ID: [id number]
== END 2019-08-24 11:23 | disposition home or self-care (01) | DRG 192 ==
LOC: SUPCPDRO 12:38 → ER 12:38 → ERHOLD 17:06 → 4TH 18:17 → 2ND 08-23 21:10
PROVIDERS: ADMIT Internal Medicine; ATTEND Internal Medicine
PROC: 8E0ZXY6 Isolation (ICD-10-PCS; principal; 2019-08-21)
DX: J44.1 Chronic obstructive pulmonary disease with (acute) exacerbation (principal); I10 Essential (primary) hypertension; E78.5 Hyperlipidemia, unspecified; K57.90 Diverticulosis of intestine, part unspecified, without perforation or abscess without bleeding; M81.0 Age-related osteoporosis without current pathological fracture; J30.9 Allergic rhinitis, unspecified; Z20.828 Contact with and (suspected) exposure to other viral communicable diseases; Z87.891 Personal history of nicotine dependence; Z90.49 Acquired absence of other specified parts of digestive tract; Z90.710 Acquired absence of both cervix and uterus; Z79.899 Other long term (current) drug therapy
CPT/HCPCS: 36415; 71045; 80048; 80076; 82947; 83605; 83735; 83880; 84145; 84484; 85025; 85610; 87040; 87804; 93005; 94660; 94760; 96365; 96366; 99285; J1650; J2930; J7512; U0001

== ENCOUNTER 2020-12-21 14:47 | Inpatient (IN) | payer OTHER ==
--- OUTSIDE RECORDS SUMMARY | 2020-12-21 14:49 | XMS REPORT | Continuity of Care Document ---
:1940 Author Organization [facility] t Address [address] [place] [address] Care Team Providers Name Role Phone ANTONOFF Primary Care Physician Unavailable NICOL Attending Clinician Unavailable Payers Payer Name Policy Type Policy Number Effective Date Expiration Date S kevin MEDICARE PART A [id number] 2006 AND B 00:00:00 FOR LIFE [id number] 2016 00:00:00 Problems This patient has no known problems. Allergies, Adverse Reactions, Alerts Allergy Allergy Status Severity Reaction(s) Onset Inactive Treating Comm ents Source Name Type Date Date Clinician No Known DA Active U [facility]ie 05-27 Mallorie s 00:00: d 00 [facility] Medications This patient has no known medications. Vital Signs Vital Name Observation Time Observation Value Comments Source WEIGHT 2019-12-19 13:43:00 50 kg Procedures This patient has no known procedures. Encounters Start End Encounter Admission Attending Care Care Encounter Source Date/Time Date/Time Type Type Clinicians Facility Department ID 2019-12-19 2019-12-19 Outpatient TAMMIE GANN [facility], [facility] [id number] 10:48:10 23:59:00 Devyn o n 2019-12-19 2019-12-19 Outpatient TAMMIE GANN [facility], [facility] [id number] 12:26:24 14:37:46 Devyn girard 2019-12-19 2019-12-19 Outpatient TAMMIE GANN [facility] [id number] 10:47:56 10:47:56 Devyn girard Results Test Description Test Time Test Comments Results Result Comments Source SURG 2020-06-01 14:59:00 Test Item Value Reference Range Interpretation Comme nts SURG RUN (test DATE: 06/01/20 [facility] - LAB PAGE 1 RUN TIME: code = 1459 Specimen Inquiry RUN USER: INTERFACE SURG) JUSTIN NT: KAYLIE ARTHUR ACCLiane #: [id number] LOC: ShelbyJORDI U #: [id number] AGE/SX: 80/F ROOM: RE05/29/20[facility] DR: Yuliet Levin MD : 41 BED : DIS: STATUS: MAIKEL [facility] TLOC: SPEC #: [id number] RECD: 05/29/20-1236 STATUS: EDY DAVIS #: [id number] MAGALI: 05/29/20 [facility] [address]: Yuliet Levin MD ENTERED: 05/29/20 SP TYPE: CARLOS RG OTHR DR: Jose Kitchen MD ORDERED: SURG PATH LVL 4 COPIES TO: Jose Kitchen MD [address] [address] Yuliet Levin MD [address] [place] [address] HISTOLOGY: TISSUE ID BLK PCS FIORDALIZA LEV WI OCEDURE DISPOSITION ____ ___ ___ ___ RECTUM, NOS A 1 2 PROCEDURES: SURG PATH LVL 4 (05/29/20) TISSUES: A. RECTUM, NOS - RECTAL COLON BIOPSY CLINICAL HIST ORY Z86.0: HX OF POLYP CPT CODES CPT CODE(S): 34682 , , , , , , FINAL DIAGNOSIS Colon, rectum, biopsy: HYPERPLASTIC POLYP GROSS DESCRIPTION Rectal colon biopsy. Received in formalin is a ta n tissue fragment, 0.2 cm, all as A. ba/nr Grossing performed at [facility] Pathology, [address] [place] [address], [address], [place] [address]. Fire Marshal: Sivakumar yanez M.D. CONTINUED ON NEXT PAGE RUN DATE: 06/01/20 [facility] PAGE 2 RUN TIME: 1459 Specimen Inquiry RUN USER: INTERFACE SPEC #: [facility]:[id number] PATIENT: KAYLIE ARTHUR #[id number] (Continued) ------ MICROSCOPIC DESC RIPTION Rectal colon biopsy. Sections demonstrate colonic mucosa with glands demonstrating increased mucin of the stellate architecture. No hyperchromasia and nuclear crowding is present. No dysplasia or keith gnancy is seen. Signed SIGNATURE ON FILE Yazan Cerna Milly 06/01/20 1459 END OF REPORT CBC W/AUTO [id number] 06:46:00 Test Item Value Reference Range Interpretation Comments WHITE BLOOD CELL (test code = 12.4 K/mm3 3.5-11.0 H WBC) RED BLOOD CELL (test code = 4.04 M/mm3 4.70-6.10 L RBC) HEMOGLOBIN (test code = HGB) 12.4 G/DL 10.4-14.9 N HEMATOCRIT (test code = HCT) 39.0 % 31.5-44.1 N MEAN CELL VOLUME (test code = 96.5 Fl 84.5-98.6 N MCV) MEAN CELL HGB (test code = MCH) 30.7 pg 27.0-34.2 N MEAN CELL HGB CONCETRATION 31.8 G/DL 31.5-34.0 N (test code = MCHC) RED CELL DISTRIBUTION WIDTH 12.5 SD 11.5-14.5 N (test code = RDW) PLATELET COUNT (test code = 226 K/mm3 150-450 N PLT) MEAN PLATELET VOLUME (test code 10.80 fL 7.0-10.5 H = MPV) NEUTROPHIL % (test code = NT%) 69.3 % 40-76 N IMMATURE GRANULOCYTE % (test 0.2 % 0.0-5.0 N code = IG%) LYMPHOCYTE % (test code = LY%) 20.7 % 20.5-51.1 N MONOCYTE % (test code = MO%) 8.4 % 1.7-9.3 N EOSINOPHIL % (test code = EO%) 0.9 % 0.0-6.0 N BASOPHIL % (test code = BA%) 0.5 % 0.0-2.0 N NUCLEATED RBC % (test code = 0.0 /100WBC% 0.0-1.0 N NRBC%) NEUTROPHIL # (test code = NT#) 8.6 K/mm3 1.8-7.6 H IMMATURE GRANULOCYTE # (test 0.03 x10 3/uL 0.00-0.03 N code = IG#) LYMPHOCYTE # (test code = LY#) 2.6 K/mm3 0.6-3.2 N MONOCYTE # (test code = MO#) 1.0 K/mm3 0.3-1.1 N EOSINOPHIL # (test code = EO#) 0.1 K/mm3 0.0-0.4 N BASOPHIL # (test code = BA#) 0.1 K/mm3 0.0-0.1 N NUCLEATED RBC # (test code = 0.0 K/mm3 0.0-0.1 N NRBC#) MANUAL DIFF REQUIRED (test code NO DIFF/SCN CRITERIA = MDIFF) COVID 19 INHOUSE [id number] 12:00:00 Test Item Value Reference Range Interpretation Comments COVID 19 INHOUSE AG NEGATIVE Negative Per manu facturer, (test code = negative result s should [id number]) be treated aspr esumptive and, if inconsi stent with clinical signs andsymptoms or necessary for patient man agement, should betested with an alternative mol ecular assay. Negative resultsdo not preclude SA RS-CoV-2 infection and s hould not be usedas the s ole basis for patient man agement decisions. Neg ative results should be considered in t he context of apatient's r ecent exposures, hist ory, presence of cli nicalsigns and symptoms co nsistent with COVID-19.
--- NOTE | 2020-12-21 15:26 | RAD REPORT ---
EXAM DESCRIPTION: RAD - Chest Single View - 12/21/2020 3:18 pm CLINICAL HISTORY: DYSPNEA COMPARISON: Chest Single View dated 08/21/2019; Chest Pa And Lat (2 Views) dated 06/13/2019; Chest Sing le View dated 06/11/2019; Chest Pa And Lat (2 Views) dated 05/31/2018 FINDINGS: Emphysema with patchy airspace disease noted in the left mid lung and left lung base. Mild cardiomegaly. AtherosclerosisNo acute osseous abnormality. No significant pleural effusions or pneum othorax. IMPRESSION: Ill-defined left mid lung and basilar opacities concerning for pneumonia. Background of emphysema.
[2020-12-21 15:28] LABS: Absolute Lymphocytes (CBC) 0.4 K/uL (0.7-4.9); Basophils % 0.1 % (0-1.3); Lymphocytes % 1.7 % (15.3-44.8); MPV 8.3 fL (7.6-11.3); RBC Red Blood Cell Count 3.49 M/uL (3.86-4.86)
[2020-12-21 15:35] LABS: Protime INR 0.99
[2020-12-21 15:44] LABS: Urine Blood Trace-intact (Negative); Urine Glucose Trace (Negative); Urine Protein 2+ (Negative); Urine Specific Gravity 1.025 (1.005-1.030)
[2020-12-21 15:47] LABS: ALT/SGPT 25 U/L (12-78); AST/SGOT 12 U/L (15-37); Albumin 2.4 g/dL (3.4-5.0); Alkaline Phosphatase 62 U/L (45-117); BUN Blood Urea Nitrogen 17 mg/dL (7-18); Bicarbonate 30 mmol/L (21-32); Bilirubin Direct < 0.1 mg/dL (0-0.2); Bilirubin Total 0.3 mg/dL (0.2-1.0); Ferritin 314.8 ng/mL (8-388); Glucose Level 155 mg/dL (74-106); Lipase 60 U/L (73-393); NT PRO-BNP 1491 pg/mL (<450); Potassium 3.7 mmol/L (3.5-5.1); Protein, Total 6.3 g/dL (6.4-8.2); Sodium Level 136 mmol/L (136-145); Troponin (Emerg Dept Use Only) < 0.02 ng/mL (0.0-0.045)
[2020-12-21] MEDS ORDERED: NA CHLORIDE 0.9% 1,000 ML ONE ×2 (15:56→16:41)
[2020-12-21] MEDS ORDERED: CEFTRIAXONE/SWI 1gm 1 GM/10 ML SYR ONE (15:56)
[2020-12-21 16:00] LABS: Urine Bacteria <20 /HPF (<20); Urine RBC <5 /HPF (NONE SEEN)
[2020-12-21] MEDS ORDERED: AZITHROMYCIN IV 500 MG in NA CHLORIDE 0.9% 250 ML IVPB ONE (16:00)
[2020-12-21 16:01] LABS: Urine Mucus 1+ /HPF (NONE SEEN)
--- NOTE | 2020-12-21 17:18 | ER ---
Nurse's Notes [facility] Name: Keshia Madsen Age: 80 yrs Sex: Female : 1940 Arrival Date: 12/21/2020 Time: 14:49 Bed 14 Private MD: Diagnosis: Severe sepsis with septic shock;Pneumonia, unspecified organism Presentation: 12/21 14:49 Chief complaint: Patient states: Generalized weakness and shakiness for a few days. ll1 Seen at [place] a couple days ago. Diagnosed with UTI per patient, family denies anything was found. Denies pain at this time. Had R lower back pain earlier. + fever at home. O2 sat. dropped to 78% with exertion. EMS states: Fingerstick 228. Given Tylenol 1 GM PO en route for fever. Coronavirus screen: Client denies travel out of the [place] in the last 14 days. difficulty breathing, fatigue, fever, shortness of breath, Client presents with at least one sign or symptom that may indicate coronavirus-19. Standard/surgical mask placed on the client. Ebola Screen: Patient denies travel to an Ebola-affected area in the 21 days before illness onset. No symptoms or risks identified at this time. No acute neurological deficit is noted. The patients blood glucose was checked prior to arriving to the hospital and was found to be hyperglycemic. Initial Sepsis Screen: Does the patient meet any 2 criteria? No. Patient's initial sepsis screen is negative. Does the patient have a suspected source of infection? Yes: Dysuria/Frequency/Urgency/UTI. Risk Assessment: Do you want to hurt yourself or someone else? Patient reports no desire to harm self or others. Onset of symptoms was December 18, 2020. 14:49 Method Of Arrival: EMS 1 14:49 Acuity: STERL[place] 3 ll1 Stroke Activation: Symptom onset > 6 hours Physician: Stroke Attending; Name: ; Notified At: ; Arrived At: Physician: Chief Stroke Resident; Name: ; Notified At: ; Arrived At: Physician: Stroke Resident; Name: ; Notified At: ; Arrived At: Physician: ED Attending; Name: ; Notified At: ; Arrived At: Physician: ED Resident; Name: ; Notified At: ; Arrived At: Historical: - Allergies: 14:55 No Known Allergies; ll1 - PMHx: 14:55 COPD; High Cholesterol; stapholococcal pneumonia; ll1 - Immunization history:: Client reports receiving the 2nd dose of the Covid vaccine, Flu vaccine is not up to date. - Social history:: Smoking status: Patient/guardian denies using tobacco, Stopped _ months ago 6. Screenin:56 Abuse screen: Denies threats or abuse. Nutritional screening: No deficits noted. ll1 Tuberculosis screening: No symptoms or risk factors identified. Fall Risk Secondary diagnosis (15 points) COPD. IV access (20 points). Gait- Weak (10 pts.). Total Adhikari Fall Scale indicates High Risk Score (45 or more points). Fall prevention measures have been instituted. Side Rails Up X 2 Frequent Obs/Assessments Occuring As available patient and family educated on Fall Prevention Program and Strategies. Assessment: 14:50 VAN Scoring: Arm Drift: Patients demonstrates NO arm weakness. Patient is VAN Negative. ll1 Visual Disturbance: No visual disturbance noted. Aphasia: No aphasia noted. Neglect: No neglect noted. T-PA (Activase) Screening: Indications: Treatment will start within 4.5 hours onset of symptoms: No. General: Appears in no apparent distress. Behavior is calm, cooperative, appropriate for age. General: fever. Pain: Denies pain. Neuro: Level of Consciousness is awake, alert, obeys commands, Oriented to person, place, time, situation, Appropriate for age Psychiatric Social Worker are weak bilaterally Full function Weakness Speech is normal, Facial symmetry appears normal, Pupils are PERRLA, Reports weakness shakiness for a few days. Cardiovascular: No deficits noted. Respiratory: Reports SOB with exertion Airway is patent Trachea midline Respiratory effort is even, unlabored, Respiratory pattern is regular, symmetrical, Breath sounds are diminished bilaterally. the patient has moderate shortness of breath. GI: No deficits noted. : No deficits noted. 19:00 Reassessment: Patient and/or family updated on plan of care and expected duration. Pain jb4 level reassessed. Pt is A\T\Ox4, respirations are even, symmetrical, tachypneic, and labored. Remains on 4L NC. No s/s of distress noted. Vital Signs: 14:49 BP 97 / 59; Pulse 79; Resp 20; Temp 101.8(O); Pulse Ox 95% on R/A; Weight 50.8 kg; ll1 Height 5 ft. 5 in. (165.10 cm); Pain 0/10; 15:49 BP 104 / 63; Pulse 57; Resp 20; Pulse Ox 94% on 4 lpm NC; ll1 17:17 Temp 98.1; ll1 14:49 Body Mass Index 18.64 (50.80 kg, 165.10 cm) ll1 NIH Stroke Scale Scores: 14:50 NIHSS Score: 0 ll1 ED Course: 14:05 Inserted saline lock: 22 gauge in right forearm, using aseptic technique. Blood ll1 collected. 14:49 Patient arrived in ED. ll1 14:49 Soto Arriola PA is PHCP. jr8 14:49 Bernard Velazquez MD is Attending Physician. jr8 14:55 Triage completed. ll1 14:55 Arm band placed on Patient placed in an exam room, on a stretcher. ll1 14:55 Patient has correct armband on for positive identification. Bed in low position. Call ll1 light in reach. Side rails up X2. design eng on. Pulse ox on. NIBP on. 15:15 Marquise Cui RN is Primary Nurse. 1 15:18 CXR XRAY In Process Unspecified. EDMS 17:17 Víctor Kitchen MD is Hospitalizing Provider. jr8 19:00 No provider procedures requiring assistance completed. Patient admitted, IV remains in jb4 place. 19:20 Primary Nurse role handed off by Marquise Cui RN mw2 12/22 05:10 Inserted saline lock: 22 gauge in left wrist, using aseptic technique. Blood collected. ds4 Administered Medications: 12/21 15:48 Drug: Rocephin (cefTRIAXone) 1 grams Route: IV; Rate: calculated rate; Site: right ll1 forearm; 17:08 Follow up: Response: No adverse reaction; IV Status: Completed infusion; IV Intake: 45ptam0 15:48 Drug: NS 0.9% 1000 ml Route: IV; Rate: 1000 ml; Site: right forearm; ll1 17:08 Follow up: Response: No adverse reaction; IV Status: Completed infusion; IV Intake: ll1 1000ml 17:08 Drug: NS 0.9% 1000 ml Route: IV; Rate: 1000 ml; Site: right forearm; ll1 17:16 Drug: Zithromax (azithromycin) 500 mg Route: IVPB; Infused Over: 1 hrs; Site: right ll1 forearm; 18:25 Drug: HYDROcodone-acetaminophen 5 mg-325 mg 1 tabs Route: PO; ll1 19:08 Not Given (Patient Refused): Motrin (ibuprofen) 400 mg PO once ll1 Intake: 17:08 IV: 1000ml; Total: 1000ml. ll1 17:08 IV: 10ml; Total: 1010ml. ll1 Outcome: 17:18 Decision to Hospitalize by Provider. jr8 19:00 Admitted to ER Hold. Please see [facility] for further documentation. jb4 19:00 Condition: stable 19:00 Discharge instructions given to patient, Instructed on the need for admit, Demonstrated understanding of instructions. 12/22 09:59 Patient left the ED. ll1 NIH Stroke Scale - NIH Stroke Score Date: 12/21/2020 Time: 14:50 Total Score = 0 1a. Level of Consciousness (LOC) - 0(Alert) 1b. Level of Consciousness (LOC) (Month \T\ Age) - 0(Both) 1c. LOC Commands (Open \T\ Closes Eyes/Assistant Account Manager) - 0(Both) 2. Best Gaze (Lateral Gaze Paresis) - 0(Normal) 3. Visual Field Loss - 0(No visual loss) 4. Facial Palsy - 0(Normal) 5a. Left Arm: Motor (10-second hold) - 0(No drift) 5b. Right Arm: Motor (10-second hold) - 0(No drift) 6a. Left Leg: Motor (5-second hold - always test supine) - 0(No drift) 6b. Right Leg: Motor (5-second hold - always test supine) - 0(No drift) 7. Limb Ataxia (finger/nose \T\ heel/oh - test with eyes open) - 0(Absent) 8. Sensory Loss (pinprick arms/legs/face) - 0(Normal) 9. Best Language: Aphasia (description/naming/reading) - 0(No aphasia) 10. Dysarthria (speech clarity - read or repeat words) - 0(Normal) 11. Extinction and Inattention (visual/tactile/auditory/spatial/personal) - 0(No abnormality) Initials: ll1 Signatures: Dispatcher [employer] EDMS Soto Arriola PA PA jr8 Bahman Garcia4 Edgard Bertrand RN RN jb4 John Paul Christensen mw2 Marquise Cui, RN RN ll1
--- NOTE | 2020-12-21 17:18 | EDPHYS ---
Physician Documentation [facility] Name: Keshia Madsen Age: 80 yrs Sex: Female : 1940 Arrival Date: 12/21/2020 Time: 14:49 Bed 14 Private MD: ED Physician Bernard Velazquez HPI: 12/21 15:05 This 80 yrs old Female presents to ER via EMS with complaints of Weakness - jr8 shakey. 15:05 This is a 80-year-old female who presented to the emergency room via EMS for increased jr8 weakness and fatigue. Patient now running a 101.8 temperature. EMS stated that she normally is on home oxygen for COPD but that she abruptly desatted with any kind of movement today. Patient was seen at [facility] emergency room yesterday for the weakness and was diagnosed with urinary tract infection and put on antibiotics. Patient has not filled her prescriptions as of yet.. Severity of symptoms: At their worst the symptoms were moderate in the emergency department the symptoms are unchanged. The patient has not experienced similar symptoms in the past. The patient has not recently seen a physician. Historical: - Allergies: 14:55 No Known Allergies; ll1 - PMHx: 14:55 COPD; High Cholesterol; stapholococcal pneumonia; ll1 - Immunization history:: Client reports receiving the 2nd dose of the Covid vaccine, Flu vaccine is not up to date. - Social history:: Smoking status: Patient/guardian denies using tobacco, Stopped _ months ago 6. ROS: 15:05 Cardiovascular: Negative for chest pain, palpitations, and edema, Abdomen/GI: Negative jr8 for abdominal pain, nausea, vomiting, diarrhea, and constipation, Back: Negative for injury and pain. 15:05 Constitutional: Positive for fatigue, fever, malaise. 15:05 Respiratory: Positive for shortness of breath. 15:05 All other systems are negative. Exam: 15:05 Constitutional: This is a well developed, well nourished patient who is awake, alert, jr8 and in no acute distress. ENT: Nares patent. No nasal discharge, no septal abnormalities noted. Tympanic membranes are normal and external auditory canals are clear. Oropharynx with no redness, swelling, or masses, exudates, or evidence of obstruction, uvula midline. Mucous membranes moist. Neck: Trachea midline, no thyromegaly or masses palpated, and no cervical lymphadenopathy. Supple, full range of motion without nuchal rigidity, or vertebral point tenderness. No Meningismus. Cardiovascular: Regular rate and rhythm with a normal S1 and S2. No gallops, murmurs, or rubs. Normal PMI, no JVD. No pulse deficits. Respiratory: Lungs have equal breath sounds bilaterally, clear to auscultation and percussion. No rales, rhonchi or wheezes noted. No increased work of breathing, no retractions or nasal flaring. Abdomen/GI: Soft, non-tender, with normal bowel sounds. No distension or tympany. No guarding or rebound. No evidence of tenderness throughout. Back: No spinal tenderness. No costovertebral tenderness. Full range of motion. Skin: Warm, dry with normal turgor. Normal color with no rashes, no lesions, and no evidence of cellulitis. MS/ Extremity: Pulses equal, no cyanosis. Neurovascular intact. Full, normal range of motion. Neuro: Awake and alert, GCS 15, oriented to person, place, time, and situation. Cranial nerves II-XII grossly intact. Motor strength 5/5 in all extremities. Sensory grossly intact. Vital Signs: 14:49 BP 97 / 59; Pulse 79; Resp 20; Temp 101.8(O); Pulse Ox 95% on R/A; Weight 50.8 kg; ll1 Height 5 ft. 5 in. (165.10 cm); Pain 0/10; 15:49 BP 104 / 63; Pulse 57; Resp 20; Pulse Ox 94% on 4 lpm NC; ll1 17:17 Temp 98.1; ll1 14:49 Body Mass Index 18.64 (50.80 kg, 165.10 cm) ll1 NIH Stroke Scale Scores: 14:50 NIHSS Score: 0 ll1 MDM: 14:49 Patient medically screened. jr8 17:14 Data reviewed: vital signs, nurses notes, lab test result(s), EKG, radiologic studies, jr8 plain films. Data interpreted: Pulse oximetry: on room air is 94 %. Interpretation: normal. Counseling: I had a detailed discussion with the patient and/or guardian regarding: the historical points, exam findings, and any diagnostic results supporting the discharge/admit diagnosis, lab results, radiology results, the need for further work-up and treatment in the hospital. ED course: Dr. Kitchen called and will accept patient for admission . 12/21 14:50 Order name: BMP [facility] 12/21 14:50 Order name: Blood Culture Adult (2) 12/21 14:50 Order name: C-Reactive Protein 12/21 14:50 Order name: CBC with Diff 12/21 14:50 Order name: D-Dimer 12/21 14:50 Order name: Ferritin 12/21 14:50 Order name: Flu 12/21 14:50 Order name: LFT's; Complete Time: 16:04 [facility] 12/21 14:50 Order name: Lactate; Complete Time: 15:44 [facility] 12/21 14:50 Order name: Lipase; Complete Time: 16:04 [facility] 12/21 14:50 Order name: PT-INR; Complete Time: 17:12 [facility] 12/21 14:50 Order name: Procalcitonin; Complete Time: 17:12 [facility] 12/21 14:50 Order name: Ptt, Activated; Complete Time: 17:12 [facility] 12/21 14:50 Order name: Troponin (emerg Dept Use Only); Complete Time: 16:04 [facility] 12/21 14:50 Order name: Urine Microscopic Only; Complete Time: 16:04 [facility] 12/21 14:50 Order name: BNP; Complete Time: 16:04 [facility] 12/21 14:51 Order name: Basic Metabolic Panel; Complete Time: 16:04 [facility] 12/21 14:51 Order name: Blood Culture [facility] 12/21 14:51 Order name: C-Reactive Protein; Complete Time: 16:04 [facility] 12/21 14:51 Order name: CBC with Automated Diff; Complete Time: 17:23 [facility] 12/21 14:51 Order name: D-Dimer; Complete Time: 17:12 [facility] 12/21 14:51 Order name: Ferritin; Complete Time: 16:04 [facility] 12/21 14:51 Order name: Influenza Screen (A ; Complete Time: 16:18 [facility] 12/21 14:52 Order name: Magnesium; Complete Time: 15:44 8 12/21 15:33 Order name: CBC Smear Scan; Complete Time: 17:23 [facility] 12/21 15:44 Order name: Urine Dipstick-Ancillary; Complete Time: 16:04 [facility] 12/21 16:52 Order name: SARS-COV-2 RT PCR; Complete Time: 17:12 ED[facility] 12/22 00:51 Order name: ABG Arterial Blood Gas [facility] 12/22 05:35 Order name: Basic Metabolic Panel [facility] 12/21 14:50 Order name: CXR XRAY; Complete Time: 15:28 [facility] 12/21 14:50 Order name: EKG; Complete Time: 14:51 [facility] 12/21 14:50 Order name: Cardiac monitoring; Complete Time: 15:30 8 12/21 14:50 Order name: Droplet/Contact Precautions; Complete Time: 15:16 [facility] 12/21 14:50 Order name: EKG - Nurse/Tech; Complete Time: 15:30 [facility] 12/21 14:50 Order name: [place]; Complete Time: 15:30 [facility] 12/21 14:50 Order name: IV Start; Complete Time: 15:16 [facility] 12/21 14:50 Order name: Labs collected and sent; Complete Time: 15:16 [facility] 12/21 14:50 Order name: O2 Per Protocol; Complete Time: 15:16 8 12/21 14:50 Order name: O2 Sat Monitoring; Complete Time: 15:16 [facility] 12/21 14:50 Order name: Urine Dipstick-Ancillary (obtain specimen); Complete Time: 15:44 8 12/21 17:24 Order name: CT Chest For PE Angio jr8 12/21 18:07 Order name: CT; Complete Time: 18:15 [facility] 12/22 05:46 Order name: CBC with Automated Diff [facility] 12/22 09:00 Order name: Manual Differential [facility] Administered Medications: 15:48 Drug: Rocephin (cefTRIAXone) 1 grams Route: IV; Rate: calculated rate; Site: right ll1 forearm; 17:08 Follow up: Response: No adverse reaction; IV Status: Completed infusion; IV Intake: 04tziv5 15:48 Drug: NS 0.9% 1000 ml Route: IV; Rate: 1000 ml; Site: right forearm; ll1 17:08 Follow up: Response: No adverse reaction; IV Status: Completed infusion; IV Intake: ll1 1000ml 17:08 Drug: NS 0.9% 1000 ml Route: IV; Rate: 1000 ml; Site: right forearm; ll1 17:16 Drug: Zithromax (azithromycin) 500 mg Route: IVPB; Infused Over: 1 hrs; Site: right ll1 forearm; 18:25 Drug: HYDROcodone-acetaminophen 5 mg-325 mg 1 tabs Route: PO; ll1 19:08 Not Given (Patient Refused): Motrin (ibuprofen) 400 mg PO once ll1 Disposition: 12/22 07:06 Co-signature as Attending Physician, Bernard Velazquez MD I agree with the assessment and rn plan of care. Attestation: The patient's history, exam findings, diagnostics, and a summary of any interventions or procedures was reviewed in detail with Soto CALLAHAN. Disposition Summary: 12/21/20 17:18 Hospitalization Ordered Hospitalization Status: Inpatient Admission jr8 Provider: Víctor Kitchen Condition: Stable jr8 Problem: new jr8 Symptoms: have improved jr8 Bed/Room Type: Standard [facility] Location: Telemetry/MedSurg (Inpatient)(12/22/20 08:54) bd Room Assignment: 210(12/22/20 08:54) bd Diagnosis - Severe sepsis with septic shock jr8 - Pneumonia, unspecified organism jr8 Forms: - Medication Reconciliation Form jr8 - SBAR form jr8 NIH Stroke Scale - NIH Stroke Score Date: 12/21/2020 Time: 14:50 Total Score = 0 1a. Level of Consciousness (LOC) - 0(Alert) 1b. Level of Consciousness (LOC) (Month \T\ Age) - 0(Both) 1c. LOC Commands (Open \T\ Closes Eyes/[employer]aurant [employer] Manager) - 0(Both) 2. Best Gaze (Lateral Gaze Paresis) - 0(Normal) 3. Visual Field Loss - 0(No visual loss) 4. Facial Palsy - 0(Normal) 5a. Left Arm: Motor (10-second hold) - 0(No drift) 5b. Right Arm: Motor (10-second hold) - 0(No drift) 6a. Left Leg: Motor (5-second hold - always test supine) - 0(No drift) 6b. Right Leg: Motor (5-second hold - always test supine) - 0(No drift) 7. Limb Ataxia (finger/nose \T\ heel/oh - test with eyes open) - 0(Absent) 8. Sensory Loss (pinprick arms/legs/face) - 0(Normal) 9. Best Language: Aphasia (description/naming/reading) - 0(No aphasia) 10. Dysarthria (speech clarity - read or repeat words) - 0(Normal) 11. Extinction and Inattention (visual/tactile/auditory/spatial/personal) - 0(No abnormality) Initials: ll1 Signatures: Dispatcher [employer] EDMS Keshia Melara Roman, MD MD rn Roszak, Josh, PA PA [facility] Padmini Gibbons RN RN Marquise Robert RN RN ll1 Corrections: (The following items were deleted from the chart) 12/21 15:40 14:52 CORONAVIRUS+MR.LAB.BRZ ordered. [facility] EDAR 17:18 Telemetry/MedSurg (Inpatient) [facility] : 17:18 [facility] 12/22 08:54 12/21 21:23 [facility] ER HOLD [facility] 12/22 08:54 12/21 21:23 ERHOLD- [facility]
[2020-12-21 17:21] LABS: White Blood Cell Scan OK (OK)
[2020-12-21 17:22] LABS: Anisocytosis 1+; Blood Morphology Comment NOTED (NOT SEEN); Platelet Estimate ADEQ; Poikilocytosis 1+
--- NOTE | 2020-12-21 18:06 | RAD REPORT ---
EXAM DESCRIPTION: CT - Chest For Pe Angio - 12/21/2020 5:52 pm CLINICAL HISTORY: CHEST PAIN COMPARISON: Thorax Wo Con dated 07/13/2018; Chest For Pe Angio dated 08/16/2016; Ct Low Dose Chest Marilyne frank dated 10/28/2015; Chest Single View dated 12/21/2020 FINDINGS: Chest Wall: No suspicious thyroid nodules or pathologic lymphadenopathy. Lungs: Emphysema. A consolidative airspace disease is present in the left lower lobe. Pleura: No significant effusions or pneumothorax. Mediastinum/jason: No pathologic lymphadenopathy. Small hiatal hernia. Pulmonary arteries/Aorta: No filling defect identified. No aortic aneurysm. Enlarged main pulmonary a rtery. Heart: No significant pericardial effusion. Normal heart size. Coronary artery calcifications. Upper abdomen: No acute abnormality. Left renal lesion, likely a cyst peer Bones: No acute abnormality. IMPRESSION: Negative for pulmonary embolism. Partially consolidative airspace disease in the left lo wer lobe concerning for pneumonia, presumably bacterial. Emphysema.
[2020-12-21] MEDS ORDERED: HYDROCODONE/APAP 5/325 MG TAB ONE (18:44)
[2020-12-21] MEDS ORDERED: ALBUTEROL 2.5 MG/3 ML NEB SOL NEB PRN (19:55)
[2020-12-21] MEDS ORDERED: ONDANSETRON 4 MG/2 ML VIAL IV PRN (19:55)
[2020-12-21] MEDS ORDERED: IPRATROPIUM BROM 0.5MG/2.5ML NEB PRN (19:55)
[2020-12-21] MEDS ORDERED: ALBUTEROL 2.5 MG/3 ML NEB SOL ONE (21:14)
[2020-12-21] MEDS ORDERED: IPRATROPIUM BROM 0.5MG/2.5ML ONE (21:14)
[2020-12-21 22:50] VITALS: BMI 18.6
[2020-12-22] MEDS ORDERED: LORazepam 2 MG/ML VIAL IV ONE (00:16)
[2020-12-22] MEDS ORDERED: LORazepam 2 MG/ML VIAL IV PRN (00:17)
[2020-12-22] MEDS: METHYLPREDNISOLONE 40 MG INJ IV SCH ×3 (00:37→16:48)
[2020-12-22 00:50] LABS: Blood Gas Oxyhemoglobin 88.2 % (94-97); Blood O2 Saturation 89.9 % (92-98.5)
[2020-12-22] MEDS ORDERED: LORazepam 2 MG/ML VIAL ONE (00:50)
[2020-12-22] MEDS ORDERED: METHYLPREDNISOLONE 40 MG INJ ONE ×2 (00:50→08:05)
[2020-12-22 05:34] LABS: Absolute Lymphocytes (CBC) 0.5 K/uL (0.7-4.9); Basophils % 0.1 % (0-1.3); Hematocrit 35.4 % (36.0-45.0); MPV 8.3 fL (7.6-11.3); RBC Red Blood Cell Count 3.84 M/uL (3.86-4.86)
[2020-12-22 05:35] LABS: BUN Blood Urea Nitrogen 11 mg/dL (7-18); Bicarbonate 30 mmol/L (21-32); Glucose Level 155 mg/dL (74-106); Potassium 3.9 mmol/L (3.5-5.1); Sodium Level 140 mmol/L (136-145)
[2020-12-22] MEDS: Levofloxacin500mg IV 500 MG/100 ML BAG IV SCH (06:00)
[2020-12-22] MEDS ORDERED: Levofloxacin500mg IV 500 MG/100 ML BAG IV ONE (06:56)
--- NOTE | 2020-12-22 07:57 | EKG ---
Test Date: 2020-12-21 Test Time: 15:27:52 Manager Division: [facility]REG MEASUREMENT RESULTS: Intervals: Rate: 63 AR: 152 QRSD: 90 QT: 412 QTc: 421 Mars: P: 68 AR: 152 QRS: 72 T: 85 INTERPRETIVE STATEMENTS: Normal sinus rhythm with sinus arrhythmia Septal infarct, age undetermined Abnormal ECG Compared to ECG 08/21/2019 13:09:01 Atrial premature complex(es) no longer present Aberrant conduction of supraventricular beat(s) no longer present Right bundle-branch block no longer present Myocardial infarct finding still present Electronically Signed On 12-22-20 07:56:03 CDT by [place]
[2020-12-22] MEDS: BUDESONIDE 0.25 MG/2 ML NEB NEB SCH ×2 (08:00→20:00)
[2020-12-22] MEDS ORDERED: METOPROLOL TAR 25 MG TAB ONE (08:05)
[2020-12-22] MEDS ORDERED: ENOXAPARIN 30 MG/0.3 ML SQ ONE (08:36)
[2020-12-22 08:59] LABS: Platelet Estimate ADEQ
[2020-12-22] MEDS ORDERED: ALBUTEROL 2.5 MG/3 ML NEB SOL ONE (08:59)
[2020-12-22] MEDS ORDERED: IPRATROPIUM BROM 0.5MG/2.5ML ONE (08:59)
[2020-12-22 09:00] LABS: Blood Morphology Comment NOT SEEN (NOT SEEN)
[2020-12-22] MEDS: AMLODIPINE 2.5 MG TAB PO SCH (09:00)
[2020-12-22] MEDS: METOPROLOL TAR 25 MG TAB PO SCH ×2 (09:00→22:10)
[2020-12-22] MEDS: MONTELUKAST 10 MG TAB PO SCH (09:00)
[2020-12-22] MEDS: buPROPion HCL 100 MG TAB PO SCH (09:00)
[2020-12-22] MEDS: ALBUTEROL 2.5 MG/3 ML NEB SOL NEB SCH ×3 (09:22→20:00)
[2020-12-22] MEDS: IPRATROPIUM BROM 0.5MG/2.5ML NEB SCH ×3 (09:22→20:10)
[2020-12-22] MEDS: ACETAMINOPHEN 500 MG TAB PO PRN ×2 (09:51→17:42)
[2020-12-22] MEDS ORDERED: PNEUMOCOCCAL VACCINE 0.5 ML IMVAC ONE (10:00)
[2020-12-22] MEDS ORDERED: ACETAMINOPHEN 325 MG TABLET ONE (10:10)
--- NOTE | 2020-12-22 11:04 | HP ---
Date of Admission: 12/21/2020 Chief Complaint: Cough, congestion, shortness of breath. History Of Present Illness: Ms. Madsen is a pleasant 80-year-old female patient, who came into the e mergency room with 2-3 days' history of cough, congestion, shortness of breath and coughing up some c olored mucus. She called office with this complaint and was advised to come to emergency room. Afte r she was evaluated, she was admitted to the hospital with pneumonia and acute exacerbation of COPD. The patient gets short of breath with any activity including walking and at rest and while talking s he is using some muscles of respiration. Denies any hemoptysis. Allergies: NO KNOWN ALLERGIES. Medications: List reviewed and her home medication list includes atorvastatin 20 mg daily, albuterol inhaler 2 puffs 4 times a day as needed, albuterol and Atrovent nebulizer treatment 4 times a day as needed, Fosamax 70 mg once a week, amlodipine 5 mg daily in the morning, aspirin 81 mg daily, buprop ion 75 mg daily, buspirone 5 mg 2 times a day as needed for anxiety, donepezil 5 mg p.o. daily, Trele gy inhaler 1 puff by mouth daily, metoprolol 25 mg p.o. and she takes half a tablet 2 times a day, mo ntelukast 10 mg daily, Requip 0.25 mg at bedtime. Review of Systems: Respiratory: As mentioned above. All other systems reviewed and negative. Past Medical History: Significant for allergic rhinitis, hypertension, COPD, hyperlipidemia, had COV ID-19 infection in February 12, 2020. 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 Diverticulosis, osteoporosis , hyponatremia. Past Surgical History: Tonsillectomy, appendectomy, hysterectomy, carpal tunnel release from right h and. Social History: The patient currently smokes daily, use of alcohol occasional. Family History: Brother had coronary artery disease and DC. Mother had stroke. Brother also had Al zheimer disease. Physical Examination: Vital Signs: Temperature 97.1, pulse 87, respiratory rate 24, blood pressure 92/51, oxygen saturatio n 95%. Height 5 feet 5 inches and weight 112 pounds. General: The patient is awake, alert, oriented, in mild respiratory distress at rest and also while talking to me with use of accessory muscles of respiration. HEENT: Head atraumatic, normocephalic. Conjunctivae nonerythematous. Sclerae white. Mouth, no thr ush or edema noted. Ears/Nose, no mass, lesion, discharge noted. Neck: Supple. No JVD, lymph nodes, bruit, thyromegaly noted. Lungs: Diminished air entry in the left lower lung. Heart: Normal heart sounds, no murmur or gallop. Abdomen: Soft, bowel sounds normal. No guarding, rigidity, tenderness, mass, hepatosplenomegaly, dis tention, or bruit noted. Extremities: No leg edema. No calf tenderness. Skin: No rash, ulcer, cellulitis. Lymphatics: No lymph node enlargement in neck, supraclavicular, infraclavicular region. Neuro: No focal neurological deficit. Chest: Unremarkable. External Genitalia: Deferred. Rectal: Deferred. Laboratory Data: White count 23.5, hemoglobin 10.4, platelets 256. D-dimer 719. Sodium 136, potass ium 3.7, chloride 100, bicarb 30, BUN 17, creatinine 0.56, glucose 155. Liver function tests unremar kable. Urinalysis unremarkable. COVID-19 test negative. Procalcitonin 0.94, CRP 148. Chest x-ray shows left-sided pneumonia. CAT scan of the chest per PE protocol negative for pulmonary embolism, b ut does show infiltrate in the left lower lobe. Impression: 1.Pneumonia. 2.Acute exacerbation of chronic obstructive pulmonary disease. 3.Anemia, unspecified. 4.Hypertension. 5.Hyperlipidemia. 6.Diverticulosis. 7.Osteoporosis. Plan: Admit the patient to hospital for further evaluation and management of this problem. The judi ent is appropriate for inpatient and is expected to spend 2 midnights in the hospital. We will go ah ead and continue home medications per order. We will give empiric antibiotic which is Levaquin, star t the patient on IV steroid. Nebulizer treatment will be given per order. Give supplemental oxygen. DVT prophylaxis using Lovenox will be given. Details and plan of treatment discussed with her and I will see her tomorrow for followup. I also discussed with her regarding code status and the patien t is full code as per my discussion with her. YOSVANY/MODL Voice ID: [id number]
[2020-12-22] MEDS: ENOXAPARIN 30 MG/0.3 ML SQ SCH (16:48)
[2020-12-22] MEDS ORDERED: ENOXAPARIN 40 MG/0.4 ML SQ SCH (17:00)
[2020-12-22] MEDS: ROPINIROLE HCL 0.25 MG TAB PO SCH (21:00)
[2020-12-22] MEDS: DONEPEZIL HCL 5 MG TAB PO SCH (21:00)
[2020-12-23] MEDS: METHYLPREDNISOLONE 40 MG INJ IV SCH ×3 (00:44→16:59)
[2020-12-23] MEDS: ALBUTEROL 2.5 MG/3 ML NEB SOL NEB SCH ×4 (02:00→20:00)
[2020-12-23] MEDS: IPRATROPIUM BROM 0.5MG/2.5ML NEB SCH ×4 (02:00→20:00)
[2020-12-23 06:17] LABS: Absolute Lymphocytes (CBC) 0.3 K/uL (0.7-4.9); Basophils % 0.1 % (0-1.3); Hematocrit 33.7 % (36.0-45.0); Lymphocytes % 1.5 % (15.3-44.8); MPV 8.2 fL (7.6-11.3); RBC Red Blood Cell Count 3.65 M/uL (3.86-4.86)
[2020-12-23] MEDS: Levofloxacin500mg IV 500 MG/100 ML BAG IV SCH (06:17)
[2020-12-23] MEDS: ACETAMINOPHEN 500 MG TAB PO PRN (06:23)
[2020-12-23 06:27] LABS: BUN Blood Urea Nitrogen 14 mg/dL (7-18); Bicarbonate 34 mmol/L (21-32); Glucose Level 137 mg/dL (74-106); Magnesium 2.3 mg/dL (1.8-2.4); Potassium 3.7 mmol/L (3.5-5.1); Sodium Level 139 mmol/L (136-145)
--- NOTE | 2020-12-23 07:18 | RAD REPORT ---
EXAM DESCRIPTION: RAD - Chest Single View - 12/23/2020 5:49 am CLINICAL HISTORY: pneumonia COMPARISON: Chest Single View dated 12/21/2020; Chest Single View dated 08/21/2019; Chest Pa And Lat (2 Views) dated 06/13/2019; Chest Single View dated 06/11/2019 FINDINGS: Increasing consolidation in the left lung base. Heart size is similar. Atherosclerosis. Ba ckground emphysema. No fractures are seen. IMPRESSION: Worsening left basilar consolidation which remains concerning for pneumonia.
[2020-12-23] MEDS ORDERED: TRAMADOL HCL 50 MG TAB PO PRN (07:27)
[2020-12-23] MEDS: BUDESONIDE 0.25 MG/2 ML NEB NEB SCH ×2 (08:00→20:00)
[2020-12-23] MEDS: buPROPion HCL 100 MG TAB PO SCH (09:42)
[2020-12-23] MEDS: AMLODIPINE 2.5 MG TAB PO SCH (09:43)
[2020-12-23] MEDS: MONTELUKAST 10 MG TAB PO SCH (09:43)
[2020-12-23] MEDS: LIDOCAINE 4% PATCH TOP SCH (09:44)
[2020-12-23] MEDS: METOPROLOL TAR 25 MG TAB PO SCH ×2 (09:44→20:50)
[2020-12-23] MEDS: PIPER/TAZO/NS 3.375gm 3.375 GM/100 ML BAG IVPB SCH ×2 (09:45→16:58)
--- NOTE | 2020-12-23 10:51 | PN ---
Date of Progress Note: 12/22/2020 Subjective: The patient was seen this morning for followup. No new complaints or problems reported by the patient. She was lying in bed, not in distress. Denies any complaints. She was on BiPAP, wh ich was started last night and she had lot of anxiety with BiPAP, so lorazepam was ordered and she york s tolerated BiPAP very well with use of lorazepam. This morning when I saw her, she was not using an y accessory muscles of respiration, was resting well, communicating well, answering questions appropr iately. Objective: Vital Signs: Reviewed. HEENT: Unremarkable. Lungs: Clear to auscultation. Bilateral good equal air entry with diminished air entry in the left lower lobe region with some rales. Heart: Sounds normal. Abdomen: Soft. Bowel sounds normal. No guarding, rigidity, tenderness, or distention. Extremities: No leg edema. Laboratory Data: White count 25.6, hemoglobin 11.6, platelets 330. Sodium 140, potassium 3.9, chlor sancho 105, bicarb 30, BUN 11, creatinine 0.50, glucose 151. Impression: 1.Pneumonia. 2.Acute exacerbation of chronic obstructive pulmonary disease. 3.Acute respiratory failure with hypoxia and hypercapnia. Plan: We will go ahead and continue home oxygen replacement therapy. Continue current nebulizer hannah atment, steroids, which is Solu-Medrol and IV antibiotics. We will repeat blood work, chest x-ray to favio. Continue DVT prophylaxis with Lovenox per order and continue home medications per order. YOSVANY/MODL Voice ID: [id number] Report ID: [id number]
[2020-12-23] MEDS: ENOXAPARIN 30 MG/0.3 ML SQ SCH (16:58)
--- NOTE | 2020-12-23 18:48 | PN ---
Date of Progress Note: 12/23/2020 Subjective: The patient was seen this morning for followup. No new complaints or problems reported. She was lying in the bed. Her daughter was with her at bedside. Objective: Vital Signs: Reviewed. She was on nasal cannula oxygen when I saw her this morning. Sh e did use BiPAP last night. HEENT: Unremarkable. Lungs: Bilateral good equal air entry. No wheezing, but diminished air entry with some rales in the left lower lung, unchanged from yesterday. The patient is not using any accessory muscles of respir ation at rest, but when she talks, she does use some accessory muscles of respiration at the time. Heart: Sounds normal. Abdomen: Soft. Bowel sounds normal. No guarding, rigidity, tenderness, or distention. Extremities: No leg edema. Laboratory Data: White count 22.6, hemoglobin 11, platelets 302. Sodium 139, potassium 3.7, chlorid e 104, bicarb 34, BUN 14, creatinine 0.38, glucose 135. Chest x-ray from today shows worsening of pn eumonia. Impression: 1.Pneumonia. 2.Acute exacerbation of chronic obstructive pulmonary disease. 3.Acute respiratory failure with hypoxia and hypercapnia. Plan: We will go ahead and continue Levaquin, add Zosyn per order. We will continue current IV ster oid, oxygen. Continue current home medication, consult Physical Therapy to help ambulate the patient and I will see her tomorrow for fol lowup. YOSVANY/MODL Voice ID: [id number] Report ID: [id number]
[2020-12-23] MEDS: DONEPEZIL HCL 5 MG TAB PO SCH (20:51)
[2020-12-23] MEDS: ROPINIROLE HCL 0.25 MG TAB PO SCH (20:53)
[2020-12-24] MEDS: METHYLPREDNISOLONE 40 MG INJ IV SCH ×3 (00:07→19:10)
[2020-12-24] MEDS: PIPER/TAZO/NS 3.375gm 3.375 GM/100 ML BAG IVPB SCH ×3 (00:08→18:00)
[2020-12-24] MEDS: IPRATROPIUM BROM 0.5MG/2.5ML NEB SCH ×4 (01:20→20:55)
[2020-12-24] MEDS: ALBUTEROL 2.5 MG/3 ML NEB SOL NEB SCH ×4 (01:20→20:55)
[2020-12-24] MEDS: BUDESONIDE 0.25 MG/2 ML NEB NEB SCH ×2 (07:48→20:55)
[2020-12-24] MEDS: LIDOCAINE 4% PATCH TOP SCH (09:00)
[2020-12-24] MEDS: AMLODIPINE 2.5 MG TAB PO SCH (09:32)
[2020-12-24] MEDS: buPROPion HCL 100 MG TAB PO SCH (09:32)
[2020-12-24] MEDS: METOPROLOL TAR 25 MG TAB PO SCH ×2 (09:33→20:25)
[2020-12-24] MEDS: levoFLOXacin 500 MG TAB PO SCH (09:34)
[2020-12-24] MEDS: MONTELUKAST 10 MG TAB PO SCH (09:34)
[2020-12-24] MEDS: ENOXAPARIN 30 MG/0.3 ML SQ SCH (19:09)
[2020-12-24] MEDS: DONEPEZIL HCL 5 MG TAB PO SCH (20:25)
[2020-12-24] MEDS: ROPINIROLE HCL 0.25 MG TAB PO SCH (20:26)
--- NOTE | 2020-12-24 23:42 | PN ---
Date of Progress Note: 12/24/2020 Subjective: The patient was seen this morning for followup. She was lying in bed, not in distress. Denies any new complaints. She was on nasal cannula oxygen this morning. She did use BiPAP last ni ght. Objective: Vital Signs: Reviewed. HEENT: Unremarkable. Lungs: Clear to auscultation except diminished air entry in the left lung base. Heart: Sounds normal. Abdomen: Soft. Bowel sounds normal. No guarding, rigidity, tenderness, distention. Extremities: No leg edema. Impression: 1.Pneumonia. 2.Acute respiratory failure with hypercapnia and hypoxia. 3.Acute exacerbation of chronic obstructive pulmonary disease. Plan: We will continue current medication. Continue steroid, antibiotics, and oxygen nebulizer judy tment. We will repeat blood work and chest x-ray tomorrow morning. The patient to continue to work with physical therapy. YOSVANY/MODL Voice ID: [id number] Report ID: [id number]
[2020-12-25] MEDS: PIPER/TAZO/NS 3.375gm 3.375 GM/100 ML BAG IVPB SCH ×3 (00:13→18:40)
[2020-12-25] MEDS: METHYLPREDNISOLONE 40 MG INJ IV SCH ×3 (00:14→18:48)
[2020-12-25] MEDS ORDERED: NA CHLORIDE 0.9% 250 ML ONE (00:35)
[2020-12-25] MEDS: ALBUTEROL 2.5 MG/3 ML NEB SOL NEB SCH ×4 (02:25→20:32)
[2020-12-25] MEDS: IPRATROPIUM BROM 0.5MG/2.5ML NEB SCH ×4 (02:25→20:32)
[2020-12-25 06:22] LABS: Absolute Lymphocytes (CBC) 0.6 K/uL (0.7-4.9); Basophils % 0.1 % (0-1.3); Hematocrit 32.4 % (36.0-45.0); Lymphocytes % 3.2 % (15.3-44.8); MPV 7.5 fL (7.6-11.3); RBC Red Blood Cell Count 3.55 M/uL (3.86-4.86)
[2020-12-25 06:39] LABS: BUN Blood Urea Nitrogen 17 mg/dL (7-18); Bicarbonate 37 mmol/L (21-32); Glucose Level 161 mg/dL (74-106); Magnesium 2.3 mg/dL (1.8-2.4); Potassium 3.1 mmol/L (3.5-5.1); Sodium Level 140 mmol/L (136-145)
[2020-12-25] MEDS: BUDESONIDE 0.25 MG/2 ML NEB NEB SCH ×2 (09:10→20:32)
[2020-12-25] MEDS: AMLODIPINE 2.5 MG TAB PO SCH (09:23)
[2020-12-25] MEDS: buPROPion HCL 100 MG TAB PO SCH (09:23)
[2020-12-25] MEDS: MONTELUKAST 10 MG TAB PO SCH (09:24)
[2020-12-25] MEDS: levoFLOXacin 500 MG TAB PO SCH (09:24)
[2020-12-25] MEDS: METOPROLOL TAR 25 MG TAB PO SCH ×2 (09:24→22:50)
--- NOTE | 2020-12-25 09:32 | RAD REPORT ---
EXAM DESCRIPTION: RAD - Chest Pa And Lat (2 Views) - 12/25/2020 8:22 am CLINICAL HISTORY: pneumonia Chest pain. COMPARISON: Chest Single View dated 12/23/2020; Chest Single View dated 12/21/2020; Chest Single View d ated 08/21/2019; Chest Pa And Lat (2 Views) dated 06/13/2019 FINDINGS: Prominent emphysema is present. Ill-defined left basilar consolidation has mildly improved since comparative study dated 12/23/2020. The heart is normal in size. No displaced fractures. IMPRESSION: Emphysematous changes with mild improvement in left basilar infiltrate/consolidation sin ce 12/23/2020.
[2020-12-25] MEDS: LIDOCAINE 4% PATCH TOP SCH (13:45)
[2020-12-25] MEDS: ENOXAPARIN 30 MG/0.3 ML SQ SCH (18:47)
--- NOTE | 2020-12-25 20:05 | PN ---
Date of Progress Note: 12/25/2020 Subjective: The patient was seen this morning for followup. No new complaints or problems reported by her. Lying in bed, not in distress. Objective: Vital Signs: Reviewed. HEENT: Unremarkable. Lungs: Bilateral good equal air entry. Improved air entry in the left lung base. Some minimal crac kles present, but overall air entry has improved. Not in any respiratory distress. Heart: Sounds normal. Abdomen: Soft. Bowel sounds normal. No guarding, rigidity, tenderness, or distention. Extremities: No leg edema. Laboratory Data: White count 19.8, hemoglobin 10.7, platelets . Sodium 140, potassium 3.1 , chloride 100, bicarb 37, BUN 17, creatinine 0.54, glucose 161, magnesium . Plan: We will continue current medication. Replace potassium per electrolyte replacement protocol. Continue current antibiotic, IV steroid, oxygen nebulizer treatment. As per the patient's request, I did call her daughter and updates given. Details were discussed with her. YOSVANY/MODL Voice ID: [id number] Report ID: [id number]
[2020-12-25] MEDS: ROPINIROLE HCL 0.25 MG TAB PO SCH (21:00)
[2020-12-25] MEDS: DONEPEZIL HCL 5 MG TAB PO SCH (22:50)
[2020-12-26] MEDS: PIPER/TAZO/NS 3.375gm 3.375 GM/100 ML BAG IVPB SCH ×3 (01:53→17:36)
[2020-12-26] MEDS: METHYLPREDNISOLONE 40 MG INJ IV SCH ×2 (01:53→09:00)
[2020-12-26] MEDS: IPRATROPIUM BROM 0.5MG/2.5ML NEB SCH ×4 (03:35→20:00)
[2020-12-26] MEDS: ALBUTEROL 2.5 MG/3 ML NEB SOL NEB SCH ×4 (03:35→20:00)
[2020-12-26 08:19] LABS: BUN Blood Urea Nitrogen 15 mg/dL (7-18); Bicarbonate 40 mmol/L (21-32); Glucose Level 106 mg/dL (74-106); Potassium 3.3 mmol/L (3.5-5.1); Sodium Level 139 mmol/L (136-145)
[2020-12-26] MEDS ORDERED: predniSONE 20 MG TAB PO ONE (09:16)
[2020-12-26] MEDS: BUDESONIDE 0.25 MG/2 ML NEB NEB SCH ×2 (09:47→20:00)
[2020-12-26] MEDS: LIDOCAINE 4% PATCH TOP SCH (10:16)
[2020-12-26] MEDS: AMLODIPINE 2.5 MG TAB PO SCH (10:16)
[2020-12-26] MEDS: levoFLOXacin 500 MG TAB PO SCH (10:17)
[2020-12-26] MEDS: MONTELUKAST 10 MG TAB PO SCH (10:17)
[2020-12-26] MEDS: METOPROLOL TAR 25 MG TAB PO SCH ×2 (10:17→20:47)
[2020-12-26] MEDS: buPROPion HCL 100 MG TAB PO SCH (10:18)
--- NOTE | 2020-12-26 10:57 | PN ---
Date of Progress Note: 12/26/2020 Subjective: The patient was seen this morning for followup. She was sitting in bed. Denied any com plaints. On nasal cannula oxygen at 8 L/minute and reports that overall she feels better compared to before. Her left-sided pleuritic chest pain has improved to the extent that she does not have any p ain now. Objective: Vital Signs: Reviewed. HEENT: Examination unremarkable. Lungs: Bilateral good equal air entry. Clear to auscultation. No rales. No wheezing. Heart: Not in any respiratory distress. Heart sounds normal. Abdomen: Soft. Bowel sounds normal. No guarding, rigidity, tenderness, or distention. Extremities: No leg edema. Laboratory Data: Sodium 139, potassium 3.3, chloride 98, bicarb 40, BUN 15, creatinine 0.44, glucose 106. Impression: 1.Pneumonia. 2.Acute respiratory failure with hypoxia and hypercapnia. 3.Acute exacerbation of chronic obstructive pulmonary disease. 4.Hypokalemia. Plan: We will continue current medications. Continue current oxygen nebulizer treatment. She is on IV steroid. We will change it to oral prednisone 20 mg twice a day. Continue current IV antibiotic s which is Zosyn and Levaquin. We will repeat blood work and chest x-ray tomorrow and considering he r increasing bicarb and higher oxygen requirement, we will repeat another arterial blood gas today an d then make decision regarding BiPAP use. Respiratory therapist to try to cut down on oxygen use if possible. Replace potassium per electrolyte replacement protocol. YOSVANY/MODL Voice ID: [id number] Report ID: [id number]
[2020-12-26 13:04] LABS: Arterial Blood Carboxyhemoglob 0.9 % (0-1.5); Blood Gas Oxyhemoglobin 93.3 % (94-97)
[2020-12-26] MEDS: ENOXAPARIN 30 MG/0.3 ML SQ SCH (17:35)
[2020-12-26] MEDS: LORazepam 2 MG/ML VIAL IV PRN (17:58)
[2020-12-26] MEDS: DONEPEZIL HCL 5 MG TAB PO SCH (20:46)
[2020-12-26] MEDS: ROPINIROLE HCL 0.25 MG TAB PO SCH (20:47)
[2020-12-26] MEDS: predniSONE 20 MG TAB PO SCH (20:48)
[2020-12-27] MEDS: PIPER/TAZO/NS 3.375gm 3.375 GM/100 ML BAG IVPB SCH ×3 (00:05→16:53)
[2020-12-27] MEDS: IPRATROPIUM BROM 0.5MG/2.5ML NEB SCH ×4 (02:00→19:40)
[2020-12-27] MEDS: ALBUTEROL 2.5 MG/3 ML NEB SOL NEB SCH ×4 (02:00→19:40)
[2020-12-27 06:04] LABS: Basophils % 0.2 % (0-1.3); Hematocrit 35.4 % (36.0-45.0); Lymphocytes % 5.5 % (15.3-44.8); MPV 7.3 fL (7.6-11.3); RBC Red Blood Cell Count 3.88 M/uL (3.86-4.86)
[2020-12-27 06:13] LABS: BUN Blood Urea Nitrogen 14 mg/dL (7-18); Bicarbonate 40 mmol/L (21-32); Glucose Level 131 mg/dL (74-106); Magnesium 2.1 mg/dL (1.8-2.4); Potassium 3.4 mmol/L (3.5-5.1); Sodium Level 138 mmol/L (136-145)
[2020-12-27 06:49] LABS: Blood Morphology Comment NOT SEEN (NOT SEEN); Platelet Estimate ADEQ; White Blood Cell Scan OK (OK)
[2020-12-27] MEDS: BUDESONIDE 0.25 MG/2 ML NEB NEB SCH ×2 (08:35→19:40)
[2020-12-27] MEDS: LORazepam 2 MG/ML VIAL IV PRN ×2 (09:47→16:51)
[2020-12-27] MEDS: LIDOCAINE 4% PATCH TOP SCH (09:48)
[2020-12-27] MEDS: AMLODIPINE 2.5 MG TAB PO SCH (09:48)
[2020-12-27] MEDS: predniSONE 20 MG TAB PO SCH ×2 (09:49→21:59)
[2020-12-27] MEDS: MONTELUKAST 10 MG TAB PO SCH (09:49)
[2020-12-27] MEDS: levoFLOXacin 500 MG TAB PO SCH (09:49)
[2020-12-27] MEDS: buPROPion HCL 100 MG TAB PO SCH (09:49)
[2020-12-27] MEDS: METOPROLOL TAR 25 MG TAB PO SCH ×2 (09:49→21:59)
--- NOTE | 2020-12-27 11:27 | RAD REPORT ---
EXAM DESCRIPTION: RAD - Chest Pa And Lat (2 Views) - 12/27/2020 10:35 am CLINICAL HISTORY: pneumonia COMPARISON: Chest Pa And Lat (2 Views) dated 12/25/2020; Chest Single View dated 12/23/2020; Chest Sin gle View dated 12/21/2020; Chest Single View dated 08/21/2019; Chest For Pe Angio dated 12/21/2020 FINDINGS: Partially consolidative airspace disease in left lower lobe with irregular opacities with mild improvement compared with 12/25/2020. Emphysema. The heart size is normal.No acute osseous abnor mality. No pneumothorax per IMPRESSION: Mild improved aeration of the left lung base consistent with improving pneumonia. Emphys yolie.
--- NOTE | 2020-12-27 12:37 | PN ---
Date of Progress Note: 12/27/2020 Subjective: The patient was seen this morning for followup. No new complaints or problems reported by her. She was lying in bed, on nasal cannula oxygen at 3 L/minute today. Since I visited her afte r I saw her, nurse was advised to go ahead and start the patient on BiPAP, as blood gas was done and she was on 8 to 10 L nasal cannula oxygen. So, BiPAP was started and with the use of BiPAP now, she is only down to 3 L nasal cannula oxygen. She is tolerating BiPAP very well, but she does require so me anxiety medication, Ativan, while using BiPAP. Denies any new complaints this morning. She looks little tired today compared to yesterday. Objective: Vital Signs: Reviewed. HEENT: Examination unremarkable. Lungs: Bilateral good equal entry, presence of some basal rales not ed. Not using any accessory muscles of respiration. Cardiac: Heart sounds normal. Abdomen: Soft, bowel sounds normal. No guarding, rigidity, tenderness, or distention. Extremities: No leg edema. Laboratory Data: White count 18, hemoglobin 11.7, platelets 290. Sodium 138, potassium 3.4, chlorid e 96, bicarb 40, BUN 14, creatinine 0.46, glucose 131, magnesium 2.1. Impression: 1.Pneumonia. 2.Acute respiratory failure with hypoxia and hypercapnia. 3.Acute exacerbation of chronic obstructive pulmonary disease. 4.Anemia, unspecified. 5.Hypokalemia. Plan: We will continue current medication. Replace electrolytes per protocol. Continue current ant ibiotic, steroid, oxygen nebulizer treatment and the patient was advised to continue to use her BiPAP all the time except she may take it off during mealtime. We will continue Ativan on a p.r.n. basis. I will see her tomorrow for followup. Chest x-ray was done today. We delfin rouse follow up results. YOSVANY/MODL Voice ID: [id number] Report ID: [id number]
[2020-12-27] MEDS: ENOXAPARIN 30 MG/0.3 ML SQ SCH (16:51)
[2020-12-27] MEDS: ROPINIROLE HCL 0.25 MG TAB PO SCH (21:00)
[2020-12-27] MEDS: DONEPEZIL HCL 5 MG TAB PO SCH (21:59)
[2020-12-28] MEDS: PIPER/TAZO/NS 3.375gm 3.375 GM/100 ML BAG IVPB SCH ×3 (00:10→17:53)
[2020-12-28] MEDS: ALBUTEROL 2.5 MG/3 ML NEB SOL NEB SCH ×4 (01:54→19:40)
[2020-12-28] MEDS: IPRATROPIUM BROM 0.5MG/2.5ML NEB SCH ×4 (01:54→19:40)
[2020-12-28] MEDS ORDERED: POTASSIUM CL SA 10 MEQ TAB PO ONE (06:48)
[2020-12-28] MEDS ORDERED: LOPERAMIDE HCL 2 MG CAPSULE PO PRN (06:48)
[2020-12-28] MEDS: BUDESONIDE 0.25 MG/2 ML NEB NEB SCH ×2 (08:55→19:40)
[2020-12-28] MEDS: levoFLOXacin 500 MG TAB PO SCH (09:33)
[2020-12-28] MEDS: LIDOCAINE 4% PATCH TOP SCH (09:33)
[2020-12-28] MEDS: buPROPion HCL 100 MG TAB PO SCH (09:34)
[2020-12-28] MEDS: predniSONE 20 MG TAB PO SCH ×2 (09:34→20:50)
[2020-12-28] MEDS: METOPROLOL TAR 25 MG TAB PO SCH ×2 (09:34→20:52)
[2020-12-28] MEDS: MONTELUKAST 10 MG TAB PO SCH (09:35)
[2020-12-28] MEDS: AMLODIPINE 2.5 MG TAB PO SCH (09:35)
[2020-12-28] MEDS: LORazepam 2 MG/ML VIAL IV PRN ×2 (09:42→18:18)
[2020-12-28] MEDS: ENOXAPARIN 30 MG/0.3 ML SQ SCH (17:54)
[2020-12-28] MEDS: DONEPEZIL HCL 5 MG TAB PO SCH (20:50)
[2020-12-28] MEDS: ROPINIROLE HCL 0.25 MG TAB PO SCH (20:51)
[2020-12-29] MEDS: PIPER/TAZO/NS 3.375gm 3.375 GM/100 ML BAG IVPB SCH ×2 (01:06→09:00)
[2020-12-29] MEDS: ALBUTEROL 2.5 MG/3 ML NEB SOL NEB SCH ×3 (01:25→13:20)
[2020-12-29] MEDS: IPRATROPIUM BROM 0.5MG/2.5ML NEB SCH ×3 (01:25→13:20)
--- NOTE | 2020-12-29 02:36 | PN ---
Date of Progress Note: 12/28/2020 Subjective: The patient was seen this morning for followup. No new complaints or problems reported by patient. Lying in bed, not in distress. Objective: Vital Signs: Reviewed. HEENT: Examination unremarkable. Lungs: Clear to auscultation. Cardiac: Heart sounds normal. Abdomen: Soft, bowel sounds normal. No guarding, rigidity, tenderness, or distention. Extremities: No leg edema. Impression: 1.Acute respiratory failure with hypoxia and hypercapnia. 2.Acute exacerbation of chronic obstructive pulmonary disease. 3.Pneumonia. Plan: We will continue . The patient's last chest x-ray from yesterday shows improvement in pneumonia. We will continue current steroid, antibiotic, oxygen, and nebulizer treatment. Dave rouse consult inpatient rehab. This morning when I saw her, she was still on about 3-1/2 to 4 L nasal ca nnula oxygen. She was encouraged to use her BiPAP. YOSVANY/MODL Voice ID: [id number] Report ID: [id number]
[2020-12-29 05:40] LABS: Absolute Lymphocytes (CBC) 0.9 K/uL (0.7-4.9); Basophils % 0.2 % (0-1.3); Hematocrit 35.7 % (36.0-45.0); RBC Red Blood Cell Count 3.89 M/uL (3.86-4.86)
[2020-12-29 06:01] LABS: BUN Blood Urea Nitrogen 20 mg/dL (7-18); Bicarbonate 37 mmol/L (21-32); Glucose Level 142 mg/dL (74-106); Magnesium 2.1 mg/dL (1.8-2.4); Potassium 4.2 mmol/L (3.5-5.1); Sodium Level 137 mmol/L (136-145)
[2020-12-29] MEDS: BUDESONIDE 0.25 MG/2 ML NEB NEB SCH (07:41)
[2020-12-29] MEDS: levoFLOXacin 500 MG TAB PO SCH (09:06)
[2020-12-29] MEDS: MONTELUKAST 10 MG TAB PO SCH (09:06)
[2020-12-29] MEDS: predniSONE 20 MG TAB PO SCH (09:06)
[2020-12-29] MEDS: buPROPion HCL 100 MG TAB PO SCH (09:06)
[2020-12-29] MEDS: METOPROLOL TAR 25 MG TAB PO SCH (09:06)
[2020-12-29] MEDS: LIDOCAINE 4% PATCH TOP SCH (09:07)
[2020-12-29] MEDS: AMLODIPINE 2.5 MG TAB PO SCH (09:09)
[2020-12-29 12:41] VITALS: BP 132/77; TEMP 97.4
[2020-12-29 16:00] VITALS: O2SAT 91
--- NOTE | 2020-12-30 19:42 | DS ---
Date of Discharge: 12/29/2020 Disposition: Discharged to go to rehab floor. Physical Examination: HEENT: Unremarkable. Lungs: Clear to auscultation. Heart: Sounds normal. Abdomen: Soft. Bowel sounds normal. No guarding, rigidity, tenderness, or distention. Extremities: No leg edema. Laboratory Data: Last CBC today; white count 18.4, hemoglobin 11.6, platelets 340. Upon admission; white count 22.3, hemoglobin 10.4, platelets 256. Highest WBC was 25.6 on 12/22/2020 and lowest hemo globin was 10.4 upon admission. Her last chemistry today; sodium 137, potassium 4.2, chloride 99, bi carb 37, BUN 20, creatinine 0.52, glucose 142, magnesium 2.1. Hospital Course: This is a 80-year-old female patient, who was admitted to the hospital with shortne ss of breath problem. Please see dictated H and P for more information. After the patient was evalu ated in the emergency room, she was admitted to the hospital with pneumonia and acute exacerbation of COPD. Her COVID-19 test was negative and the patient was started on empiric antibiotic, IV steroid, IV antibiotics, oxygen and nebulizer treatment. Home medications were continued. The patient did h ave acute respiratory failure with hypoxia and hypercapnia requiring BiPAP use and she responded well to that as well. She developed significant generalized weakness. Physical Therapy was consulted an d then subsequently we also consulted Inpatient Rehab. Serial chest x-ray done showing improvement i n pneumonia. Initially, she was on Levaquin and subsequently, we added Zosyn. She did develop some diarrhea, responded well to Imodium. At some point, she required high level of oxygen use as high as 10 L/minute, but once we started using BiPAP, we were able to reduce her oxygen use down to 3 to 3.5 L/minute. The patient was discharged to go to rehab floor today in stable condition. Final Diagnoses: 1.Pneumonia. 2.Acute exacerbation of chronic obstructive pulmonary disease. 3.Chronic respiratory failure, with hypoxia, with hypercapnia, with acute exacerbation. 4.Anemia, unspecified. 5.Hypokalemia. Discharge Medications And Instructions: Please continue all current medications and see copy of morgan sfer order for details. YOSVANY/MODL Voice ID: [id number] Report ID: [id number]
== END 2020-12-29 15:40 | DRG 190 ==
LOC: ER 14:47 → ERHOLD 17:33 → 2ND 12-22 08:56
PROVIDERS: ADMIT Internal Medicine; ATTEND Internal Medicine
PROC: 5A09457 Assistance with Respiratory Ventilation, 24-96 Consecutive Hours, Continuous Positive Airway Pressure (ICD-10-PCS; principal; 2020-12-22)
DX: J44.0 Chronic obstructive pulmonary disease with (acute) lower respiratory infection (principal); J18.9 Pneumonia, unspecified organism; J96.22 Acute and chronic respiratory failure with hypercapnia; J96.21 Acute and chronic respiratory failure with hypoxia; J44.1 Chronic obstructive pulmonary disease with (acute) exacerbation; D64.9 Anemia, unspecified; E87.6 Hypokalemia; F41.9 Anxiety disorder, unspecified; I10 Essential (primary) hypertension; F17.210 Nicotine dependence, cigarettes, uncomplicated; K57.90 Diverticulosis of intestine, part unspecified, without perforation or abscess without bleeding; M81.0 Age-related osteoporosis without current pathological fracture; Z20.822 Contact with and (suspected) exposure to COVID-19
CPT/HCPCS: 36415; 71045; 71046; 71275; 80048; 80076; 81003; 81015; 82728; 82805; 83605; 83690; 83735; 83880; 84145; 84484; 85025; 85379; 85610; 85730; 86140; 87040; 87804; 93005; 94660; 94760; 96365; 96375; 97110; 97116; 97161; 97530; 99285; J0456; J0460; J0696; J1650; J2543; J2920; J7030; J7050; J7512; Q9967; U0003

== ENCOUNTER 2020-12-29 10:00 | Inpatient (IN) | payer OTHER ==
--- NOTE | 2020-12-29 14:34 | R.PREADM ---
PRE-ADMISSION SCREENING FORM SCREENING DATE AND TIME 12/29/2020 10:52 (CDT) ANTICIPATED REHAB ADMISSION DATE 12/31/2020 REFERRING FACILITY [facility] REFERRAL DATE AND TIME 12/29/2020 10:52 (CDT) REFERRAL ROOM# 210 ACUTE ADMIT DATE 12/21/2020 Previous Rehabilitation(s): No. ACUTE DIRECTOR MEETINGS/DC PI/SENIOR RESEARCH ASSOCIATE Lilly Chatterjee ATTENDING PHYSICIAN Dr. Jose Kitchen REFERRING PHYSICIAN Dr. Jose Kitchen REHAB FACILITY [facility] CLINICAL LIAISON Uli Hernandez PHYSICIAN REVIEWER Dr. Stephen Conti M.D. MR# [id number] NAME KAYLIE ARTHUR ADDRESS [address] [facility] [address] [place] [address] PHONE [facility] [id number] DATE OF 1940 AGE 80 SSN# [id number] GENDER female MARITAL STATUS RACE unknown race ADMIT FROM 02 - [facility] PRE-HOSPITAL LIVING SETTING 01 - Home (private home/apt. board/care, assisted living, fci, transitional living) HOME TYPE AND DETAILS Type of home: apartment # of levels in the residence: 1 # of steps within the residence: 0 # of steps to enter the residence: 1 Pt. lives at [facility]. She is independent and ambulatory at home. Pt. [place] s home oxygen that she uses 24/7 on 4L/min.has a tub that she gets in to bathe. PRE-HOSPITAL LIVING WITH Family/Relatives FAMILY SUPPORT Yes PRIMARY FAMILY CONTACT NAME Andrew Forrest PRIMARY FAMILY CONTACT PHONE PRIMARY FAMILY CONTACT RELATIONSHIP Daughter PHONE PRIMARY FAMILY CONTACT ON ADM.? no IS PRIMARY FAMILY CONTACT AUTH. REP.? no 1ST EMERGENCY CONTACT Andrew Forrest 1ST CONTACT PHONE 1ST CONTACT RELATIONSHIP Daughter PHONE 1ST CONTACT ON ADM. no IS 1ST CONTACT AUTH. REP.? no PHONE 2ND CONTACT ON ADM.? no PATIENT EMPLOYMENT STATUS Retired (for age) PATIENT EMPLOYER No Employer PAYOR INFORMATION: 1ST PAYOR NAME Medicare 1ST PAYOR PHONE 1ST PAYOR INJURY/ILLNESS DUE TO ACCIDENT? No ANOTHER GREEN PARTY RESPONSIBLE? No PRIMARY REHAB/ACUTE DIAGNOSIS: Acute on Chronic COPD exacerbation with pneumonia and subsequent weakness REHAB IMPAIRMENT CATEGORY (FEDERICO): 15 Pulmonary does NOT meet 60% rule PRIMARY DIAGNOSIS-RELATED SURGERIES: No surgeries related to the primary diagnosis were performed. COMORBID REHAB/ACUTE DIAGNOSES: - Non-Tiered Pneumonia, unspecified organism (J18.9) RISK FOR COMPLICATIONS: - Hypertension Hypertension - COPD COPD Pneumonia - Osteoporosis Osteoporosis - Acute Respiratory failure Acute Respiratory failure SUMMARY OF ACUTE HOSPITALIZATION: Pt. is a 80 yo Right-handed female of unknown race. On 12/21/2020 she was admitted to [facility] with diagnosis Acute on Chronic CO PD exacerbation with pneumonia and subsequent weakness. Her impairment category is Pulmonary Disorders 10 - Chronic Obstructive Pulmonary Disease (10.1). Pre-morbidly, Pt. was independent/mod-I in Locomotion and Self-Care; and she had good Sphincter Contr ol, Transfers Control, and Balance. Currently, she has deficits of Locomotion, Balance, Transfers Control, Endurance, Self-Care, and Safe ty Awareness. Pt. is now referred to [facility] for acute in-patient rehabilitation in order to maximize patient's functional independence in activities of daily living, strength, ROM, and mobi lity. Patient has realistic goal of being discharged at assistance level 7-Ind to reside at Home with Fami ly/Relatives. PAST MEDICAL HISTORY Hypertension Chronic obstructive pulmonary disease with (acute) exacerbation (J44.1) Hyperlipidemia, unspecified (E78.5) COVID-19 (U07.1) Allergic rhinitis, unspecified (J30.9) atypical mycobacterial lung infection Diverticulosis Osteoporosis Hyponatremia PAST SURGICAL HISTORY: Tonsillectomy Appendectomy Hysterectomy Carpal Tunnel Release R UE MEDICATION ALLERGIES: No Known Drug Allergies (NKDA) ENVIRONMENTAL ALLERGIES: - Substance Allergies None Known - Other Allergies None Known CODE STATUS: Full code WEIGHT/HEIGHT/BMI: WEIGHT 112 lbs HEIGHT 5' 5" BMI 18.6 DIET: - Diet Type Regular - Diet - Solid Texture Regular - Diet - Liquid Texture Regular - Tube Feed N/A REVIEW OF SYSTEMS: - Gen Alert and awake Lying in bed No apparent distress Oriented to: person, time, and place - Vital Signs Temperature: 96.9 F SBP/DBP: 138/64 Pulse: 79 Resp: 16 Vital signs stable, afebrile - CVS RRR VITAL SIGNS Temperature: 96.9 F 138/64mmHg Pulse: 79 Resp: 16 Vital signs stable, afebrile 4L O2 nc MEDICATIONS/TREATMENT: Other- See attached MAR (Medication Administration Record). CURRENT SPHINCTER CONTROL: Pre-hospital bladder status: unspecified # of bladder accidents in the last 7 days prior to screenin Pre-hospital bowel status: unspecified # of bowel accidents in the last 7 days prior to screenin Last Bowel Movement Date: 12/29/2020 CURRENT LOCOMOTION STATUS: distance walked 270 feet using a Rolling Walker DETAILED CURRENT FUNCTIONAL STATUS: - Bladder accident frequency: 7-Ind - No accidents in the past 7 days - Bowel accident frequency: 7-Ind - No accidents in the past 7 days - Walking score based on distance walked: 0(N/A) score based on distance walked: 3(>=150ft) - Wheelchair score based on distance traveled: 0(N/A) QI SCORES: - Self-Care A. Eating 05-Setup or clean-up assistance B. Oral hygiene 05-Setup or clean-up assistance C. Toileting hygiene 04-Supervision or touching assistance E. Shower/bathe self 03-Partial/moderate assistance F. Upper body dressing 04-Supervision or touching assistance G. Lower body dressing 03-Partial/moderate assistance H. Putting on/taking off footwear 03-Partial/moderate assistance - Mobility A. Roll left and right 04-Supervision or touching assistance B. Sit to lying 04-Supervision or touching assistance C. Lying to sitting on side of bed 04-Supervision or touching assistance D. Sit to stand 04-Supervision or touching assistance E. Chair/bkk-kp-flhji transfer 04-Supervision or touching assistance F. Toilet transfer 04-Supervision or touching assistance G. Car transfer 88-Not attempted due to medical condition or safety concerns I. Walk 10 feet 04-Supervision or touching assistance J. Walk 50 feet with two turns 04-Supervision or touching assistance K. Walk 150 feet 04-Supervision or touching assistance L. Walking 10 feet on uneven surfaces 88-Not attempted due to medical condition or safety concerns M. 1 step (curb) 88-Not attempted due to medical condition or safety concerns N. 4 steps 88-Not attempted due to medical condition or safety concerns O. 12 steps 88-Not attempted due to medical condition or safety concerns P. Picking up object 88-Not attempted due to medical condition or safety concerns R. Wheel 50 feet with two turns S. Wheel 150 feet - Bladder and Bowel Bladder continence Bowel continence 9-Not rated - Endurance Fair - Balance Poor - Safety Awareness Fair CURRENT FUNC. DEFICITS: Self-Care, Mobility, Endurance, Balance, and Safety Awareness CURRENT / PREVIOUS ASSISTIVE DEVICES: Oxygen Rollator CURRENT USE ASSISTIVE DEVICES: CPAP HISTORY OF FALLS. HAS THE PATIENT HAD TWO OR MORE FALLS IN THE PAST YEAR OR ANY FALL WITH INJURY IN T HE PAST YEAR?: Unknown PRIOR SURGERY. DID THE PATIENT HAVE MAJOR SURGERY DURING THE 100 DAYS PRIOR TO ADMISSION?: No THERAPY NOTES FROM ACUTE CARE: Attached. SPECIAL NEEDS: - Safety Concerns Skin breakdown precautions needed due to skin breakdown risk PATIENT NEEDS ACTIVE AND ONGOING THERAPEUTIC INTERVENTION OF MULTIPLE THERAPY DISCIPLINES, INCLUDING: - Dietary and Nutrition Adequate Nutrition. Nutritional Education. Nutritional Supplements. - Occupational Therapy Cognitive Retraining. Visual Perceptual Training. - Speech Therapy Cognitive Training. Expressive Language Skills. Memory Strategies. Receptive Language Skills. Speech Intelligibility Training. PATIENT NEEDS CLOSE MEDICAL SUPERVISION BY A REHABILITATION PHYSICIAN FOR: Coordination of Treatment Team Medical and Co-Morbidity Management PATIENT REQUIRES 24X7 REHAB NURSING FOR MEDICAL AND FUNCTIONAL MGT. OF THE FOLLOWING DEFICITS: Disease Management Medication Management Patient/Family Education Providing Safe Environment PATIENT REQUIRES INTENSIVE, COORDINATED INTERDISCIPLINARY APPROACH TO REHAB: Arranging Home Equipment/Services Discharge Planning Family Intervention/Training Data Warehousing Manager/Case Management PATIENT REHAB POTENTIAL: Hebert ARTHUR is able and expected to receive 3 hours of individualized therapy daily on at least 5 of ev wade 7 days Hebert ARTHUR's prognosis for significant practical improvement within a reasonable period of time appear s Good Expected level of measurable improvement will be of a practical value to Hebert ARTHUR's functional capac ity or adaptations to impairments Has a viable Discharge Plan Medically appropriate; condition is sufficiently stable to participate in intensive rehab program DISCHARGE PLAN: - Estimated Length of Stay (days) 11. - Consensus on plan Discharge plan has been discussed with primary caregiver. Patient/Family is in agreement with the felice n. Primary caregiver is in agreement with the plan. - Patient/Family Goals Home to live with daughter independently. - Planned Living Setting Upon Discharge Home, to live with Family/Relatives. RECOMMENDED CARE LEVEL: IRF RECOMMENDATION DETAILS: Recommended Admission to Comprehensive Rehabilitation Program to Increase Functional [place] SCREENER'S COMPLETENESS CONFIRMATION: - Screening Confirmation The patient data collection on this preadmission screening form is finished PHYSICIANS REVIEW AND ADMISSION DETERMINATION Admit - Based on my review of the Pre-Admission Screening results, in my medical judgment and experie nce, I concur with the findings and recommend admission to [facility], as this patient requires an IRF level of care. SIGNATURE PANEL: Deputy Juvenile Officer - [electronically] signed by Uli Hernandez PT on 12/29/2020 at 13:29 (CDT) Physician Reviewer - [electronically] signed by Dr. Stephen Conti M.D. on 12/29/2020 at 14:33 (CDT )
--- OUTSIDE RECORDS SUMMARY | 2020-12-29 15:48 | XMS REPORT | Continuity of Care Document ---
:1940 Author Organization [facility] t Address [address] [place] [address] Care Team Providers Name Role Phone ANTONOFF Primary Care Physician Unavailable NICOL Attending Clinician Unavailable Payers Payer Name Policy Type Policy Number Effective Date Expiration Date S kevin MEDICARE PART A [id number] 2006 AND B 00:00:00 FOR LIFE [id number] 2016 00:00:00 Problems This patient has no known problems. Allergies, Adverse Reactions, Alerts Allergy Allergy Status Severity Reaction(s) Onset Inactive Treating Comm ents Source Name Type Date Date Clinician No Known DA Active U [facility] Allergie 05-27 Mallorie s 00:00: d 00 [facility] Medications This patient has no known medications. Vital Signs Vital Name Observation Time Observation Value Comments Source WEIGHT 2019-12-19 13:43:00 50 kg Procedures This patient has no known procedures. Encounters Start End Encounter Admission Attending Care Care Encounter Source Date/Time Date/Time Type Type Clinicians Facility Department ID 2019-12-19 2019-12-19 Outpatient TAMMIE GANN [facility], [facility] [id number] 10:48:10 23:59:00 Devyn o n 2019-12-19 2019-12-19 Outpatient TAMMIE GANN [facility], [facility] [id number] 12:26:24 14:37:46 Devyn girard 2019-12-19 2019-12-19 Outpatient TAMMIE GANN [facility] [id number] 10:47:56 10:47:56 Devyn girard Results Test Description Test Time Test Comments Results Result Comments Source SURG 2020-06-01 14:59:00 Test Item Value Reference Range Interpretation Comme nts SURG RUN (test DATE: 06/01/20 [facility] - LAB PAGE 1 RUN TIME: code = 1459 Specimen Inquiry RUN USER: INTERFACE SURG) JUSTIN NT: KAYLIE ARTHUR ACCLiane #: [id number] LOC: [place]ORDI U #: [id number] AGE/SX: 80/F ROOM: RE05/29/20[facility] DR: Yuliet Levin MD : 42 BED : DIS: STATUS: [place]: SPEC #: [id number] RECD: 05/29/20-1236 STATUS: EDY DAVIS #: [id number] MAGALI: 05/29/[address] [facility] [address]: Yuliet Levin MD ENTERED: 05/29/20 SP TYPE: CARLOS RG OTHR DR: Jose Kitchen MD ORDERED: SURG PATH LVL 4 COPIES TO: Jose Kitchen MD [address] [address] Yuliet Levin MD [address] [place] [address] HISTOLOGY: TISSUE ID BLK PCS FIORDALIZA LEV TX OCEDURE DISPOSITION ____ ___ ___ ___ RECTUM, NOS A 1 2 PROCEDURES: SURG PATH LVL 4 (05/29/20) TISSUES: A. RECTUM, NOS - RECTAL COLON BIOPSY CLINICAL HIST ORY Z86.0: HX OF POLYP CPT CODES CPT CODE(S): 14467 , , , , , , FINAL DIAGNOSIS Colon, rectum, biopsy: HYPERPLASTIC POLYP GROSS DESCRIPTION Rectal colon biopsy. Received in formalin is a ta n tissue fragment, 0.2 cm, all as A. ba/nr Grossing performed at [facility] Pathology, [address] [place] [address], [address], [place] [address]. Calender Worker Helper: Sivakumar yanez M.D. CONTINUED ON NEXT PAGE RUN DATE: 06/01/20 [facility] - [facility] PAGE 2 RUN TIME: 1459 Specimen Inquiry RUN USER: INTERFACE SPEC #: R [facility]:[id number] PATIENT: KAYLIE ARTHUR #[id number] (Continued) ------ MICROSCOPIC DESC RIPTION Rectal colon biopsy. Sections demonstrate colonic mucosa with glands demonstrating increased mucin of the stellate architecture. No hyperchromasia and nuclear crowding is present. No dysplasia or keith gnancy is seen. Signed SIGNATURE ON FILE Yazan Cerna Milly 06/01/20 1459 END OF REPORT CBC W/AUTO [id number] 06:46:00 Test Item Value Reference Range Interpretation [...] DIFF/SCN CRITERIA = MDIFF) COVID 19 INHOUSE [id number] 12:00:00 Test Item Value Reference Range Interpretation Comments COVID 19 INHOUSE AG NEGATIVE Negative Per manu facturer, (test code = negative result s should [id number]) be treated aspr esumptive and, if inconsi [...]
[2020-12-29] MEDS ORDERED: ACETAMINOPHEN 325 MG TABLET PO PRN (16:26)
[2020-12-29] MEDS ORDERED: LOPERAMIDE HCL 2 MG CAPSULE PO PRN (16:36)
[2020-12-29] MEDS ORDERED: LIDOCAINE 4% PATCH TOP SCH (17:00)
[2020-12-29] MEDS: PIPER/TAZO/NS 3.375gm 3.375 GM/100 ML BAG IVPB SCH (17:13)
[2020-12-29] MEDS: ENOXAPARIN 30 MG/0.3 ML SQ SCH (17:13)
[2020-12-29] MEDS ORDERED: LORAZEPAM 0.5 MG TABLET PO PRN (17:48)
[2020-12-29 17:53] LABS: Urine Appearance CLEAR (Clear); Urine Bilirubin NEGATIVE (Negative); Urine Blood NEGATIVE (Negative); Urine Color YELLOW (Yellow); Urine Glucose NEGATIVE (Negative); Urine Protein NEGATIVE (Negative); Urine Specific Gravity 1.015 (1.005-1.030); Urine Urobilinogen 0.2 mg/dL (0.2-1.0); Urine pH 6.5 (5.0-7.0)
[2020-12-29] MEDS ORDERED: ONDANSETRON 4 MG/2 ML VIAL IV PRN (18:09)
[2020-12-29 19:12] LABS: Urine Bacteria <20 /HPF (<20); Urine RBC NONE SEEN /HPF (NONE SEEN)
[2020-12-29] MEDS: predniSONE 20 MG TAB PO SCH (19:49)
[2020-12-29] MEDS: METOPROLOL TAR 25 MG TAB PO SCH (19:49)
[2020-12-29] MEDS: DONEPEZIL HCL 5 MG TAB PO SCH (19:50)
[2020-12-29] MEDS: ROPINIROLE HCL 0.25 MG TAB PO SCH (19:50)
[2020-12-29] MEDS ORDERED: SODIUM CHLORIDE 0.9% 10ML INJ IV SCH (20:00)
[2020-12-29] MEDS: BUDESONIDE 0.25 MG/2 ML NEB NEB SCH (20:00)
[2020-12-29] MEDS: IPRATROPIUM BROM 0.5MG/2.5ML NEB SCH (20:00)
[2020-12-29] MEDS: ALBUTEROL 2.5 MG/3 ML NEB SOL NEB SCH (20:00)
[2020-12-30] MEDS: PIPER/TAZO/NS 3.375gm 3.375 GM/100 ML BAG IVPB SCH ×3 (01:30→17:39)
[2020-12-30] MEDS: IPRATROPIUM BROM 0.5MG/2.5ML NEB SCH ×4 (02:10→20:30)
[2020-12-30] MEDS: ALBUTEROL 2.5 MG/3 ML NEB SOL NEB SCH ×4 (02:10→20:30)
[2020-12-30 06:34] LABS: Absolute Lymphocytes (CBC) 1.2 K/uL (0.7-4.9); Basophils % 0.3 % (0-1.3); Hematocrit 35.2 % (36.0-45.0); Lymphocytes % 6.1 % (15.3-44.8); MPV 6.8 fL (7.6-11.3)
[2020-12-30 06:50] LABS: Albumin 2.6 g/dL (3.4-5.0); BUN Blood Urea Nitrogen 18 mg/dL (7-18); Bicarbonate 36 mmol/L (21-32); Glucose Level 106 mg/dL (74-106); Magnesium 2.1 mg/dL (1.8-2.4); Potassium 4.5 mmol/L (3.5-5.1); Prealbumin 27.4 mg/dL (20-40); Sodium Level 135 mmol/L (136-145)
[2020-12-30] MEDS: BUDESONIDE 0.25 MG/2 ML NEB NEB SCH ×3 (08:00→21:00)
[2020-12-30] MEDS: levoFLOXacin 500 MG TAB PO SCH (08:43)
[2020-12-30] MEDS: AMLODIPINE 2.5 MG TAB PO SCH (08:44)
[2020-12-30] MEDS: predniSONE 20 MG TAB PO SCH ×2 (08:44→20:06)
[2020-12-30] MEDS: MONTELUKAST 10 MG TAB PO SCH (08:44)
[2020-12-30] MEDS: METOPROLOL TAR 25 MG TAB PO SCH ×2 (08:45→20:04)
[2020-12-30] MEDS: ENSURE ENLIVE 237 ML CAN PO SCH ×2 (08:50→17:39)
[2020-12-30] MEDS: LIDOCAINE 4% PATCH TOP SCH (08:50)
[2020-12-30 09:29] LABS: Platelet Estimate ADEQ
[2020-12-30 09:30] LABS: Blood Morphology Comment NOT SEEN (NOT SEEN)
[2020-12-30] MEDS: buPROPion HCL 100 MG TAB PO SCH (10:00)
--- NOTE | 2020-12-30 17:30 | R.HP ---
HISTORY AND PHYSICAL FACILITY: [facility] ENCOUNTER DATE AND TIME: 12/30/2020 17:24 (CDT) MR#: [id number] NAME KAYLIE ARTHUR ADDRESS: [address] [place] [address] [address] [facility] CITY: [place] [address]IP [address] PHONE: DATE OF : 1940 AGE: 80 SSN# [id number] GENDER: Female MARITAL STATUS RACE Unknown race PRE-HOSPITAL LIVING SETTING 01 - Home (private home/apt. board/care, assisted living, long-term, transitional living) PRE-HOSPITAL LIVING WITH Family/Relatives ENCOUNTER PHYSICIAN: Dr. Stephen Conti M.D. REFERRING DOCTOR: Dr. Jose Kitchen DATE OF ADMISSION: 12/29/2020 15:46 (CDT) REFERRING FACILITY [facility] HOME TYPE AND DETAILS: Type of home: apartment # of levels in the residence: 1 # of steps within the residence: 0 # of steps to enter the residence: 1 Pt. lives at [facility]. She is independent and ambulatory at home. Pt. [place] s home oxygen that she uses 24/7 on 4L/min.has a tub that she gets in to bathe. PRIMARY DIAGNOSIS-RELATED SURGERIES: No surgeries related to the primary diagnosis were performed. SECONDARY/COMORBID DIAGNOSES (TIERED): - Non-Tiered Pneumonia, unspecified organism (J18.9) HISTORY OF PRESENT ILLNESS (HPI): Pt. is a 80 yo Right-handed female of unknown race. On 12/21/2020 she was admitted to [facility] with diagnosis Acute on Chronic CO PD exacerbation with pneumonia and subsequent weakness. Her impairment category is Pulmonary Disorders 10 - Chronic Obstructive Pulmonary Disease (10.1). Pre-morbidly, Pt. was independent/mod-I in Locomotion and Self-Care; and she had good Sphincter Contr ol, Transfers Control, and Balance. Currently, she has deficits of Locomotion, Balance, Transfers Control, Endurance, Self-Care, and Safe ty Awareness. Pt. is now referred to [facility] for acute in-patient rehabilitation in order to maximize patient's functional independence in activities of daily living, strength, ROM, and mobi lity. Patient has realistic goal of being discharged at assistance level 7-Ind to reside at Home with Fami ly/Relatives. MEDICATION ALLERGIES: No Known Drug Allergies (NKDA) ENVIRONMENTAL ALLERGIES: - Substance Allergies None Known - Other Allergies None Known PAST MEDICAL HISTORY: Hypertension Chronic obstructive pulmonary disease with (acute) exacerbation (J44.1) Hyperlipidemia, unspecified (E78.5) COVID-19 (U07.1) Allergic rhinitis, unspecified (J30.9) atypical mycobacterial lung infection Diverticulosis Osteoporosis Hyponatremia PAST SURGICAL HISTORY: Tonsillectomy Appendectomy Hysterectomy Carpal Tunnel Release R UE SOCIAL HISTORY: - Home Living Family/Relatives REVIEW OF SYSTEMS: - Gen No Chills Fatigue No Fever - Eyes No Double Vision No itchiness - ENMT No Difficulty Swallowing - CVS No Chest Discomfort No Chest Pain No Fatigue No Weight Gain - Resp No Cough No Shortness of Breath - GI Continent No Abdominal Pain No Constipation No Diarrhea - Continent No Kidney Pain No Painful Urination No Urinary Urgency - MSK No Joint Pain No Muscle Cramps Stiffness - Skin No Itching No Rash No Suspicious Lesions - Neuro Coordination Difficulty No Difficulty with Concentration No Memory Loss No Seizures Weakness - Psych No Anxiety No Depression No HIV Exposure No Persistent Infections No Seasonal Allergies - Endo No Cold/Heat Intolerance No Excessive Hunger No Excessive Thirst No Excessive Urination PHYSICAL EXAM - Gen Alert and awake Lying in bed No apparent distress Oriented to: person, time, and place - Skin No breakdown No abnormalities - Eyes No abnormalities - ENMT No abnormalities - Neck No abnormalities - CVS RRR - Chest Mildly decreased breath sounds bilaterally. - Abd Soft - GI + bowel sounds Deferred - No abnormalities - Ext No significant edema - MSK 4/5 weakness in both lower extremities. - Neuro No focal deficits - Psych No abnormalities VITAL SIGNS Temperature: 96.9 F SBP/DBP: 140/81 Pulse: 80 Resp: 16 4L O2 nc NURSING: - Shower allowing shower ACTIVITIES OOB only with supervision QI SCORES: - Self-Care A. Eating 05-Setup or clean-up assistance B. Oral hygiene 05-Setup or clean-up assistance C. Toileting hygiene 04-Supervision or touching assistance E. Shower/bathe self 03-Partial/moderate assistance F. Upper body dressing 04-Supervision or touching assistance G. Lower body dressing 03-Partial/moderate assistance H. Putting on/taking off footwear 03-Partial/moderate assistance - Mobility A. Roll left and right 04-Supervision or touching assistance B. Sit to lying 04-Supervision or touching assistance C. Lying to sitting on side of bed 04-Supervision or touching assistance D. Sit to stand 04-Supervision or touching assistance E. Chair/iyo-bk-hsaqs transfer 04-Supervision or touching assistance F. Toilet transfer 04-Supervision or touching assistance G. Car transfer 88-Not attempted due to medical condition or safety concerns I. Walk 10 feet 04-Supervision or touching assistance J. Walk 50 feet with two turns 04-Supervision or touching assistance K. Walk 150 feet 04-Supervision or touching assistance L. Walking 10 feet on uneven surfaces 88-Not attempted due to medical condition or safety concerns M. 1 step (curb) 88-Not attempted due to medical condition or safety concerns N. 4 steps 88-Not attempted due to medical condition or safety concerns O. 12 steps 88-Not attempted due to medical condition or safety concerns P. Picking up object 88-Not attempted due to medical condition or safety concerns R. Wheel 50 feet with two turns S. Wheel 150 feet - Bladder and Bowel Bladder continence Bowel continence 9-Not rated - Endurance Fair - Balance Poor - Safety Awareness Fair CURRENT FUNC. DEFICITS: Self-Care, Mobility, Endurance, Balance, and Safety Awareness MEDICATIONS: - Other See attached MAR (Medication Administration Record) ASSESSMENT: Pt. is a 80 yo Right-handed female of unknown race.On 12/21/2020 she was admitted to [facility] with diagnosis Acute on Chronic COPD exacerbation with pneumonia and subsequent weak ness.Her impairment category is Pulmonary Disorders 10 - Chronic Obstructive Pulmonary Disease (10.1 ).Pre-morbidly, Pt. was independent/mod-I in Locomotion and Self-Care; and she had good Sphincter Con trol, Transfers Control, and Balance.Currently, she has deficits of Locomotion, Balance, Transfers Co ntrol, Endurance, Self-Care, and Safety Awareness.Pt. is now referred to [facility] for acute in-patient rehabilitation in order to maximize patient's functional independence in a ctivities of daily living, strength, ROM, and mobility.- Rehab Goal Patient has realistic goal of being discharged at assistance level 7-Ind to reside at Home with Fami ly/Relatives. - Physical Therapy Gait dysfunction - to improve, our physical therapists will perform initial evaluation of pt's status upon admission and devise an individualized program for Gait Training, and Wheel Chair mobility Inability to transfer - to improve, our physical therapists will perform initial evaluation of pt's s tatus upon admission and devise an individualized program for Bed mobility Need for home safety evaluation - to improve, our physical therapists will perform initial evaluation of pt's status upon admission and devise an individualized program for Home Evaluation Need in caregiver upon discharge - to improve, our physical therapists will perform initial evaluatio n of pt's status upon admission and devise an individualized program for Caregiver Training New precaution - to improve, our physical therapists will perform initial evaluation of pt's status u steve admission and devise an individualized program for Patient precaution education Edema - to improve, our physical therapists will perform initial evaluation of pt's status upon admi ssion and devise an individualized program for Elevation Training, and Lymphedema Therapy Poor balance - to improve, our physical therapists will perform initial evaluation of pt's status upo n admission and devise an individualized program for Balance Training Poor endurance - to improve, our physical therapists will perform initial evaluation of pt's status u steve admission and devise an individualized program for Endurance Training Weakness - to improve, our physical therapists will perform initial evaluation of pt's status upon ad mission and devise an individualized program for Aquatic Therapy, Neuromuscular Reeducation, and Stre ngthening Achieving independence - to improve, our physical therapists will perform initial evaluation of pt's status upon admission and devise an individualized program for Community Reintegration Activities - Occupational Therapy ADL deficits - to improve, our occupation therapists will perform initial evaluation of pt's status u steve admission and devise an individualized program for Bathing, Bed mobility, Community Reintegration , Cooking, Dressing, Eating, Fine Motor Skills, Grooming, Homemaking, Kitchen Mobility, Laundry, Martha ent Education, Safety Awareness, Splinting - Positioning, Transfers(Toilet, Tub, Shower), and Wheel C hair Management Need for reproductive healthcare assistant - to improve, our occupation therapists will perform initial evaluation of pt's s tatus upon admission and devise an individualized program for Caregiver Training Weakness - to improve, our occupation therapists will perform initial evaluation of pt's status upon admission and devise an individualized program for Aquatic Therapy, Balance, Endurance, UE ROM, and U E strengthening MEDICAL PLAN: - Diet Type Start Regular - Diet - Liquid Texture Start Regular - Tube Feed Start N/A - Other See attached MAR (Medication Administration Record) - Diet - Solid Texture Regular - Shower shower DISCHARGE PLAN: - Estimated Length of Stay (days) 11. - Consensus on plan Discharge plan has been discussed with primary caregiver. Patient/Family is in agreement with the felice n. Primary caregiver is in agreement with the plan. - Patient/Family Goals Home to live with daughter independently. - Planned Living Setting Upon Discharge Home, to live with Family/Relatives. SIGNATURE PANEL: (CDT)
--- NOTE | 2020-12-30 17:35 | PAPE ---
POST ADMISSION PHYSICIAN EVALUATION PATIENT: [facility] MR# [id number] REFERRING DOCTOR Dr. Jose Kitchen EVALUATION DATE AND TIME 12/30/2020 17:30 (CDT) NAME KAYLIE ARTHUR DATE OF 1940 AGE 80 PHONE SSN# [id number] GENDER female EVALUATING PHYSICIAN Dr. Stephen Conti M.D. ADMISSION DIAGNOSIS: Acute on Chronic COPD exacerbation with pneumonia and subsequent weakness SECONDARY/COMORBID DIAGNOSES TIERED: - Non-Tiered Pneumonia, unspecified organism (J18.9) POST-ADMISSION FUNCTIONAL/MEDICAL STATUS: - Bladder Same accident frequency: 7-Ind - No accidents in the past 7 days - Bowel Same accident frequency: 7-Ind - No accidents in the past 7 days - Walking Same score based on distance walked: 0(N/A) Same score based on distance walked: 3(>=150ft) - Wheelchair Same score based on distance traveled: 0(N/A) STATUS CHANGE EVALUATION: No change in Functional or Medical Status is identified compared with Pre-Admission screening. PATIENT NEEDS CLOSE MEDICAL SUPERVISION BY A REHABILITATION PHYSICIAN FOR: Coordination of Treatment Team Medical and Co-Morbidity Management PATIENT REQUIRES 24X7 REHAB NURSING FOR MEDICAL AND FUNCTIONAL MGT. OF THE FOLLOWING DEFICITS: Disease Management Medication Management Patient/Family Education Providing Safe Environment PATIENT REQUIRES INTENSIVE, COORDINATED INTERDISCIPLINARY APPROACH TO REHAB: Arranging Home Equipment/Services Discharge Planning Family Intervention/Training Wirer Maintenance/Case Management LIST OF IDENTIFIED AND POTENTIAL PROBLEMS: Alteration in leisure activities Bladder, Incontinence Bowel, Incontinence Infection, Actual or Potential Mobility Impaired Pain, Alteration in Comfort Self Care Deficit Skin Integrity, Actual or Potential Urinary Tract Infection (UTI), Actual or Potential RISK FOR COMPLICATIONS - Hypertension Hypertension. - COPD COPD. Pneumonia. - Osteoporosis Osteoporosis. - Acute Respiratory failure Acute Respiratory failure. PATIENT COULD BE AT RISK FOR COMPLICATIONS FROM ADVERSE MEDICAL CONDITIONS DUE TO HIS/HER COMORBIDITI ES AND THE RIGORS OF THE INTENSIVE REHABILLITATION PROGRAM. METHODS OR INTERVENTIONS TO AVOID COMPLIC ATIONS INCLUDE: - Infection Clinical staff to assess and manage the signs and symptoms of infection including fever, redness, war mth, etc. - Urinary Tract Infection - Falls Patient will be evaluated for Fall Precautions and will be placed on Fall Precautions as indicated pe r protocol. - Skin Breakdown Nursing will assess skin daily using assessment tool and will place on Skin Breakdown Precautions as indicated per protocol. - Pain Clinical staff may employ non-medication methods such as massage, distraction, decrease stimulus, etc . as needed. Clinical staff will assess patient's pain level every shift per protocol to assess and e nsure pain management effectiveness. Medications will be given and the pain level re-assessed. PRELIMINARY PLAN OF CARE: - Physical Therapy Patient needs Physical Therapy for a daily minimum of 1.5 hours at least 5 out of 7 days, to improve: Mobility, Strengthening, Transfers, Stretching, ROM, Endurance, Ability to manage stairs, Gait, and Balance. - Speech Therapy Patient needs Speech Therapy for a daily minimum of 0.5 hours at least 5 out of 7 days, to improve: S wallowing, Cognition, Language Skills, and Compensatory Strategies. - Rehabilitation Nursing Patient requires 24x7 Rehabilitation Nursing for: Pain Issues, Identifying and preventing risk factor s, Monitoring and reporting current medical conditions, Assisting with ambulation and transfer, Edwin ting with all ADL-s, Teaching patients about disease process and medications, Family teaching, Provid ing safe environment, Bowel and Bladder Issues, Skin Integrity, and Medication Management. Patient needs Wirer Maintenance and/or Case Management for: Discharge Planning, Arranging Home Equipmen t or Services, and Family Interventions. - Dietary and Nutrition Services Patient needs Dietary and Nutrition Services for: Adequate Nutrition, Nutritional Supplements, and Nu tritional Education. - Occupational Therapy Patient needs Occupational Therapy for a daily minimum of 1.5 hours at least 5 out of 7 days, to impr ove Activities of Daily Living, including: Eating, Grooming, Bathing, Dressing, Toileting, Toilet Tra nsfers, Community Reintegration, Higher functional activities, Adaptive Equipment, Splinting, Househo ld Tasks, and Other activities as determined. QI SCORES: - Self-Care A. Eating 05-Setup or clean-up assistance B. Oral hygiene 05-Setup or clean-up assistance C. Toileting hygiene 04-Supervision or touching assistance E. Shower/bathe self 03-Partial/moderate assistance F. Upper body dressing 04-Supervision or touching assistance G. Lower body dressing 03-Partial/moderate assistance H. Putting on/taking off footwear 03-Partial/moderate assistance - Mobility A. Roll left and right 04-Supervision or touching assistance B. Sit to lying 04-Supervision or touching assistance C. Lying to sitting on side of bed 04-Supervision or touching assistance D. Sit to stand 04-Supervision or touching assistance E. Chair/kbu-ye-gkdig transfer 04-Supervision or touching assistance F. Toilet transfer 04-Supervision or touching assistance G. Car transfer 88-Not attempted due to medical condition or safety concerns I. Walk 10 feet 04-Supervision or touching assistance J. Walk 50 feet with two turns 04-Supervision or touching assistance K. Walk 150 feet 04-Supervision or touching assistance L. Walking 10 feet on uneven surfaces 88-Not attempted due to medical condition or safety concerns M. 1 step (curb) 88-Not attempted due to medical condition or safety concerns N. 4 steps 88-Not attempted due to medical condition or safety concerns O. 12 steps 88-Not attempted due to medical condition or safety concerns P. Picking up object 88-Not attempted due to medical condition or safety concerns R. Wheel 50 feet with two turns S. Wheel 150 feet - Bladder and Bowel Bladder continence Bowel continence 9-Not rated - Endurance Fair - Balance Poor - Safety Awareness Fair POTENTIAL FUNCTIONAL GOALS FOR PATIENT TO ACHIEVE BY DISCHARGE: - Safety Precaution Patient will remain free from falls or injury at time of discharge. - Bed Mobility Patient will perform bed mobility at 4-Natalie level of assistance. - Transfers Patient will complete transfers from bed to chair at 4-Natalie level of assistance. - Mobility Patient will ambulate 150 ft with 4-Natalie level of assistance with RW. PATIENT REHAB POTENTIAL Hebert ARTHUR is able and expected to receive 3 hours of individualized therapy daily on at least 5 of ev wade 7 days Hebert ARTHUR's prognosis for significant practical improvement within a reasonable period of time appear s Good Expected level of measurable improvement will be of a practical value to Hebert ARTHUR's functional capac ity or adaptations to impairments Has a viable Discharge Plan Medically appropriate; condition is sufficiently stable to participate in intensive rehab program DISCHARGE PLAN: - Estimated Length of Stay (days) 11. - Consensus on plan Discharge plan has been discussed with primary caregiver. Patient/Family is in agreement with the felice n. Primary caregiver is in agreement with the plan. - Patient/Family Goals Home to live with daughter independently. - Planned Living Setting Upon Discharge Home, to live with Family/Relatives. CONCLUSION ON REHABILITATION NECESSITY: I have evaluated patient's pre-admission functional status and, comparing it to the patient's post-ad mission functional status now, I conclude that the pre-admission assessment was accurate. Patient's c ondition on admission supports the medical necessity of admission to IR[facility]. It is safe to proceed with patient's therapy program. SIGNATURE PANEL: (CDT)
[2020-12-30] MEDS: ENOXAPARIN 30 MG/0.3 ML SQ SCH (17:41)
[2020-12-30] MEDS ORDERED: NA CHLORIDE 0.9% 250 ML ONE (18:14)
[2020-12-30] MEDS: ROPINIROLE HCL 0.25 MG TAB PO SCH (20:06)
[2020-12-30] MEDS: DONEPEZIL HCL 5 MG TAB PO SCH (20:06)
[2020-12-31] MEDS: PIPER/TAZO/NS 3.375gm 3.375 GM/100 ML BAG IVPB SCH ×3 (00:06→17:01)
[2020-12-31] MEDS: ALBUTEROL 2.5 MG/3 ML NEB SOL NEB SCH ×4 (01:45→20:55)
[2020-12-31] MEDS: IPRATROPIUM BROM 0.5MG/2.5ML NEB SCH ×4 (01:45→20:55)
[2020-12-31] MEDS: LIDOCAINE 4% PATCH TOP SCH (06:12)
[2020-12-31 06:52] LABS: Hematocrit 36.8 % (36.0-45.0); Lymphocytes % 4.8 % (15.3-44.8); MPV 6.8 fL (7.6-11.3); RBC Red Blood Cell Count 4.02 M/uL (3.86-4.86)
[2020-12-31 07:17] LABS: Blood Morphology Comment NOT SEEN (NOT SEEN); Platelet Estimate INCR
[2020-12-31 07:18] LABS: Platelets, Giant PRESENT
[2020-12-31 07:24] LABS: Albumin 2.8 g/dL (3.4-5.0); BUN Blood Urea Nitrogen 21 mg/dL (7-18); Bicarbonate 36 mmol/L (21-32); Glucose Level 114 mg/dL (74-106); Magnesium 2.1 mg/dL (1.8-2.4); Potassium 4.2 mmol/L (3.5-5.1); Prealbumin 27.8 mg/dL (20-40); Sodium Level 133 mmol/L (136-145)
[2020-12-31] MEDS: METOPROLOL TAR 25 MG TAB PO SCH ×2 (07:53→20:31)
[2020-12-31] MEDS: AMLODIPINE 2.5 MG TAB PO SCH (07:55)
[2020-12-31] MEDS: levoFLOXacin 500 MG TAB PO SCH (07:55)
[2020-12-31] MEDS: predniSONE 20 MG TAB PO SCH (07:55)
[2020-12-31] MEDS: MONTELUKAST 10 MG TAB PO SCH (07:55)
[2020-12-31] MEDS: TRAMADOL HCL 50 MG TAB PO PRN (07:57)
[2020-12-31] MEDS: buPROPion HCL 100 MG TAB PO SCH (08:03)
[2020-12-31] MEDS: BUDESONIDE 0.25 MG/2 ML NEB NEB SCH ×2 (09:15→20:55)
[2020-12-31] MEDS: ENOXAPARIN 30 MG/0.3 ML SQ SCH (17:01)
[2020-12-31] MEDS: DONEPEZIL HCL 5 MG TAB PO SCH (20:32)
[2020-12-31] MEDS: ROPINIROLE HCL 0.25 MG TAB PO SCH (20:32)
[2021-01-01] MEDS: PIPER/TAZO/NS 3.375gm 3.375 GM/100 ML BAG IVPB SCH ×3 (00:09→16:12)
[2021-01-01] MEDS ORDERED: NA CHLORIDE 0.9% 250 ML ONE (01:12)
[2021-01-01] MEDS: ALBUTEROL 2.5 MG/3 ML NEB SOL NEB SCH ×4 (02:00→19:45)
[2021-01-01] MEDS: IPRATROPIUM BROM 0.5MG/2.5ML NEB SCH ×4 (02:00→19:45)
[2021-01-01] MEDS: BUDESONIDE 0.25 MG/2 ML NEB NEB SCH ×2 (07:55→19:45)
[2021-01-01] MEDS: METOPROLOL TAR 25 MG TAB PO SCH ×2 (08:03→19:23)
[2021-01-01] MEDS: levoFLOXacin 500 MG TAB PO SCH (08:04)
[2021-01-01] MEDS: predniSONE 20 MG TAB PO SCH (08:04)
[2021-01-01] MEDS: AMLODIPINE 2.5 MG TAB PO SCH (08:04)
[2021-01-01] MEDS: TRAMADOL HCL 50 MG TAB PO PRN (08:05)
[2021-01-01] MEDS: MONTELUKAST 10 MG TAB PO SCH (08:05)
[2021-01-01] MEDS: buPROPion HCL 100 MG TAB PO SCH (08:05)
--- NOTE | 2021-01-01 09:49 | P.RH.PN ---
Estimated Length of Stay: 10 Expected Discharge Date: 01/07/21 Discharge Disposition Plan: Home Family Support: Yes Alf Goal: Mobility, Transfers, Self Care Vital Signs: Last Vital Signs Temp 97.9 F 01/01/21 07:01 Pulse 66 01/01/21 08:04 Resp 18 01/01/21 09:05 BP 120/63 01/01/21 08:04 Pulse Ox 96 01/01/21 09:05 Laboratory: Laboratory Last Values WBC 21.20 K/uL (4.3-10.9) H* 12/31/20 06:20 RBC 4.02 M/uL (3.86-4.86) 12/31/20 06:20 Hgb 12.2 g/dL (12.0-15.0) 12/31/20 06:20 Hct 36.8 % (36.0-45.0) 12/31/20 06:20 MCV 91.5 fL (80-100) 12/31/20 06:20 MCH 30.3 pg (27.0-35.0) 12/31/20 06:20 MCHC 33.1 g/dL (32.0-36.0) 12/31/20 06:20 RDW 13.5 % (12.1-15.2) 12/31/20 06:20 Plt Count 456 K/uL (152-406) H 12/31/20 06:20 MPV 6.8 fL (7.6-11.3) L 12/31/20 06:20 Neutrophils % 89.7 % (41.7-73.7) H 12/31/20 06:20 Lymphocytes % 4.8 % (15.3-44.8) L 12/31/20 06:20 Monocytes % 5.4 % (3.3-12.3) 12/31/20 06:20 Eosinophils % 0.1 % (0-4.4) 12/31/20 06:20 Basophils % 0.0 % (0-1.3) 12/31/20 06:20 Absolute Neutrophils 19.0 K/uL (1.8-8.0) H 12/31/20 06:20 Segmented Neutrophils 86 % (40-80) H 12/31/20 06:20 Absolute Lymphocytes 1.0 K/uL (0.7-4.9) 12/31/20 06:20 Lymphocytes 5 % (15-42) L 12/31/20 06:20 Monocytes 9 % (0-10) 12/31/20 06:20 Absolute Monocytes 1.1 K/uL (0.1-1.3) 12/31/20 06:20 Absolute Eosinophils 0.0 K/uL (0-0.5) 12/31/20 06:20 Absolute Basophils 0.0 K/uL (0-0.5) 12/31/20 06:20 Platelet Estimate Incr 12/31/20 06:20 Giant Platelets Present 12/31/20 06:20 Morphology Comment Not seen (NOT SEEN) 12/31/20 06:20 Sodium 133 mmol/L (136-145) L 12/31/20 06:20 Potassium 4.2 mmol/L (3.5-5.1) 12/31/20 06:20 Chloride 95 mmol/L (98-107) L 12/31/20 06:20 Carbon Dioxide 36 mmol/L (21-32) H 12/31/20 06:20 BUN 21 mg/dL (7-18) H 12/31/20 06:20 Creatinine 0.63 mg/dL (0.55-1.3) 12/31/20 06:20 Estimated GFR > 90 mL/min (=/>90) 12/31/20 06:20 Glucose 114 mg/dL (74-106) H 12/31/20 06:20 Calcium 8.7 mg/dL (8.5-10.1) 12/31/20 06:20 Magnesium 2.1 mg/dL (1.8-2.4) 12/31/20 06:20 Albumin 2.8 g/dL (3.4-5.0) L 12/31/20 06:20 Prealbumin 27.8 mg/dL (20-40) 12/31/20 06:20 Urine Color Yellow (Yellow) 12/29/20 17:20 Urine Appearance Clear (Clear) 12/29/20 17:20 Urine pH 6.5 (5.0-7.0) 12/29/20 17:20 Ur Specific Crane 1.015 (1.005-1.030) 12/29/20 17:20 Glucose (UA)(Auto) Negative (Negative) 12/29/20 17:20 Urine Ketones Negative (Negative) 12/29/20 17:20 Urine Blood Negative (Negative) 12/29/20 17:20 Urine Nitrite Negative (Negative) 12/29/20 17:20 Urine Bilirubin Negative (Negative) 12/29/20 17:20 Urine Urobilinogen 0.2 mg/dL (0.2-1.0) 12/29/20 17:20 Ur Leukocyte Esterase Negative (Negative) 12/29/20 17:20 Urine RBC None seen /HPF (NONE SEEN) 12/29/20 17:20 Urine WBC <5 /HPF (<5) 12/29/20 17:20 Ur Squamous Epith Cells <5 /HPF (NONE SEEN) 12/29/20 17:20 Urine Bacteria <20 /HPF (<20) 12/29/20 17:20 Urine Culture Reflexed Not needed 12/29/20 17:20 Urine Total Protein Negative (Negative) 12/29/20 17:20 Weight: 102 lb 14.4 oz Wound Present: No Closed Surgical Incision Present: No Negative Pressure Wound Therapy Present: No Physician Update: Labs reviewed and WBCs are elevated to 21.2 with increased neutrophils to 89.7. Followed by Dr. Kitchen. Walking 300' with standby assistance using the rollator. Needs reminders to hold onto the rollator. Sats are doing well. She had 25/30 on MMSE due to short term memory. At moderate assistance for bathing, upper body dressing. Needs verbal ques. Incentive spirometry will be used. Functional Improvement Occupational Therapy: Pt is making steady progress towards above goals. Activity tolerance limits functional tasks. Continues to require occasional cues for safety during adl transfers and adls. Trialed itinerant teacher assistant for accessing items from floor. Would benefit from continued skilled OT to address above areas as well as endurance building. Summary: Patient's care plan and usp goals have been reviewed and revised as necessary. Please see the Rehabilitation Signature page for all necessary signatures.
[2021-01-01] MEDS: LIDOCAINE 4% PATCH TOP SCH (10:53)
[2021-01-01] MEDS: ENOXAPARIN 30 MG/0.3 ML SQ SCH (16:12)
[2021-01-01] MEDS: ROPINIROLE HCL 0.25 MG TAB PO SCH (19:24)
[2021-01-01] MEDS: DONEPEZIL HCL 5 MG TAB PO SCH (19:24)
--- NOTE | 2021-01-01 22:50 | PN ---
Date of Progress Note: 12/30/2020 Subjective: The patient was seen for followup in the morning. She was on the rehab floor, lying in bed, not in distress. Objective: Vital Signs: Reviewed. HEENT: Unremarkable. Lungs: Clear to auscultation. No rhonchi. No rales. Not using any accessory muscles of respiratio n. Heart: Sounds normal. Abdomen: Soft. Bowel sounds normal. No guarding, rigidity, tenderness, or distention. Extremities: No leg edema. Laboratory Data: White count 19.1, hemoglobin 11.7, platelets 392. Sodium 135, potassium 4.5, chlor sancho 97, bicarb 36, BUN 18, creatinine 0.46, glucose 106. Urinalysis from yesterday was normal. Impression: 1.Pneumonia. 2.Acute exacerbation of chronic obstructive pulmonary disease. 3.Chronic respiratory failure, with hypoxia and with hypercapnia. 4.Chronic obstructive pulmonary disease. 5.Anemia. Plan: We will go ahead and continue current medication. We will continue steroid, antibiotics, oxyg en nebulizer treatment. We will continue current DVT prophylaxis with Lovenox and I will see her anu desai for followup. YOSVANY/MODL Voice ID: [id number] Report ID: [id number]
--- NOTE | 2021-01-01 22:56 | PN ---
Date of Progress Note: 12/31/2020 Subjective: The patient was seen for followup. No new complaints or problems reported this morning when I saw her. Objective: Vital Signs: Reviewed. HEENT: Unremarkable. Lungs: Clear to auscultation. No wheezing. No rales. Heart: Sounds normal. Abdomen: Soft. Bowel sounds normal. No guarding, rigidity, tenderness, or distention. Extremities: No leg edema. Laboratory Data: Sodium 133, potassium 4.2, chloride 95, bicarb 36, BUN 21, creatinine 0.63, glucose 114. White count 21.2, hemoglobin 12.2, platelets 456. Impression: 1.Pneumonia. 2.Chronic obstructive pulmonary disease. 3.Chronic respiratory failure with hypoxia and hypercapnia. 4.Anemia, unspecified. Plan: We will continue current medication. Continue physical therapy under guidance of Dr. Conti . We will continue current steroid and antibiotics. I will see her tomorrow for followup. Continue current oxygen. She is on about 3 L nasal cannula oxygen. I will see her tomorrow morning for foll owup. YOSVANY/MODL Voice ID: [id number] Report ID: [id number]
--- NOTE | 2021-01-01 23:05 | PN ---
Date of Progress Note: 01/01/2021 Subjective: The patient was seen this morning for followup. No new complaints or problems reported by her. She is lying in bed, not in any distress. Denies any nausea, vomiting. She has some loose bowel movement 2-3 times a day. This is related to antibiotic use. Objective: Vital Signs: Reviewed. HEENT: Unremarkable. Lungs: Clear to auscultation. Heart: Heart sounds normal. Abdomen: Soft. Bowel sounds normal. No guarding, rigidity, tenderness, or distension. Extremities: No leg edema. Impression: 1.Pneumonia. 2.Chronic obstructive pulmonary disease. 3.Chronic respiratory failure with hypoxia and hypercapnia. 4.Anemia, unspecified. 5.Generalized weakness. 6.Debility. Plan: We will continue current medications. Continue current steroid. We have reduced prednisone d ose from 20 mg twice a day to 20 mg once a day as of yesterday and we will continue current antibioti cs, which is Zosyn and Levaquin. Continued Lovenox for DVT prophylaxis. I will see her tomorrow for followup. YOSVANY/MODL Voice ID: [id number] Report ID: [id number]
[2021-01-02] MEDS: PIPER/TAZO/NS 3.375gm 3.375 GM/100 ML BAG IVPB SCH ×3 (00:02→16:28)
[2021-01-02] MEDS: ALBUTEROL 2.5 MG/3 ML NEB SOL NEB SCH ×4 (01:15→19:28)
[2021-01-02] MEDS: IPRATROPIUM BROM 0.5MG/2.5ML NEB SCH ×4 (01:15→19:28)
[2021-01-02 06:58] LABS: Basophils % 0.1 % (0-1.3); Lymphocytes % 13.7 % (15.3-44.8); MPV 6.7 fL (7.6-11.3); RBC Red Blood Cell Count 3.64 M/uL (3.86-4.86)
[2021-01-02 07:21] LABS: BUN Blood Urea Nitrogen 16 mg/dL (7-18); Bicarbonate 35 mmol/L (21-32); Glucose Level 70 mg/dL (74-106); Potassium 3.9 mmol/L (3.5-5.1); Sodium Level 136 mmol/L (136-145)
[2021-01-02] MEDS: LIDOCAINE 4% PATCH TOP SCH (08:09)
[2021-01-02] MEDS: METOPROLOL TAR 25 MG TAB PO SCH ×2 (08:13→19:57)
[2021-01-02] MEDS: MONTELUKAST 10 MG TAB PO SCH (08:13)
[2021-01-02] MEDS: AMLODIPINE 2.5 MG TAB PO SCH (08:13)
[2021-01-02] MEDS: predniSONE 20 MG TAB PO SCH (08:15)
[2021-01-02] MEDS: levoFLOXacin 500 MG TAB PO SCH (08:15)
[2021-01-02] MEDS: TRAMADOL HCL 50 MG TAB PO PRN (08:15)
[2021-01-02] MEDS: buPROPion HCL 100 MG TAB PO SCH (08:16)
[2021-01-02] MEDS: BUDESONIDE 0.25 MG/2 ML NEB NEB SCH ×2 (08:29→19:28)
[2021-01-02] MEDS: ENOXAPARIN 30 MG/0.3 ML SQ SCH (16:22)
[2021-01-02] MEDS: ENSURE ENLIVE 237 ML CAN PO SCH (19:56)
[2021-01-02] MEDS: DONEPEZIL HCL 5 MG TAB PO SCH (19:57)
[2021-01-02] MEDS: ROPINIROLE HCL 0.25 MG TAB PO SCH (19:57)
[2021-01-03] MEDS: PIPER/TAZO/NS 3.375gm 3.375 GM/100 ML BAG IVPB SCH ×3 (00:16→16:54)
[2021-01-03] MEDS: IPRATROPIUM BROM 0.5MG/2.5ML NEB SCH ×4 (00:50→19:25)
[2021-01-03] MEDS: ALBUTEROL 2.5 MG/3 ML NEB SOL NEB SCH ×4 (00:50→19:25)
--- NOTE | 2021-01-03 01:04 | PN ---
Date of Progress Note: 01/02/2021 Subjective: The patient was seen this morning for followup. No new complaints were reported by judi ent. Objective: HEENT: Unremarkable. Lungs: Clear to auscultation. Heart: Sounds normal. Abdomen: Soft, bowel sounds normal. No guarding, rigidity, tenderness, or distention. Extremities: No leg edema. Laboratory Data: White count 14.8, hemoglobin 10.8, platelets 422. Sodium 136, potassium 3.9, chlor sancho 99, bicarb 36, BUN 16, creatinine 0.55, glucose 73. Impression: 1.Pneumonia. 2.Chronic obstructive pulmonary disease. 3.Chronic respiratory failure with hypoxia and hypercapnia. Plan: We will continue current medications. Continue physical therapy as per the guidance of Dr. Herman clayton. and oral prednisone. I will see her tomorrow for followup. YOSVANY/MODL Voice ID: [id number] Report ID: [id number]
[2021-01-03] MEDS: LIDOCAINE 4% PATCH TOP SCH (06:18)
[2021-01-03] MEDS: BUDESONIDE 0.25 MG/2 ML NEB NEB SCH ×2 (07:41→19:25)
[2021-01-03] MEDS: METOPROLOL TAR 25 MG TAB PO SCH ×2 (08:22→20:00)
[2021-01-03] MEDS: predniSONE 20 MG TAB PO SCH (08:22)
[2021-01-03] MEDS: levoFLOXacin 500 MG TAB PO SCH (08:23)
[2021-01-03] MEDS: AMLODIPINE 2.5 MG TAB PO SCH (08:23)
[2021-01-03] MEDS: MONTELUKAST 10 MG TAB PO SCH (08:23)
[2021-01-03] MEDS: ENSURE ENLIVE 237 ML CAN PO SCH ×2 (08:24→20:00)
[2021-01-03] MEDS: buPROPion HCL 100 MG TAB PO SCH (08:24)
--- NOTE | 2021-01-03 14:02 | PN ---
Date of Progress Note: 01/03/2021 Subjective: The patient was seen this morning for followup. Lying in bed, not in distress. She is on nasal cannula oxygen between 2-3 L/minute. No constipation or diarrhea problem. No chest pain. No shortness of breath. Objective: Vital Signs: Reviewed. HEENT: Unremarkable. Lungs: Clear to auscultation. Heart: Sounds normal. Abdomen: Soft. Bowel sounds normal. No guarding, rigidity, tenderness, or distention. Extremities: No leg edema. Impression: 1.Pneumonia. 2.Chronic obstructive pulmonary disease. 3.Chronic respiratory failure with hypoxia and hypercapnia. Plan: We will continue current medications. Continue current antibiotic, oral steroid, oxygen, and nebulizer treatment. I will see her tomorrow for followup. YOSVANY/MODL Voice ID: [id number] Report ID: [id number]
[2021-01-03] MEDS: ENOXAPARIN 30 MG/0.3 ML SQ SCH (16:53)
[2021-01-03] MEDS: DONEPEZIL HCL 5 MG TAB PO SCH (20:08)
[2021-01-03] MEDS: ROPINIROLE HCL 0.25 MG TAB PO SCH (20:08)
[2021-01-04] MEDS: PIPER/TAZO/NS 3.375gm 3.375 GM/100 ML BAG IVPB SCH ×3 (00:23→16:19)
[2021-01-04] MEDS: IPRATROPIUM BROM 0.5MG/2.5ML NEB SCH ×4 (01:38→20:50)
[2021-01-04] MEDS: ALBUTEROL 2.5 MG/3 ML NEB SOL NEB SCH ×4 (01:38→20:50)
[2021-01-04] MEDS: BUDESONIDE 0.25 MG/2 ML NEB NEB SCH ×2 (07:53→20:50)
[2021-01-04] MEDS: LIDOCAINE 4% PATCH TOP SCH (08:03)
[2021-01-04] MEDS: buPROPion HCL 100 MG TAB PO SCH (08:04)
[2021-01-04] MEDS: MONTELUKAST 10 MG TAB PO SCH (08:04)
[2021-01-04] MEDS: levoFLOXacin 500 MG TAB PO SCH (08:04)
[2021-01-04] MEDS: AMLODIPINE 2.5 MG TAB PO SCH (08:04)
[2021-01-04] MEDS: predniSONE 20 MG TAB PO SCH (08:05)
[2021-01-04] MEDS: METOPROLOL TAR 25 MG TAB PO SCH ×2 (08:05→19:36)
[2021-01-04] MEDS: TRAMADOL HCL 50 MG TAB PO PRN (08:06)
[2021-01-04] MEDS: ENSURE ENLIVE 237 ML CAN PO SCH ×2 (08:07→20:04)
[2021-01-04] MEDS: ENOXAPARIN 30 MG/0.3 ML SQ SCH (16:19)
[2021-01-04] MEDS: ROPINIROLE HCL 0.25 MG TAB PO SCH (20:04)
[2021-01-04] MEDS: DONEPEZIL HCL 5 MG TAB PO SCH (20:04)
[2021-01-04] MEDS ORDERED: NA CHLORIDE 0.9% 250 ML ONE (20:13)
--- NOTE | 2021-01-04 22:35 | R.PN ---
PROGRESS NOTES ENCOUNTER DATE AND TIME: 01/04/2021 18:04 (CDT) NAME KAYLIE ARTHUR DATE OF : 1940 DATE OF ADMISSION: 12/29/2020 15:46 (CDT) Acute on Chronic COPD exacerbation with pneumonia and subsequent weaknessCHIEF COMPLAINT: COPD exacerbation and debility SUBJECTIVE: Pt denied any depression. Pt denied any Shortness of Breath. She is doing well with physical and occupational therapy. Her blood work is stable. Pain is well managed. She is making good overall progress with physical and occupational therapy. She has improved shortness of breath with oxygen via nasal cannula. VITAL SIGNS Temperature: 97.3 F SBP/DBP: 135/78 Pulse: 78 Resp: 16 MEDICATION ALLERGIES: No Known Drug Allergies (NKDA) ENVIRONMENTAL ALLERGIES: - Substance Allergies None Known - Other Allergies None Known NURSING: - Shower allowing shower ACTIVITIES OOB only with supervision THERAPIES: - Dietary and Nutrition Adequate Nutrition. Nutritional Education. Nutritional Supplements. - Occupational Therapy Cognitive Retraining. Visual Perceptual Training. - Speech Therapy Cognitive Training. Expressive Language Skills. Memory Strategies. Receptive Language Skills. Speech Intelligibility Training. PHYSICAL EXAM - Gen Alert and awake Lying in bed No apparent distress Oriented to: person, time, and place - Skin No breakdown No abnormalities - Eyes No abnormalities - ENMT No abnormalities - Neck No abnormalities - CVS RRR - Chest Mildly decreased breath sounds bilaterally. - Abd Soft - GI + bowel sounds Deferred - No abnormalities - Ext No significant edema - MSK 4/5 weakness in both lower extremities. - Neuro No focal deficits - Psych No abnormalities ASSESSMENT: Pt. is a 80 yo Right-handed female of unknown race.On 12/21/2020 she was admitted to [facility] with diagnosis Acute on Chronic COPD exacerbation with pneumonia and subsequent weak ness.Her impairment category is Pulmonary Disorders 10 - Chronic Obstructive Pulmonary Disease (10.1 ).Pre-morbidly, Pt. was independent/mod-I in Locomotion and Self-Care; and she had good Sphincter Con trol, Transfers Control, and Balance.Currently, she has deficits of Locomotion, Balance, Transfers Co ntrol, Endurance, Self-Care, and Safety Awareness.Pt. is now referred to [facility] for acute in-patient rehabilitation in order to maximize patient's functional independence in a ctivities of daily living, strength, ROM, and mobility.- Rehab Goal Patient has realistic goal of being discharged at assistance level 7-Ind to reside at Home with Fami ly/Relatives. MDM/PLAN: - Physical Therapy Gait dysfunction - to improve, our physical therapists will perform initial evaluation of pt's statu s upon admission and devise an individualized program for Gait Training, and Wheel Chair mobility Inability to transfer - to improve, our physical therapists will perform initial evaluation of pt's status upon admission and devise an individualized program for Bed mobility Need for home safety evaluation - to improve, our physical therapists will perform initial evaluatio n of pt's status upon admission and devise an individualized program for Home Evaluation Need in caregiver upon discharge - to improve, our physical therapists will perform initial evaluati on of pt's status upon admission and devise an individualized program for Caregiver Training New precaution - to improve, our physical therapists will perform initial evaluation of pt's status upon admission and devise an individualized program for Patient precaution education Edema - to improve, our physical therapists will perform initial evaluation of pt's status upon admis kimberlee and devise an individualized program for Elevation Training, and Lymphedema Therapy Poor balance - to improve, our physical therapists will perform initial evaluation of pt's status up on admission and devise an individualized program for Balance Training Poor endurance - to improve, our physical therapists will perform initial evaluation of pt's status upon admission and devise an individualized program for Endurance Training Weakness - to improve, our physical therapists will perform initial evaluation of pt's status upon a dmission and devise an individualized program for Aquatic Therapy, Neuromuscular Reeducation, and Str engthening Achieving independence - to improve, our physical therapists will perform initial evaluation of pt's status upon admission and devise an individualized program for Community Reintegration Activities - Occupational Therapy ADL deficits - to improve, our occupation therapists will perform initial evaluation of pt's status upon admission and devise an individualized program for Bathing, Bed mobility, Community Reintegratio n, Cooking, Dressing, Eating, Fine Motor Skills, Grooming, Homemaking, Kitchen Mobility, Laundry, Pat ient Education, Safety Awareness, Splinting - Positioning, Transfers(Toilet, Tub, Shower), and Wheel Chair Management Need for career professional - to improve, our occupation therapists will perform initial evaluation of pt's status upon admission and devise an individualized program for Caregiver Training Weakness - to improve, our occupation therapists will perform initial evaluation of pt's status upon admission and devise an individualized program for Aquatic Therapy, Balance, Endurance, UE ROM, and UE strengthening - Other See attached MAR (Medication Administration Record) - Diet Type Continue Regular - Diet - Liquid Texture Continue Regular - Tube Feed Continue N/A - Diet - Solid Texture Continue Regular - Shower allowing shower FUNCTIONAL STATUS: UPDATED AT WEEKLY TEAM CONFERENCE - Bladder Same accident frequency: 7-Ind - No accidents in the past 7 days - Bowel Same accident frequency: 7-Ind - No accidents in the past 7 days - Walking Same score based on distance walked: 0(N/A) Same score based on distance walked: 3(>=150ft) - Wheelchair Same score based on distance traveled: 0(N/A) FUNCTIONAL STATUS: - Self-Care A. Eating Alissa B. Grooming sup C. Bathing sup D. Dressing - Upper Natalie E. Dressing - Lower Natalie F. Toileting Natalie - Sphincter Control G. Bladder control Natalie H. Bowel control Natalie - Transfers Control I. Bed/Chair/Wheelchair Natalie J. Toilet Natalie K. Tub/Shower modA - Locomotion L. Walk/Wheelchair (B) Natalie M. Stairs Natalie - Communication N. Comprehension (B) Natalie O. Expression (B) Natalie - Social Cognition P. Social Interaction sup Q. Problem Solving sup R. Memory Alissa - Endurance Fair - Balance Fair - Safety Awareness Fair QI SCORES: - Self-Care A. Eating 05-Setup or clean-up assistance B. Oral hygiene 05-Setup or clean-up assistance C. Toileting hygiene 04-Supervision or touching assistance E. Shower/bathe self 03-Partial/moderate assistance F. Upper body dressing 04-Supervision or touching assistance G. Lower body dressing 03-Partial/moderate assistance H. Putting on/taking off footwear 03-Partial/moderate assistance - Mobility A. Roll left and right 04-Supervision or touching assistance B. Sit to lying 04-Supervision or touching assistance C. Lying to sitting on side of bed 04-Supervision or touching assistance D. Sit to stand 04-Supervision or touching assistance E. Chair/jbj-ob-ojily transfer 04-Supervision or touching assistance F. Toilet transfer 04-Supervision or touching assistance G. Car transfer 88-Not attempted due to medical condition or safety concerns I. Walk 10 feet 04-Supervision or touching assistance J. Walk 50 feet with two turns 04-Supervision or touching assistance K. Walk 150 feet 04-Supervision or touching assistance L. Walking 10 feet on uneven surfaces 88-Not attempted due to medical condition or safety concerns M. 1 step (curb) 88-Not attempted due to medical condition or safety concerns N. 4 steps 88-Not attempted due to medical condition or safety concerns O. 12 steps 88-Not attempted due to medical condition or safety concerns P. Picking up object 88-Not attempted due to medical condition or safety concerns R. Wheel 50 feet with two turns S. Wheel 150 feet - Bladder and Bowel Bladder continence Bowel continence 9-Not rated - Endurance Fair - Balance Poor - Safety Awareness Fair CURRENT FUNC. DEFICITS: Self-Care, Mobility, Endurance, Balance, and Safety Awareness SIGNATURE PANEL: (CDT)
[2021-01-05] MEDS: PIPER/TAZO/NS 3.375gm 3.375 GM/100 ML BAG IVPB SCH ×3 (00:12→16:30)
[2021-01-05] MEDS: ALBUTEROL 2.5 MG/3 ML NEB SOL NEB SCH ×4 (02:00→21:10)
[2021-01-05] MEDS: IPRATROPIUM BROM 0.5MG/2.5ML NEB SCH ×4 (02:00→21:10)
[2021-01-05] MEDS: BUDESONIDE 0.25 MG/2 ML NEB NEB SCH ×2 (07:40→21:10)
--- NOTE | 2021-01-05 07:48 | RAD REPORT ---
EXAM DESCRIPTION: RAD - Chest Pa And Lat (2 Views) - 01/04/2021 2:30 pm CLINICAL HISTORY: pneumonia COMPARISON: December 27 two view chest, December 21 CT chest TECHNIQUE: Frontal and lateral views of the chest were obtained. FINDINGS: The lungs are extensively fibrotic, hyper expanded and with lobulated, flattened diaphragm . Prominent focal parenchymal stranding seen in the lower posterior left lung field. The does appear to be a slight amount of interval improvement since December 27. There is questionable cavitary focus within the superolateral aspect of the lower left lung disease. No progressive process. Right lung fi eld remains clear. Heart size is normal and central vasculature is within normal limits. No pleural effusion or pneumo thorax seen. No acute bony finding noted. No aortic abnormality. IMPRESSION: Extensive posterior lower left lung field disease showing a slight improvement from .
[2021-01-05] MEDS: TRAMADOL HCL 50 MG TAB PO PRN (07:57)
[2021-01-05] MEDS: LIDOCAINE 4% PATCH TOP SCH (07:57)
[2021-01-05] MEDS: MONTELUKAST 10 MG TAB PO SCH (07:57)
[2021-01-05] MEDS: levoFLOXacin 500 MG TAB PO SCH (07:57)
[2021-01-05] MEDS: predniSONE 20 MG TAB PO SCH (07:59)
[2021-01-05] MEDS: buPROPion HCL 100 MG TAB PO SCH (07:59)
[2021-01-05] MEDS: METOPROLOL TAR 25 MG TAB PO SCH ×2 (08:00→19:16)
[2021-01-05] MEDS: AMLODIPINE 2.5 MG TAB PO SCH (08:00)
[2021-01-05] MEDS: ENSURE ENLIVE 237 ML CAN PO SCH ×2 (08:03→19:17)
--- NOTE | 2021-01-05 09:07 | PN ---
Date of Progress Note: 01/04/2021 Subjective: The patient was seen this morning for followup. No new complaints or problems reported. She was lying in bed, not in distress. Objective: Vital Signs: Reviewed. HEENT: Unremarkable. Lungs: Clear to auscultation. Heart: Sounds normal. Abdomen: Soft. Bowel sounds normal. No guarding, rigidity, tenderness, or distention. Extremities: No leg edema. Laboratory Data: Chest x-ray will be done today. Impression: 1.Pneumonia. 2.Chronic obstructive pulmonary disease. 3.Generalized weakness. 4.Debility. Plan: We will go ahead and continue current medications, continue antibiotics. We will follow up on chest x-ray result. Continue physical therapy under guidance of Dr. Conti. I will see her tomcathy de leon for followup. YOSVANY/MODL Voice ID: [id number] Report ID: [id number]
[2021-01-05] MEDS: ENOXAPARIN 30 MG/0.3 ML SQ SCH (16:30)
--- NOTE | 2021-01-05 17:10 | R.PN ---
PROGRESS NOTES ENCOUNTER DATE AND TIME: 01/05/2021 17:06 (CDT) NAME KAYLIE ARTHUR DATE OF : 1940 DATE OF ADMISSION: 12/29/2020 15:46 (CDT) Acute on Chronic COPD exacerbation with pneumonia and subsequent weaknessCHIEF COMPLAINT: COPD exacerbation and debility SUBJECTIVE: Pt denied any depression. Pt denied any Shortness of Breath. She is doing well with physical and occupational therapy. Her blood work is stable. Pain is well managed. She is making good overall progress with physical and occupational therapy. She has improved shortness of breath with oxygen via nasal cannula. WBC improved to 14.8 from 21.2. On levaquin 500 mg daily. Ambulated 600' and mobilized wheelchair 500' with standby assistance. Ambulated 250 feet x 3 with standby assistance using a rolling walker and 15 steps with contact guard assistance. VITAL SIGNS Temperature: 97.43 F SBP/DBP: 137/76 Pulse: 80 Resp: 16 MEDICATION ALLERGIES: No Known Drug Allergies (NKDA) ENVIRONMENTAL ALLERGIES: - Substance Allergies None Known - Other Allergies None Known NURSING: - Shower allowing shower ACTIVITIES OOB only with supervision THERAPIES: - Dietary and Nutrition Adequate Nutrition. Nutritional Education. Nutritional Supplements. - Occupational Therapy Cognitive Retraining. Visual Perceptual Training. - Speech Therapy Cognitive Training. Expressive Language Skills. Memory Strategies. Receptive Language Skills. Speech Intelligibility Training. PHYSICAL EXAM - Gen Alert and awake Lying in bed No apparent distress Oriented to: person, time, and place - Skin No breakdown No abnormalities - Eyes No abnormalities - ENMT No abnormalities - Neck No abnormalities - CVS RRR - Chest Mildly decreased breath sounds bilaterally. - Abd Soft - GI + bowel sounds Deferred - No abnormalities - Ext No significant edema - MSK 4/5 weakness in both lower extremities. - Neuro No focal deficits - Psych No abnormalities ASSESSMENT: Pt. is a 80 yo Right-handed female of unknown race.On 12/21/2020 she was admitted to [facility] with diagnosis Acute on Chronic COPD exacerbation with pneumonia and subsequent weak ness.Her impairment category is Pulmonary Disorders 10 - Chronic Obstructive Pulmonary Disease (10.1 ).Pre-morbidly, Pt. was independent/mod-I in Locomotion and Self-Care; and she had good Sphincter Con trol, Transfers Control, and Balance.Currently, she has deficits of Locomotion, Balance, Transfers Co ntrol, Endurance, Self-Care, and Safety Awareness.Pt. is now referred to [facility] for acute in-patient rehabilitation in order to maximize patient's functional independence in a ctivities of daily living, strength, ROM, and mobility.- Rehab Goal Patient has realistic goal of being discharged at assistance level 7-Ind to reside at Home with Fami ly/Relatives. MDM/PLAN: - Physical Therapy Gait dysfunction - to improve, our physical therapists will perform initial evaluation of pt's statu s upon admission and devise an individualized program for Gait Training, and Wheel Chair mobility Inability to transfer - to improve, our physical therapists will perform initial evaluation of pt's status upon admission and devise an individualized program for Bed mobility Need for home safety evaluation - to improve, our physical therapists will perform initial evaluatio n of pt's status upon admission and devise an individualized program for Home Evaluation Need in caregiver upon discharge - to improve, our physical therapists will perform initial evaluati on of pt's status upon admission and devise an individualized program for Caregiver Training New precaution - to improve, our physical therapists will perform initial evaluation of pt's status upon admission and devise an individualized program for Patient precaution education Edema - to improve, our physical therapists will perform initial evaluation of pt's status upon admi ssion and devise an individualized program for Elevation Training, and Lymphedema Therapy Poor balance - to improve, our physical therapists will perform initial evaluation of pt's status up on admission and devise an individualized program for Balance Training Poor endurance - to improve, our physical therapists will perform initial evaluation of pt's status upon admission and devise an individualized program for Endurance Training Weakness - to improve, our physical therapists will perform initial evaluation of pt's status upon a dmission and devise an individualized program for Aquatic Therapy, Neuromuscular Reeducation, and Str engthening Achieving independence - to improve, our physical therapists will perform initial evaluation of pt's status upon admission and devise an individualized program for Community Reintegration Activities - Occupational Therapy ADL deficits - to improve, our occupation therapists will perform initial evaluation of pt's status upon admission and devise an individualized program for Bathing, Bed mobility, Community Reintegratio n, Cooking, Dressing, Eating, Fine Motor Skills, Grooming, Homemaking, Kitchen Mobility, Laundry, Pat ient Education, Safety Awareness, Splinting - Positioning, Transfers(Toilet, Tub, Shower), and Wheel Chair Management Need for home care and home health aides teacher - to improve, our occupation therapists will perform initial evaluation of pt's status upon admission and devise an individualized program for Caregiver Training Weakness - to improve, our occupation therapists will perform initial evaluation of pt's status upon admission and devise an individualized program for Aquatic Therapy, Balance, Endurance, UE ROM, and UE strengthening - Other See attached MAR (Medication Administration Record) - Diet Type Continue Regular - Diet - Liquid Texture Continue Regular - Tube Feed Continue N/A - Diet - Solid Texture Continue Regular - Shower allowing shower FUNCTIONAL STATUS: UPDATED AT WEEKLY TEAM CONFERENCE - Bladder Same accident frequency: 7-Ind - No accidents in the past 7 days - Bowel Same accident frequency: 7-Ind - No accidents in the past 7 days - Walking Same score based on distance walked: 0(N/A) Same score based on distance walked: 3(>=150ft) - Wheelchair Same score based on distance traveled: 0(N/A) FUNCTIONAL STATUS: - Self-Care A. Eating Alissa B. Grooming sup C. Bathing sup D. Dressing - Upper Natalie E. Dressing - Lower Natalie F. Toileting Natalie - Sphincter Control G. Bladder control Natalie H. Bowel control Natalie - Transfers Control I. Bed/Chair/Wheelchair Natalie J. Toilet Natalie K. Tub/Shower modA - Locomotion L. Walk/Wheelchair (B) Natalie M. Stairs Natalie - Communication N. Comprehension (B) Natalie O. Expression (B) Natalie - Social Cognition P. Social Interaction sup Q. Problem Solving sup R. Memory Alissa - Endurance Fair - Balance Fair - Safety Awareness Fair QI SCORES: - Self-Care A. Eating 05-Setup or clean-up assistance B. Oral hygiene 05-Setup or clean-up assistance C. Toileting hygiene 04-Supervision or touching assistance E. Shower/bathe self 03-Partial/moderate assistance F. Upper body dressing 04-Supervision or touching assistance G. Lower body dressing 03-Partial/moderate assistance H. Putting on/taking off footwear 03-Partial/moderate assistance - Mobility A. Roll left and right 04-Supervision or touching assistance B. Sit to lying 04-Supervision or touching assistance C. Lying to sitting on side of bed 04-Supervision or touching assistance D. Sit to stand 04-Supervision or touching assistance E. Chair/[id number] transfer 04-Supervision or touching assistance F. Toilet transfer 04-Supervision or touching assistance G. Car transfer 88-Not attempted due to medical condition or safety concerns I. Walk 10 feet 04-Supervision or touching assistance J. Walk 50 feet with two turns 04-Supervision or touching assistance K. Walk 150 feet 04-Supervision or touching assistance L. Walking 10 feet on uneven surfaces 88-Not attempted due to medical condition or safety concerns M. 1 step (curb) 88-Not attempted due to medical condition or safety concerns N. 4 steps 88-Not attempted due to medical condition or safety concerns O. 12 steps 88-Not attempted due to medical condition or safety concerns P. Picking up object 88-Not attempted due to medical condition or safety concerns R. Wheel 50 feet with two turns S. Wheel 150 feet - Bladder and Bowel Bladder continence Bowel continence 9-Not rated - Endurance Fair - Balance Poor - Safety Awareness Fair [facility] DEFICITS: Self-Care, Mobility, Endurance, Balance, and Safety Awareness SIGNATURE PANEL: (CDT)
[2021-01-05] MEDS: DONEPEZIL HCL 5 MG TAB PO SCH (19:15)
[2021-01-05] MEDS: ROPINIROLE HCL 0.25 MG TAB PO SCH (19:15)
[2021-01-06] MEDS: PIPER/TAZO/NS 3.375gm 3.375 GM/100 ML BAG IVPB SCH ×3 (00:51→15:57)
[2021-01-06] MEDS: IPRATROPIUM BROM 0.5MG/2.5ML NEB SCH ×5 (01:17→21:11)
[2021-01-06] MEDS: ALBUTEROL 2.5 MG/3 ML NEB SOL NEB SCH ×5 (01:18→21:11)
[2021-01-06] MEDS ORDERED: NA CHLORIDE 0.9% 250 ML ONE (01:19)
--- NOTE | 2021-01-06 06:16 | PN ---
Date of Progress Note: 01/05/2021 Subjective: The patient was seen this morning for followup. No new complaints or problems reported. She was sitting in bed, not in distress. Denies any new complaints. On nasal cannula oxygen about 2.5 L/minute. Objective: Vital signs: Reviewed. HEENT: Unremarkable. Lungs: Clear to auscultation. Cardiac: Heart sounds normal. Abdomen: Soft, bowel sounds normal. No guarding, rigidity, tenderness, or distention. Extremities: No leg edema. Impression: 1.Pneumonia. 2.Chronic obstructive pulmonary disease. 3.Chronic respiratory failure with hypoxia and hypercapnia. Plan: We will continue current medication. Continue current oxygen replacement therapy, antibiotics . Yesterday's chest x-ray results reviewed. The patient has some soft to loose bowel movement after each meals for about 2-3 times a day since she has been on antibiotics. No need for further interve ntion and that is expected to resolve after we stop antibiotics. We will consider stopping antibioti cs sometime this week. Continue current prednisone and continue physical therapy under guidance of Josué Conti. YOSVANY/MODL Voice ID: [id number] Report ID: [id number]
[2021-01-06] MEDS: TRAMADOL HCL 50 MG TAB PO PRN (07:15)
[2021-01-06] MEDS: MONTELUKAST 10 MG TAB PO SCH (07:42)
[2021-01-06] MEDS: AMLODIPINE 2.5 MG TAB PO SCH (07:43)
[2021-01-06] MEDS: predniSONE 20 MG TAB PO SCH (07:43)
[2021-01-06] MEDS: levoFLOXacin 500 MG TAB PO SCH (07:43)
[2021-01-06] MEDS: METOPROLOL TAR 25 MG TAB PO SCH ×2 (07:44→19:28)
[2021-01-06] MEDS: buPROPion HCL 100 MG TAB PO SCH (07:48)
[2021-01-06] MEDS: ENSURE ENLIVE 237 ML CAN PO SCH ×2 (07:51→19:28)
[2021-01-06] MEDS: BUDESONIDE 0.25 MG/2 ML NEB NEB SCH ×2 (08:45→21:11)
[2021-01-06] MEDS: LIDOCAINE 4% PATCH TOP SCH (10:10)
[2021-01-06] MEDS: ENOXAPARIN 30 MG/0.3 ML SQ SCH (15:56)
[2021-01-06] MEDS: ROPINIROLE HCL 0.25 MG TAB PO SCH (19:28)
[2021-01-06] MEDS: DONEPEZIL HCL 5 MG TAB PO SCH (19:28)
--- NOTE | 2021-01-06 19:36 | R.PN ---
PROGRESS NOTES ENCOUNTER DATE AND TIME: 01/06/2021 19:33 (CDT) NAME KAYLIE ARTHUR DATE OF : 1940 DATE OF ADMISSION: 12/29/2020 15:46 (CDT) Acute on Chronic COPD exacerbation with pneumonia and subsequent weaknessCHIEF COMPLAINT: COPD exacerbation and debility SUBJECTIVE: Pt denied any depression. Pt denied any Shortness of Breath. She is doing well with physical and occupational therapy. Her blood work is stable. Pain is well managed. She is making good overall progress with physical and occupational therapy. She has improved shortness of breath with oxygen via nasal cannula. WBC improved to 14.8 from 21.2. On levaquin 500 mg daily. Ambulated 1000' with standby assistance using a rollator. Ambulated 250 feet x 3 with standby assistance using a rolling walker and 15 steps with contact guard assistance. VITAL SIGNS Temperature: 97.4 F SBP/DBP: 130/70 Pulse: 66 Resp: 16 MEDICATION ALLERGIES: No Known Drug Allergies (NKDA) ENVIRONMENTAL ALLERGIES: - Substance Allergies None Known - Other Allergies None Known NURSING: - Shower allowing shower ACTIVITIES OOB only with supervision THERAPIES: - Dietary and Nutrition Adequate Nutrition. Nutritional Education. Nutritional Supplements. - Occupational Therapy Cognitive Retraining. Visual Perceptual Training. - Speech Therapy Cognitive Training. Expressive Language Skills. Memory Strategies. Receptive Language Skills. Speech Intelligibility Training. PHYSICAL EXAM - Gen Alert and awake Lying in bed No apparent distress Oriented to: person, time, and place - Skin No breakdown No abnormalities - Eyes No abnormalities - ENMT No abnormalities - Neck No abnormalities - CVS RRR - Chest Mildly decreased breath sounds bilaterally. - Abd Soft - GI + bowel sounds Deferred - No abnormalities - Ext No significant edema - MSK 4/5 weakness in both lower extremities. - Neuro No focal deficits - Psych No abnormalities ASSESSMENT: Pt. is a 80 yo Right-handed female of unknown race.On 12/21/2020 she was admitted to [facility] with diagnosis Acute on Chronic COPD exacerbation with pneumonia and subsequent weak ness.Her impairment category is Pulmonary Disorders 10 - Chronic Obstructive Pulmonary Disease (10.1 ).Pre-morbidly, Pt. was independent/mod-I in Locomotion and Self-Care; and she had good Sphincter Con trol, Transfers Control, and Balance.Currently, she has deficits of Locomotion, Balance, Transfers Co ntrol, Endurance, Self-Care, and Safety Awareness.Pt. is now referred to [facility] for acute in-patient rehabilitation in order to maximize patient's functional independence in a ctivities of daily living, strength, ROM, and mobility.- Rehab Goal Patient has realistic goal of being discharged at assistance level 7-Ind to reside at Home with Fami ly/Relatives. MDM/PLAN: - Physical Therapy Gait dysfunction - to improve, our physical therapists will perform initial evaluation of pt's statu s upon admission and devise an individualized program for Gait Training, and Wheel Chair mobility Inability to transfer - to improve, our physical therapists will perform initial evaluation of pt's status upon admission and devise an individualized program for Bed mobility Need for home safety evaluation - to improve, our physical therapists will perform initial evaluatio n of pt's status upon admission and devise an individualized program for Home Evaluation Need in caregiver upon discharge - to improve, our physical therapists will perform initial evaluati on of pt's status upon admission and devise an individualized program for Caregiver Training New precaution - to improve, our physical therapists will perform initial evaluation of pt's status upon admission and devise an individualized program for Patient precaution education Edema - to improve, our physical therapists will perform initial evaluation of pt's status upon admi ssion and devise an individualized program for Elevation Training, and Lymphedema Therapy Poor balance - to improve, our physical therapists will perform initial evaluation of pt's status up on admission and devise an individualized program for Balance Training Poor endurance - to improve, our physical therapists will perform initial evaluation of pt's status upon admission and devise an individualized program for Endurance Training Weakness - to improve, our physical therapists will perform initial evaluation of pt's status upon a dmission and devise an individualized program for Aquatic Therapy, Neuromuscular Reeducation, and Str engthening Achieving independence - to improve, our physical therapists will perform initial evaluation of pt's status upon admission and devise an individualized program for Community Reintegration Activities - Occupational Therapy ADL deficits - to improve, our occupation therapists will perform initial evaluation of pt's status upon admission and devise an individualized program for Bathing, Bed mobility, Community Reintegratio n, Cooking, Dressing, Eating, Fine Motor Skills, Grooming, Homemaking, Kitchen Mobility, Laundry, Pat ient Education, Safety Awareness, Splinting - Positioning, Transfers(Toilet, Tub, Shower), and Wheel Chair Management Need for school child care attendant - to improve, our occupation therapists will perform initial evaluation of pt's status upon admission and devise an individualized program for Caregiver Training Weakness - to improve, our occupation therapists will perform initial evaluation of pt's status upon admission and devise an individualized program for Aquatic Therapy, Balance, Endurance, UE ROM, and UE strengthening - Other See attached MAR (Medication Administration Record) - Diet Type Continue Regular - Diet - Liquid Texture Continue Regular - Tube Feed Continue N/A - Diet - Solid Texture Continue Regular - Shower allowing shower FUNCTIONAL STATUS: UPDATED AT WEEKLY TEAM CONFERENCE - Bladder Same accident frequency: 7-Ind - No accidents in the past 7 days - Bowel Same accident frequency: 7-Ind - No accidents in the past 7 days - Walking Same score based on distance walked: 0(N/A) Same score based on distance walked: 3(>=150ft) - Wheelchair Same score based on distance traveled: 0(N/A) FUNCTIONAL STATUS: - Self-Care A. Eating Alissa B. Grooming sup C. Bathing sup D. Dressing - Upper Natalie E. Dressing - Lower Natalie F. Toileting Natalie - Sphincter Control G. Bladder control Natalie H. Bowel control Natalie - Transfers Control I. Bed/Chair/Wheelchair Natalie J. Toilet Natalie K. Tub/Shower modA - Locomotion L. Walk/Wheelchair (B) Natalie M. Stairs Natalie - Communication N. Comprehension (B) Natalie O. Expression (B) Natalie - Social Cognition P. Social Interaction sup Q. Problem Solving sup R. Memory Alissa - Endurance Fair - Balance Fair - Safety Awareness Fair QI SCORES: - Self-Care A. Eating 05-Setup or clean-up assistance B. Oral hygiene 05-Setup or clean-up assistance C. Toileting hygiene 04-Supervision or touching assistance E. Shower/bathe self 03-Partial/moderate assistance F. Upper body dressing 04-Supervision or touching assistance G. Lower body dressing 03-Partial/moderate assistance H. Putting on/taking off footwear 03-Partial/moderate assistance - Mobility A. Roll left and right 04-Supervision or touching assistance B. Sit to lying 04-Supervision or touching assistance C. Lying to sitting on side of bed 04-Supervision or touching assistance D. Sit to stand 04-Supervision or touching assistance E. Chair/[id number] transfer 04-Supervision or touching assistance F. Toilet transfer 04-Supervision or touching assistance G. Car transfer 88-Not attempted due to medical condition or safety concerns I. Walk 10 feet 04-Supervision or touching assistance J. Walk 50 feet with two turns 04-Supervision or touching assistance K. Walk 150 feet 04-Supervision or touching assistance L. Walking 10 feet on uneven surfaces 88-Not attempted due to medical condition or safety concerns M. 1 step (curb) 88-Not attempted due to medical condition or safety concerns N. 4 steps 88-Not attempted due to medical condition or safety concerns O. 12 steps 88-Not attempted due to medical condition or safety concerns P. Picking up object 88-Not attempted due to medical condition or safety concerns R. Wheel 50 feet with two turns S. Wheel 150 feet - Bladder and Bowel Bladder continence Bowel continence 9-Not rated - Endurance Fair - Balance Poor - Safety Awareness Fair [facility] DEFICITS: Self-Care, Mobility, Endurance, Balance, and Safety Awareness SIGNATURE PANEL: (CDT)
[2021-01-07] MEDS: PIPER/TAZO/NS 3.375gm 3.375 GM/100 ML BAG IVPB SCH ×3 (00:07→17:16)
[2021-01-07] MEDS: ALBUTEROL 2.5 MG/3 ML NEB SOL NEB SCH ×4 (02:30→20:40)
[2021-01-07] MEDS: IPRATROPIUM BROM 0.5MG/2.5ML NEB SCH ×4 (02:30→20:40)
[2021-01-07] MEDS: LIDOCAINE 4% PATCH TOP SCH (06:33)
[2021-01-07] MEDS: TRAMADOL HCL 50 MG TAB PO PRN (07:10)
[2021-01-07 07:20] LABS: Absolute Lymphocytes (CBC) 1.9 K/uL (0.7-4.9); Basophils % 0.4 % (0-1.3); Hematocrit 31.7 % (36.0-45.0); Lymphocytes % 15.5 % (15.3-44.8); MPV 6.6 fL (7.6-11.3); RBC Red Blood Cell Count 3.46 M/uL (3.86-4.86)
[2021-01-07 07:35] LABS: Albumin 2.7 g/dL (3.4-5.0); BUN Blood Urea Nitrogen 17 mg/dL (7-18); Bicarbonate 35 mmol/L (21-32); Glucose Level 70 mg/dL (74-106); Magnesium 2.1 mg/dL (1.8-2.4); Sodium Level 136 mmol/L (136-145)
[2021-01-07] MEDS: AMLODIPINE 2.5 MG TAB PO SCH (07:45)
[2021-01-07] MEDS: MONTELUKAST 10 MG TAB PO SCH (07:45)
[2021-01-07] MEDS: METOPROLOL TAR 25 MG TAB PO SCH ×2 (07:46→19:46)
[2021-01-07] MEDS: predniSONE 10 MG TAB PO SCH (07:48)
[2021-01-07] MEDS: levoFLOXacin 500 MG TAB PO SCH (07:48)
[2021-01-07] MEDS: ENSURE ENLIVE 237 ML CAN PO SCH ×2 (07:48→19:46)
[2021-01-07] MEDS: buPROPion HCL 100 MG TAB PO SCH (07:49)
--- NOTE | 2021-01-07 08:20 | PN ---
Date of Progress Note: 01/06/2021 Subjective: Patient was seen this morning for followup. She was lying in bed, not in distress. No new complaints or problems reported. Objective: Vital Signs: Reviewed. HEENT: Unremarkable. Lungs: Clear to auscultation. Heart: Heart sounds normal. Abdomen: Soft, bowel sounds normal. No guarding, rigidity, tenderness, distention. Extremities: No leg edema. Impression: 1.Pneumonia. 2.Chronic obstructive pulmonary disease. 3.Generalized weakness. 4.Debility. Plan: The patient improving very well with physical therapy. We will continue that per guidance of Dr. Conti. Continue prednisone, but reduce dose to 10 mg daily. Continue current antibiotics. I will see her tomorrow for followup. YOSVANY/MODL Voice ID: [id number] Report ID: [id number]
[2021-01-07] MEDS: BUDESONIDE 0.25 MG/2 ML NEB NEB SCH ×2 (08:40→20:40)
[2021-01-07] MEDS: ENOXAPARIN 30 MG/0.3 ML SQ SCH (17:16)
--- NOTE | 2021-01-07 18:11 | R.PN ---
PROGRESS NOTES ENCOUNTER DATE AND TIME: 01/07/2021 17:59 (CDT) NAME KAYLIE ARTHUR DATE OF : 1940 DATE OF ADMISSION: 12/29/2020 15:46 (CDT) Acute on Chronic COPD exacerbation with pneumonia and subsequent weaknessCHIEF COMPLAINT: COPD exacerbation and debility SUBJECTIVE: Pt denied any depression. Pt denied any Shortness of Breath. She is doing well with physical and occupational therapy. Her blood work is stable. Pain is well managed. She is making good overall progress with physical and occupational therapy. She has improved shortness of breath with oxygen 2-3 L via nasal cannula. WBC is increased to 12.6. Hgb 10.5, Na 136, Waiter/Waitress Buffet 0.48, prealbumin 27.0. On levaquin 500 mg daily start ed 12/30/20 for 7 days. Ambulated 1000' with modified independence using a rollator. VITAL SIGNS Temperature: 97.0 F SBP/DBP: 149/81 Pulse: 68 Resp: 16 MEDICATION ALLERGIES: No Known Drug Allergies (NKDA) ENVIRONMENTAL ALLERGIES: - Substance Allergies None Known - Other Allergies None Known NURSING: - Shower allowing shower ACTIVITIES OOB only with supervision THERAPIES: - Dietary and Nutrition Adequate Nutrition. Nutritional Education. Nutritional Supplements. - Occupational Therapy Cognitive Retraining. Visual Perceptual Training. - Speech Therapy Cognitive Training. Expressive Language Skills. Memory Strategies. Receptive Language Skills. Speech Intelligibility Training. PHYSICAL EXAM - Gen Alert and awake Lying in bed No apparent distress Oriented to: person, time, and place - Skin No breakdown No abnormalities - Eyes No abnormalities - ENMT No abnormalities - Neck No abnormalities - CVS RRR - Chest Mildly decreased breath sounds bilaterally. - Abd Soft - GI + bowel sounds Deferred - No abnormalities - Ext No significant edema - MSK 4/5 weakness in both lower extremities. - Neuro No focal deficits - Psych No abnormalities ASSESSMENT: Pt. is a 80 yo Right-handed female of unknown race.On 12/21/2020 she was admitted to [facility] with diagnosis Acute on Chronic COPD exacerbation with pneumonia and subsequent weak ness.Her impairment category is Pulmonary Disorders 10 - Chronic Obstructive Pulmonary Disease (10.1 ).Pre-morbidly, Pt. was independent/mod-I in Locomotion and Self-Care; and she had good Sphincter Con trol, Transfers Control, and Balance.Currently, she has deficits of Locomotion, Balance, Transfers Co ntrol, Endurance, Self-Care, and Safety Awareness.Pt. is now referred to [facility] for acute in-patient rehabilitation in order to maximize patient's functional independence in a ctivities of daily living, strength, ROM, and mobility.- Rehab Goal Patient has realistic goal of being discharged at assistance level 7-Ind to reside at Home with Fami ly/Relatives. MDM/PLAN: - Physical Therapy Gait dysfunction - to improve, our physical therapists will perform initial evaluation of pt's statu s upon admission and devise an individualized program for Gait Training, and Wheel Chair mobility Inability to transfer - to improve, our physical therapists will perform initial evaluation of pt's status upon admission and devise an individualized program for Bed mobility Need for home safety evaluation - to improve, our physical therapists will perform initial evaluatio n of pt's status upon admission and devise an individualized program for Home Evaluation Need in caregiver upon discharge - to improve, our physical therapists will perform initial evaluati on of pt's status upon admission and devise an individualized program for Caregiver Training New precaution - to improve, our physical therapists will perform initial evaluation of pt's status upon admission and devise an individualized program for Patient precaution education Edema - to improve, our physical therapists will perform initial evaluation of pt's status upon admi ssion and devise an individualized program for Elevation Training, and Lymphedema Therapy Poor balance - to improve, our physical therapists will perform initial evaluation of pt's status up on admission and devise an individualized program for Balance Training Poor endurance - to improve, our physical therapists will perform initial evaluation of pt's status upon admission and devise an individualized program for Endurance Training Weakness - to improve, our physical therapists will perform initial evaluation of pt's status upon a dmission and devise an individualized program for Aquatic Therapy, Neuromuscular Reeducation, and Str engthening Achieving independence - to improve, our physical therapists will perform initial evaluation of pt's status upon admission and devise an individualized program for Community Reintegration Activities - Occupational Therapy ADL deficits - to improve, our occupation therapists will perform initial evaluation of pt's status upon admission and devise an individualized program for Bathing, Bed mobility, Community Reintegratio n, Cooking, Dressing, Eating, Fine Motor Skills, Grooming, Homemaking, Kitchen Mobility, Laundry, Pat ient Education, Safety Awareness, Splinting - Positioning, Transfers(Toilet, Tub, Shower), and Wheel Chair Management Need for rn care manager - to improve, our occupation therapists will perform initial evaluation of pt's status upon admission and devise an individualized program for Caregiver Training Weakness - to improve, our occupation therapists will perform initial evaluation of pt's status upon admission and devise an individualized program for Aquatic Therapy, Balance, Endurance, UE ROM, and UE strengthening - Other See attached MAR (Medication Administration Record) - Diet Type Continue Regular - Diet - Liquid Texture Continue Regular - Tube Feed Continue N/A - Diet - Solid Texture Continue Regular - Shower allowing shower FUNCTIONAL STATUS: UPDATED AT WEEKLY TEAM CONFERENCE - Bladder Same accident frequency: 7-Ind - No accidents in the past 7 days - Bowel Same accident frequency: 7-Ind - No accidents in the past 7 days - Walking Same score based on distance walked: 0(N/A) Same score based on distance walked: 3(>=150ft) - Wheelchair Same score based on distance traveled: 0(N/A) FUNCTIONAL STATUS: - Self-Care A. Eating Alissa B. Grooming sup C. Bathing sup D. Dressing - Upper Natalie E. Dressing - Lower Natalie F. Toileting Natalie - Sphincter Control G. Bladder control Natalie H. Bowel control Natalie - Transfers Control I. Bed/Chair/Wheelchair Natalie J. Toilet Natalie K. Tub/Shower modA - Locomotion L. Walk/Wheelchair (B) Natalie M. Stairs Natalie - Communication N. Comprehension (B) Natalie O. Expression (B) Natalie - Social Cognition P. Social Interaction sup Q. Problem Solving sup R. Memory Alissa - Endurance Fair - Balance Fair - Safety Awareness Fair QI SCORES: - Self-Care A. Eating 05-Setup or clean-up assistance B. Oral hygiene 05-Setup or clean-up assistance C. Toileting hygiene 04-Supervision or touching assistance E. Shower/bathe self 03-Partial/moderate assistance F. Upper body dressing 04-Supervision or touching assistance G. Lower body dressing 03-Partial/moderate assistance H. Putting on/taking off footwear 03-Partial/moderate assistance - Mobility A. Roll left and right 04-Supervision or touching assistance B. Sit to lying 04-Supervision or touching assistance C. Lying to sitting on side of bed 04-Supervision or touching assistance D. Sit to stand 04-Supervision or touching assistance E. Chair/tqa-vi-zwifl transfer 04-Supervision or touching assistance F. Toilet transfer 04-Supervision or touching assistance G. Car transfer 88-Not attempted due to medical condition or safety concerns I. Walk 10 feet 04-Supervision or touching assistance J. Walk 50 feet with two turns 04-Supervision or touching assistance K. Walk 150 feet 04-Supervision or touching assistance L. Walking 10 feet on uneven surfaces 88-Not attempted due to medical condition or safety concerns M. 1 step (curb) 88-Not attempted due to medical condition or safety concerns N. 4 steps 88-Not attempted due to medical condition or safety concerns O. 12 steps 88-Not attempted due to medical condition or safety concerns P. Picking up object 88-Not attempted due to medical condition or safety concerns R. Wheel 50 feet with two turns S. Wheel 150 feet - Bladder and Bowel Bladder continence Bowel continence 9-Not rated - Endurance Fair - Balance Poor - Safety Awareness Fair [facility] DEFICITS: Self-Care, Mobility, Endurance, Balance, and Safety Awareness SIGNATURE PANEL: (CDT)
[2021-01-07] MEDS: DONEPEZIL HCL 5 MG TAB PO SCH (19:46)
[2021-01-07] MEDS: ROPINIROLE HCL 0.25 MG TAB PO SCH (19:47)
[2021-01-08] MEDS: IPRATROPIUM BROM 0.5MG/2.5ML NEB SCH ×4 (03:00→19:35)
[2021-01-08] MEDS: ALBUTEROL 2.5 MG/3 ML NEB SOL NEB SCH ×4 (03:00→19:35)
[2021-01-08] MEDS: BUDESONIDE 0.25 MG/2 ML NEB NEB SCH ×2 (07:35→20:00)
--- NOTE | 2021-01-08 07:57 | PN ---
Date of Progress Note: 01/07/2021 Subjective: The patient was seen this morning for followup. No new complaints or problems reported. She was sitting in bed. Denied any complaints. Objective: Vital Signs: Reviewed. Her diarrhea is better. HEENT: Unremarkable. Lungs: Clear to auscultation. Heart: Sounds normal. Abdomen: Soft. Bowel sounds normal. No guarding, rigidity, tenderness, or distention. Extremities: No leg edema. Laboratory Data: White count 12.6, hemoglobin 10.5, platelets 390. Sodium 136, potassium 4, chlorid e 100, bicarb 35, BUN 17, creatinine 0.48, glucose 70. Impression: 1.Pneumonia. 2.Chronic obstructive pulmonary disease. 3.Anemia, unspecified. Plan: We will go ahead and continue current medications. The patient is on IV antibiotics, Zosyn. Last dose will be this evening, after that we will discontinue antibiotics. We will continue other c urrent medications. Continue physical therapy per guidance of Dr. Conti. She is on about 3 L bhavani al cannula oxygen, maintaining adequate oxygenation. I will see her tomorrow for followup. YOSVANY/MODL Voice ID: [id number] Report ID: [id number]
[2021-01-08] MEDS: LIDOCAINE 4% PATCH TOP SCH (08:13)
[2021-01-08] MEDS: METOPROLOL TAR 25 MG TAB PO SCH ×2 (08:14→20:22)
[2021-01-08] MEDS: predniSONE 10 MG TAB PO SCH (08:14)
[2021-01-08] MEDS: AMLODIPINE 2.5 MG TAB PO SCH (08:14)
[2021-01-08] MEDS: levoFLOXacin 500 MG TAB PO SCH (08:14)
[2021-01-08] MEDS: buPROPion HCL 100 MG TAB PO SCH (08:15)
[2021-01-08] MEDS: MONTELUKAST 10 MG TAB PO SCH (08:15)
[2021-01-08] MEDS: ENSURE ENLIVE 237 ML CAN PO SCH ×2 (08:16→20:21)
--- NOTE | 2021-01-08 09:54 | P.RH.PN ---
Estimated Length of Stay: 11 Expected Discharge Date: 01/09/21 Discharge Disposition Plan: Home Family Support: Yes Fdc Goal: Mobility, Transfers, Self Care Vital Signs: Last Vital Signs Temp 97.0 F 01/08/21 07:25 Pulse 65 01/08/21 08:14 Resp 16 01/08/21 07:25 BP 139/71 01/08/21 08:14 Pulse Ox 97 01/08/21 07:25 Laboratory: Laboratory Last Values WBC 12.60 K/uL (4.3-10.9) H D 01/07/21 06:44 RBC 3.46 M/uL (3.86-4.86) L 01/07/21 06:44 Hgb 10.5 g/dL (12.0-15.0) L 01/07/21 06:44 Hct 31.7 % (36.0-45.0) L 01/07/21 06:44 MCV 91.6 fL (80-100) 01/07/21 06:44 MCH 30.4 pg (27.0-35.0) 01/07/21 06:44 MCHC 33.2 g/dL (32.0-36.0) 01/07/21 06:44 RDW 13.6 % (12.1-15.2) 01/07/21 06:44 Plt Count 390 K/uL (152-406) 01/07/21 06:44 MPV 6.6 fL (7.6-11.3) L 01/07/21 06:44 Neutrophils % 74.8 % (41.7-73.7) H 01/07/21 06:44 Lymphocytes % 15.5 % (15.3-44.8) 01/07/21 06:44 Monocytes % 8.8 % (3.3-12.3) 01/07/21 06:44 Eosinophils % 0.5 % (0-4.4) 01/07/21 06:44 Basophils % 0.4 % (0-1.3) 01/07/21 06:44 Absolute Neutrophils 9.4 K/uL (1.8-8.0) H 01/07/21 06:44 Segmented Neutrophils 86 % (40-80) H 12/31/20 06:20 Absolute Lymphocytes 1.9 K/uL (0.7-4.9) 01/07/21 06:44 Lymphocytes 5 % (15-42) L 12/31/20 06:20 Monocytes 9 % (0-10) 12/31/20 06:20 Absolute Monocytes 1.1 K/uL (0.1-1.3) 01/07/21 06:44 Absolute Eosinophils 0.1 K/uL (0-0.5) 01/07/21 06:44 Absolute Basophils 0.0 K/uL (0-0.5) 01/07/21 06:44 Platelet Estimate Incr 12/31/20 06:20 Giant Platelets Present 12/31/20 06:20 Morphology Comment Not seen (NOT SEEN) 12/31/20 06:20 Sodium 136 mmol/L (136-145) 01/07/21 06:44 Potassium 4.0 mmol/L (3.5-5.1) 01/07/21 06:44 Chloride 100 mmol/L (98-107) 01/07/21 06:44 Carbon Dioxide 35 mmol/L (21-32) H 01/07/21 06:44 BUN 17 mg/dL (7-18) 01/07/21 06:44 Creatinine 0.48 mg/dL (0.55-1.3) L 01/07/21 06:44 Estimated GFR > 90 mL/min (=/>90) 01/07/21 06:44 Glucose 70 mg/dL (74-106) L 01/07/21 06:44 Calcium 8.7 mg/dL (8.5-10.1) 01/07/21 06:44 Magnesium 2.1 mg/dL (1.8-2.4) 01/07/21 06:44 Albumin 2.7 g/dL (3.4-5.0) L 01/07/21 06:44 Prealbumin 27.0 mg/dL (20-40) 01/07/21 06:44 Urine Color Yellow (Yellow) 12/29/20 17:20 Urine Appearance Clear (Clear) 12/29/20 17:20 Urine pH 6.5 (5.0-7.0) 12/29/20 17:20 Ur Specific [place] 1.015 (1.005-1.030) 12/29/20 17:20 Glucose (UA)(Auto) Negative (Negative) 12/29/20 17:20 Urine Ketones Negative (Negative) 12/29/20 17:20 Urine Blood Negative (Negative) 12/29/20 17:20 Urine Nitrite Negative (Negative) 12/29/20 17:20 Urine Bilirubin Negative (Negative) 12/29/20 17:20 Urine Urobilinogen 0.2 mg/dL (0.2-1.0) 12/29/20 17:20 Ur Leukocyte Esterase Negative (Negative) 12/29/20 17:20 Urine RBC None seen /HPF (NONE SEEN) 12/29/20 17:20 Urine WBC <5 /HPF (<5) 12/29/20 17:20 Ur Squamous Epith Cells <5 /HPF (NONE SEEN) 12/29/20 17:20 Urine Bacteria <20 /HPF (<20) 12/29/20 17:20 Urine Culture Reflexed Not needed 12/29/20 17:20 Urine Total Protein Negative (Negative) 12/29/20 17:20 SARS-CoV-2 Rap RNA(RT-PCR) Negative (NEGATIVE) 01/05/21 11:15 Weight: 106 lb Wound Present: No Closed Surgical Incision Present: No Negative Pressure Wound Therapy Present: No Physician Update: Walking 500' modified with rollator. Needs standby assitance for transfers. She is independent with ADLs. She will be discharged home with home health and O2. Comment: bruising noted to right forearm Functional Improvement Occupational Therapy: Pt is making steady progress towards above goals. Activity tolerance limits functional tasks. Continues to require occasional cues for safety during adl transfers and adls. Trialed tandem mill roller for accessing items from floor. Would benefit from continued skilled OT to address above areas as well as endurance building. Summary: Patient's care plan and sql ssrs developer goals have been reviewed and revised as necessary. Please see the Rehabilitation Signature page for all necessary signatures.
[2021-01-08] MEDS: ENOXAPARIN 30 MG/0.3 ML SQ SCH (15:58)
--- NOTE | 2021-01-08 19:07 | PN ---
Date of Progress Note: 01/08/2021 Subjective: The patient was seen this morning for followup. She was sitting in the bed. No new com plaints or problems reported. Objective: Vital Signs: Reviewed. HEENT: Unremarkable. Lungs: Clear to auscultation. Cardiac: Heart sounds normal. Abdomen: Soft. Bowel sounds normal. No guarding, rigidity, tenderness, or distention. Extremities: No leg edema. Impression: 1.Chronic respiratory failure with hypoxia. 2.Generalized weakness. 3.Debility. Plan: We will continue current medications. Continue current prednisone, oxygen nebulizer treatment , and physical therapy under guidance of Dr. Conti. I will see her tomorrow for followup possible discharge to go home tomorrow. YOSVANY/MODL Voice ID: [id number] Report ID: [id number]
[2021-01-08] MEDS: ROPINIROLE HCL 0.25 MG TAB PO SCH (20:24)
[2021-01-08] MEDS: DONEPEZIL HCL 5 MG TAB PO SCH (20:24)
[2021-01-09] MEDS: ALBUTEROL 2.5 MG/3 ML NEB SOL NEB SCH ×2 (01:06→08:00)
[2021-01-09] MEDS: BUDESONIDE 0.25 MG/2 ML NEB NEB SCH ×2 (01:06→08:00)
[2021-01-09] MEDS: IPRATROPIUM BROM 0.5MG/2.5ML NEB SCH ×2 (01:06→08:00)
[2021-01-09 05:45] VITALS: BMI 17.9
[2021-01-09 07:10] VITALS: BP 118/67; TEMP 97.2
[2021-01-09] MEDS: LIDOCAINE 4% PATCH TOP SCH (07:58)
[2021-01-09] MEDS: AMLODIPINE 2.5 MG TAB PO SCH (07:58)
[2021-01-09] MEDS: levoFLOXacin 500 MG TAB PO SCH (07:59)
[2021-01-09] MEDS: MONTELUKAST 10 MG TAB PO SCH (07:59)
[2021-01-09] MEDS: METOPROLOL TAR 25 MG TAB PO SCH (08:10)
[2021-01-09] MEDS: predniSONE 10 MG TAB PO SCH (08:11)
[2021-01-09] MEDS: buPROPion HCL 100 MG TAB PO SCH (08:11)
[2021-01-09] MEDS: ENSURE ENLIVE 237 ML CAN PO SCH (08:12)
[2021-01-09 08:14] VITALS: O2SAT 99
== END 2021-01-09 11:20 | disposition home health service (06) | DRG 190 ==
LOC: 5TH 15:46
PROVIDERS: ADMIT Internal Medicine; ATTEND Psychiatry & Neurology Neurology with Special Qualifications in Child Neurology
DX: J44.0 Chronic obstructive pulmonary disease with (acute) lower respiratory infection (principal); J18.9 Pneumonia, unspecified organism; J96.12 Chronic respiratory failure with hypercapnia; J96.11 Chronic respiratory failure with hypoxia; J44.1 Chronic obstructive pulmonary disease with (acute) exacerbation; D64.9 Anemia, unspecified; R53.1 Weakness; R53.81 Other malaise; I10 Essential (primary) hypertension; Z86.16 Personal history of COVID-19; M81.0 Age-related osteoporosis without current pathological fracture; K57.90 Diverticulosis of intestine, part unspecified, without perforation or abscess without bleeding; E78.5 Hyperlipidemia, unspecified; Z20.822 Contact with and (suspected) exposure to COVID-19
CPT/HCPCS: 36415; 71046; 80048; 81001; 82040; 83735; 84134; 85025; 87086; 87088; 92507; 92523; 94010; 94660; 97110; 97112; 97116; 97127; 97161; 97530; 97542; J0460; J1650; J2543; J7050; J7512; U0003

== ENCOUNTER 2022-02-28 08:02 | Inpatient (IN) | payer OTHER ==
--- OUTSIDE RECORDS SUMMARY | 2022-02-28 08:04 | XMS REPORT | Continuity of Care Document ---
:1940 Author Organization [facility] t Address [address] [place] [address] Care Team Providers Name Role Phone HAWK ALLIE Primary Care Physician Unavailable Yuliet Levin Attending Clinician Unavailable Manny Zapien Attending Clinician Unavailable TAMMIE CAMARENA Attending Clinician Unavailable Jose Kitchen Admitting Clinician Unavailable Payers Payer Name Policy Type Policy Number Effective Date Expiration Date S ource MEDICARE PART A [id number] 2006 AND B 00:00:00 [facility] [id number] 2016 00:00:00 Problems This patient has no known problems. Allergies, Adverse Reactions, Alerts Allergy Allergy Status Severity Reaction(s) Onset Inactive Treating Comm ents Source Name Type Date Date Clinician No Known DA Active [facility] No Known DA Active [facility] 05-27 [facility] Medications This patient has no known medications. Vital Signs Vital Name Observation Time Observation Value Comments Source WEIGHT 2019-12-19 13:43:00 50 kg Procedures This patient has no known procedures. Encounters Start End Encounter Admission Attending Care Care Encounter Source Date/Time Date/Time Type Type Clinicians Facility Department ID 2020-05-27 Inpatient Yuliet Avila [facility] [id number] [facility] 10:00:00 23 [facility] 2019-06-11 Inpatient Curry [facility] [id number] [facility] 11:00:00 Manny 50 [facility] 2019-12-19 2019-12-19 Outpatient TAMMIE GANN MDA, MDA [id number] 10:48:10 23:59:00 Devyn o n 2019-12-19 2019-12-19 Outpatient CURTIS NICOL TAMMIE VELAZQUEZ MDA [id number] 12:26:24 14:37:46 Devyn o n 2019-12-19 2019-12-19 Outpatient TAMMIE GANN CAROLINE VELAZQUEZ [id number] 10:47:56 10:47:56 Devyn o n Results Test Description Test Time Test Comments Results Result Comments Source SURG 2020-06-01 14:59:00 Test Item Value Reference Range Interpretation Comme nts SURG RUN (test DATE: 06/01/20 [facility] - LAB PAGE 1 RUN TIME: 1459 Specimen Inquiry RUN USER: code = INTERFACE SURG) JACOBY T: KAYLIE ARTHUR #: [id number] LOC: [facility] U #: [id number] AGE/SX: 80/F ROOM: RE05/29/20REG DR: uYliet Levin MD : 42 BED: DIS: STATUS: [facility] TLOC: SPEC #: [id number] RECD: STATUS: EDY REQ #: [id number] MAGALI: 05/29/[address]: Yuliet Levin MD ENTER ED: 05/29/20 SP TYPE: SURG OTHR DR: Jose Kitchen MD ORDERED: SURG PATH LVL 4 COPIES TO: Jose Kimbrough MD [address] [place] [address] Yuliet Levin MD [address] [place] [address] HISTOLOGY: TISSUE ID BLK PCS FIORDALIZA LEV PROCEDURE DI SPOSITION ____ ___ ___ ___ RECTUM, NOS A 1 2 PROCEDURES: SURG PATH LVL 4 (05/29/20) TISSUES: A. RECTUM, NOS - RECTAL COLON BIOPSY CLINIC AL HISTORY Z86.0: HX OF POLYP CPT CODES CPT CODE(S): 04219 , , , , , , FINAL DIAGNOSIS Colon, rect um, biopsy: HYPERPLASTIC POLYP GROSS DESCRIPTION Rectal colon biopsy. Received in formalin is a ta n tissue fragment, 0.2 cm, all as A. ba/nr Grossing performed at [facility], [address] [place] [address], [address], [place] [address]. Gis Physical Scientist: Sivakumar Ott M.D. CONTINUED ON NEXT PAGE RUN DATE: 06/01/20 [facility] - LAB PAGE 2 RUN TIME: 1459 Specimen Inquiry RUN USER: INTERFACE SPEC #: [id number] PATIENT: JERSONKAYLIE #[id number] (Continued) ----- MICROSCOPIC DESCRIPTIO N Rectal colon biopsy. Sections demonstrate colonic mucosa with glands demonstrating increased muci n of the stellate architecture. No hyperchromasia and nuclear crowding is present. No dysplasia or malignancy is seen. Signed SIGNATURE ON FILE Yazan Cerna 06/01/20 145 9 END OF REPORT CBC W/AUTO [id number] 06:46:00 Test Item Value Reference Range Interpretation [...] DIFF/SCN CRITERIA = MDIFF) COVID 19 INHOUSE [id number] 12:00:00 Test Item Value Reference Range Interpretation Comments COVID 19 INHOUSE AG NEGATIVE Negative Per manu facturer, (test code = negative result s should [id number]) be treated aspr esumptive and, if inconsi stent with clinical signs andsymptoms or necessary for patient man agement, should betested with an alternative mol ecular assay. Negative resultsdo not preclude SA RS-CoV-2 infection and s hould not be usedas the s ole basis for patient man agement decisions. Nega tive results should be considered in t he context of apatient's r ecent exposures, hist ory, presence of cli nicalsigns and symptoms co nsistent with COVID-19.
[2022-02-28] MEDS ORDERED: LEVALBUTEROL 1.25 MG/3 ML NEB ONE (08:43)
[2022-02-28] MEDS ORDERED: METHYLPREDNISOLONE 125 MG INJ ONE (08:43)
[2022-02-28 09:20] LABS: Absolute Lymphocytes (CBC) 0.9 K/uL (0.7-4.9); Lymphocytes % 6.8 % (15.3-44.8); MCV 93.3 fL (80-100); MPV 9.2 fL (7.6-11.3); RBC Red Blood Cell Count 3.86 M/uL (3.86-4.86)
[2022-02-28 09:21] LABS: Protime INR 1.01
--- NOTE | 2022-02-28 09:26 | RAD REPORT ---
EXAM DESCRIPTION: Sam Single View02/28/2022 9:07 am CLINICAL HISTORY: Shortness of breath COMPARISON: 2020 FINDINGS: The lungs are markedly hyperaerated. Chronic appearing lung opacities. The lungs appear clear of acute infiltrate. The heart is normal size IMPRESSION: Marked COPD without visualization of an acute abnormality
[2022-02-28 09:37] LABS: Albumin 3.3 g/dL (3.4-5.0); Bilirubin Direct 0.2 mg/dL (0-0.2); Bilirubin Total 0.6 mg/dL (0.2-1.0); Potassium 3.7 mmol/L (3.5-5.1); Protein, Total 7.3 g/dL (6.4-8.2); Troponin High Sensitivity 21.9 pg/mL (<58.9)
--- NOTE | 2022-02-28 09:51 | EDPHYS ---
Physician Documentation [facility] Name: Keshia Madsen Age: 81 yrs Sex: Female : 1940 Arrival Date: 02/28/2022 Time: 08:03 Bed 8 Private MD: Víctor Kitchen C ED Physician Germania Fields HPI: 02/28 08:38 This 81 yrs old Female presents to ER via Wheelchair with complaints of COPD jmm Exacerbation. 08:38 The patient has shortness of breath at rest. Onset: The symptoms/episode began/occurred jmm gradually, 2 day(s) ago. Duration: The symptoms are continuous. This is an 81 year old female with a history of copd, hlp, that presents to the ED with complaints of cough, sob she attributes to copd. Denies fever, chest pain. . Historical: - Allergies: 08:38 No Known Allergies; iw - PMHx: 08:38 COPD; High Cholesterol; stapholococcal pneumonia; iw - Immunization history:: Client reports receiving the 2nd dose of the Covid vaccine. - Social history:: Smoking status: Patient reports the use of cigarette tobacco products, smokes one-half pack cigarettes per day. ROS: 08:38 Constitutional: Positive for body aches. jmm 08:38 Respiratory: Positive for shortness of breath. 08:38 All other systems are negative. Exam: 08:38 Constitutional: This is a well developed, well nourished patient who is awake, alert, jmm and in no acute distress. Head/Face: atraumatic. Eyes: EOMI, no conjunctival erythema appreciated ENT: Moist Mucus Membranes Neck: Trachea midline, Supple Chest/axilla: Normal chest wall appearance and motion. Cardiovascular: Regular rate and rhythm. No edema appreciated 08:38 Back: Normal ROM Skin: General appearance color normal MS/ Extremity: Moves all extremities, no obvious deformities appreciated, no edema noted to the lower extremities Neuro: Awake and alert Psych: Behavior is normal, Mood is normal, Patient is cooperative and pleasant 08:38 Respiratory: mild respiratory distress is noted, Respirations: labored breathing, that is mild, Breath sounds: decreased breath sounds, that are moderate, are heard in the right upper lobe, left upper lobe, right middle lobe, left lower lobe, left posterior upper lobe, right posterior upper lobe, left posterior lower lobe and right posterior middle lobe, wheezing: that is mild, is scattered. Vital Signs: 08:36 BP 125 / 85; Pulse 78; Resp 24 S; Temp 98.0(O); Pulse Ox 87% on 3 lpm NC; Weight 54.43 iw kg; Height 5 ft. 3 in. (160.02 cm); 11:50 BP 103 / 51; Pulse 77; Resp 22; Pulse Ox 93% on 3 lpm NC; ll1 08:36 Body Mass Index 21.26 (54.43 kg, 160.02 cm) iw MDM: 08:37 Patient medically screened. [facility] 09:47 Data reviewed: vital signs, nurses notes. Counseling: I had a detailed discussion with slim the patient and/or guardian regarding: the historical points, exam findings, and any diagnostic results supporting the discharge/admit diagnosis, lab results, radiology results, the need for further work-up and treatment in the hospital. ED course: I discussed the patient with Dr. Kitchen whom recommends inpatient care. Will admit to his service. . 02/28 08:37 Order name: Basic Metabolic Panel [facility] 02/28 08:37 Order name: CBC with Diff [facility] 02/28 08:37 Order name: Troponin HS [facility] 02/28 08:43 Order name: Lactate [facility] 02/28 08:43 Order name: PT-INR [facility] 02/28 08:43 Order name: Hepatic Function [facility] 02/28 08:45 Order name: Blood Culture Adult (2) [facility] 02/28 08:52 Order name: SARS RAPID; Complete Time: 11:05 [facility] 02/28 09:21 Order name: Protime (+INR) [facility] 02/28 09:22 Order name: CBC with Automated Diff [facility] 02/28 09:35 Order name: Lactate [facility] 02/28 09:37 Order name: Basic Metabolic Panel [facility] 02/28 09:37 Order name: Troponin High Sensitivity [facility] 02/28 09:37 Order name: Liver (Hepatic) Function [facility] 02/28 08:37 Order name: XRAY Chest (1 view) [facility] 02/28 08:37 Order name: EKG; Complete Time: 08:38 [facility] 02/28 08:37 Order name: Cardiac monitoring; Complete Time: 09:26 [facility] 02/28 08:37 Order name: EKG - Nurse/Tech; Complete Time: 09:26 [facility] 02/28 08:45 Order name: BIPAP [facility] 02/28 09:27 Order name: RAD [facility] 02/28 10:41 Order name: Heart Healthy [facility] 02/28 10:41 Order name: Basic Metabolic Panel [facility] 02/28 10:41 Order name: Basic Metabolic Panel [facility] 02/28 10:41 Order name: CBC with Automated Diff [facility] 02/28 10:41 Order name: CBC with Automated Diff [facility] 02/28 10:41 Order name: NT PRO-BNP [facility] 02/28 10:41 Order name: NT PRO-BNP [facility] 02/28 08:37 Order name: IV Saline Lock; Complete Time: 08:47 [facility] 02/28 08:37 Order name: Labs collected and sent; Complete Time: 08:47 [facility] 02/28 08:37 Order name: O2 Per Protocol; Complete Time: 08:42 [facility] 02/28 08:37 Order name: O2 Sat Monitoring; Complete Time: 08:42 [facility] 02/28 08:43 Order name: Urine Dipstick-Ancillary (obtain specimen) [facility] Administered Medications: 08:47 Drug: Xopenex (levalbuterol) (3) 1.25 mg Route: Inhalation; ll1 12:01 Follow up: Response: No adverse reaction ll1 09:26 Drug: SOLU-Medrol (methylPrednisoLONE) 125 mg Route: IVP; Site: right forearm; ll1 12:00 Follow up: Response: No adverse reaction ll1 10:30 Drug: LevaQUIN (levofloxacin) 750 mg Route: IVPB; Site: right forearm; ll1 12:01 Follow up: Response: No adverse reaction; IV Status: Completed infusion; IV Intake: ll1 100ml Disposition Summary: 02/28/22 09:51 Hospitalization Ordered Hospitalization Status: Inpatient Admission jmm Provider: Víctor Kitchen Location: Telemetry/MedSurg (Inpatient) jmm Condition: Stable jmm Problem: an acute exacerbation jmm Symptoms: have improved jmm Bed/Room Type: Standard [facility] Room Assignment: 423(02/28/22 11:29) ja1 Diagnosis - COPD/ Chronic obstructive pulmonary disease with (acute) exacerbation jmm Forms: - Medication Reconciliation Form jmm - SBAR form jmm Addendum: 03/03/2022 03:25 STAFF ATTESTATION STATEMENT: I was immediately available onsite in the emergency s d2 department for consultation in the care of this patient. I did not see or examine this patient. Germania Fields MD. Signatures: Dispatcher [employer] EDMS Kristopher Marie PA PA jmm Williams, Irene, RN RN Taras Urbina RN RN ja1 Marquise Cui RN RN 1 Germania Fields MD MD sd2 Corrections: (The following items were deleted from the chart) 02/28 11:29 09:51 slim andino
--- NOTE | 2022-02-28 09:51 | ER ---
Nurse's Notes [facility] Name: Keshia Madsen Age: 81 yrs Sex: Female : 1940 Arrival Date: 02/28/2022 Time: 08:03 Bed 8 Private MD: Víctor Kitchen C Diagnosis: COPD/ Chronic obstructive pulmonary disease with (acute) exacerbation Presentation: 02/28 08:36 Chief complaint: Patient's son or daughter states: symptoms of COPD exacerbation, she iw is having hot flashes and conversations with people who aren't there, started Monday. Coronavirus screen: Client presents with at least one sign or symptom that may indicate coronavirus-19. Ebola Screen: Patient negative for fever greater than or equal to 101.5 degrees Fahrenheit, and additional compatible Ebola Virus Disease symptoms Patient denies exposure to infectious person. Patient denies travel to an Ebola-affected area in the 21 days before illness onset. No symptoms or risks identified at this time. Initial Sepsis Screen: Does the patient meet any 2 criteria? No. Patient's initial sepsis screen is negative. Does the patient have a suspected source of infection? No. Patient's initial sepsis screen is negative. Risk Assessment: Do you want to hurt yourself or someone else? Patient reports no desire to harm self or others. Onset of symptoms was February 26, 2022. 08:36 Method Of Arrival: Wheelchair iw 08:36 Acuity: STERLING 3 iw Historical: - Allergies: 08:38 No Known Allergies; iw - PMHx: 08:38 COPD; High Cholesterol; stapholococcal pneumonia; iw - Immunization history:: Client reports receiving the 2nd dose of the Covid vaccine. - Social history:: Smoking status: Patient reports the use of cigarette tobacco products, smokes one-half pack cigarettes per day. Screenin:41 Abuse screen: Denies threats or abuse. Nutritional screening: No deficits noted. ll1 Tuberculosis screening: No symptoms or risk factors identified. Fall Risk IV access (20 points). Gait- Mental Status- Overestimates/Forgets Limitations (15 pts.). Total Adhikari Fall Scale indicates Low Risk Score (25-44 pts). Fall prevention measures have been instituted. Side Rails Up X 2 Placed close to Nursing Station Frequent Obs/Assesments occuring Family Present and informed to notify staff if they need to leave bedside As available Patient and Family Educated on Fall Prevention Program and strategies. Assessment: 08:45 General: Appears uncomfortable, ill, Behavior is cooperative, appropriate for age. ll1 Pain: Denies pain. Neuro: No deficits noted. Cardiovascular: No deficits noted. Respiratory: Reports shortness of breath cough that is labored breathing. 09:45 Reassessment: No changes from previously documented assessment. Patient and/or family ll1 updated on plan of care and expected duration. Pain level reassessed. Patient is alert, oriented x 3, equal unlabored respirations, skin warm/dry/pink. 10:45 Reassessment: No changes from previously documented assessment. Patient and/or family ll1 updated on plan of care and expected duration. Pain level reassessed. Patient is alert, oriented x 3, equal unlabored respirations, skin warm/dry/pink. 11:45 Reassessment: No changes from previously documented assessment. Patient and/or family ll1 updated on plan of care and expected duration. Pain level reassessed. Patient is alert, oriented x 3, equal unlabored respirations, skin warm/dry/pink. Vital Signs: 08:36 BP 125 / 85; Pulse 78; Resp 24 S; Temp 98.0(O); Pulse Ox 87% on 3 lpm NC; Weight 54.43 iw kg; Height 5 ft. 3 in. (160.02 cm); 11:50 BP 103 / 51; Pulse 77; Resp 22; Pulse Ox 93% on 3 lpm NC; ll1 08:36 Body Mass Index 21.26 (54.43 kg, 160.02 cm) ED Course: 08:03 Patient arrived in ED. as 08:04 Víctor Kitchen MD is Private Physician. as 08:15 [facility] jmm 08:15 Germania Fields MD is Attending Physician. jmm 08:38 Triage completed. iw 08:39 Arm band placed on. iw 08:41 Marquise Cui, BAUTISTA is Primary Nurse. ll1 08:41 Patient placed in an exam room, on a stretcher. ll1 08:42 Patient has correct armband on for positive identification. Bed in low position. Call ll1 light in reach. Side rails up X2. Client placed on continuous cardiac and pulse oximetry monitoring. NIBP monitoring applied. security monitor on. 08:50 Inserted saline lock: 22 gauge in right forearm, using aseptic technique. Blood ll1 collected. 09:50 Víctor Kitchen MD is Hospitalizing Provider. m 10:36 RAD In Process Unspecified. EDMS 12:28 No provider procedures requiring assistance completed. Patient admitted, IV remains in ll1 place. Administered Medications: 08:47 Drug: Xopenex (levalbuterol) (3) 1.25 mg Route: Inhalation; ll1 12:01 Follow up: Response: No adverse reaction ll1 09:26 Drug: SOLU-Medrol (methylPrednisoLONE) 125 mg Route: IVP; Site: right forearm; ll1 12:00 Follow up: Response: No adverse reaction ll1 10:30 Drug: LevaQUIN (levofloxacin) 750 mg Route: IVPB; Site: right forearm; ll1 12:01 Follow up: Response: No adverse reaction; IV Status: Completed infusion; IV Intake: ll1 100ml Medication: 08:42 VIS not applicable for this client. ll1 Intake: 12:01 IV: 100ml; Total: 100ml. ll1 Outcome: 09:51 Decision to Hospitalize by Provider. jmm 12:28 Admitted to Med/surg accompanied by tech, via wheelchair, room 423, with chart, Report ll1 called to Lisa Vivar RN on . 12:28 Condition: stable 12:28 Instructed on the need for admit. 12:58 Patient left the ED. iw Signatures: Dispatcher [employer] EDMS Kristopher Marie PA PA jmm Martinez, Amelia as Williams, Irene, BAUTISTA BAUM iw Marquise Cui RN RN ll1
[2022-02-28] MEDS ORDERED: ONDANSETRON 4 MG/2 ML VIAL IV PRN (09:53)
[2022-02-28] MEDS ORDERED: ACETAMINOPHEN 500 MG TAB PO PRN (09:53)
[2022-02-28] MEDS: METHYLPREDNISOLONE 40 MG INJ IV SCH ×2 (10:00→21:56)
[2022-02-28] MEDS ORDERED: Levofloxacin 750mg IV 750 MG/150 ML BAG IV ONE (10:24)
[2022-02-28 10:54] LABS: SARS-CoV-2 Antigen Rapid Res Negative (Negative)
[2022-02-28] MEDS: ALBUTEROL 2.5 MG/3 ML NEB SOL NEB SCH ×2 (14:00→20:40)
[2022-02-28 14:27] VITALS: BMI 21.2
[2022-02-28] MEDS ORDERED: INFLUENZA VACCINE (for 6+ mo) 0.5 ML DOSE IMVAC ONE (15:00)
[2022-03-01] MEDS: IPRATROPIUM BROM 0.5MG/2.5ML NEB PRN ×3 (01:20→19:45)
[2022-03-01] MEDS: ALBUTEROL 2.5 MG/3 ML NEB SOL NEB SCH ×4 (01:20→19:45)
[2022-03-01 05:48] LABS: Absolute Lymphocytes (CBC) 0.7 K/uL (0.7-4.9); Hematocrit 32.2 % (36.0-45.0); MPV 8.7 fL (7.6-11.3)
[2022-03-01 06:04] LABS: Potassium 3.5 mmol/L (3.5-5.1)
[2022-03-01] MEDS ORDERED: BUSPIRONE HCL 5 MG TABLET PO PRN (06:43)
[2022-03-01] MEDS: METHYLPREDNISOLONE 40 MG INJ IV SCH ×2 (08:59→23:17)
[2022-03-01] MEDS: ENOXAPARIN 30 MG/0.3 ML SQ SCH (08:59)
[2022-03-01] MEDS: ASPIRIN EC 81 MG TAB PO SCH (08:59)
[2022-03-01] MEDS: DONEPEZIL HCL 5 MG TAB PO SCH (08:59)
[2022-03-01] MEDS: METOPROLOL TAR 25 MG TAB PO SCH ×2 (09:00→21:00)
[2022-03-01] MEDS ORDERED: BUPROPION HCL XL 150 MG TAB PO SCH (09:00)
[2022-03-01] MEDS: ATORVASTATIN 20 MG TAB PO SCH (09:00)
[2022-03-01] MEDS: AMLODIPINE 5 MG TAB PO SCH (09:00)
--- NOTE | 2022-03-01 10:58 | HP ---
Date of Admission: 02/28/2022 Chief Complaint: Cough, congestion, shortness of breath. History Of Present Illness: Ms. Madsen is a very pleasant 81-year-old female patient admitted to the hospital after she came into emergency room with 2 days history of cough, congestion, wheezing, and shortness of breath. She denies any fever, chills, nausea, vomiting, diarrhea. After she was evalua krishna in the emergency room, she was admitted to the hospital with acute exacerbation of COPD. Allergies: NO KNOWN ALLERGIES. Medications: Albuterol inhaler 2 puffs 4 times a day as needed, albuterol and Atrovent nebulizer hannah atment 4 times a day as needed, Fosamax 70 mg once a week, amlodipine 5 mg daily in morning, aspirin 81 mg daily, atorvastatin 20 mg daily in the evening, azelastine nasal spray 1 spray each nostril 2 t imes a day as needed for allergies, bupropion 75 mg p.o. daily, buspirone 5 mg 2 times a day as neede d for anxiety, donepezil 5 mg daily, Trelegy inhaler 1 puff daily, metoprolol tartrate 25 mg takes york lf a tablet 2 times a day, montelukast 10 mg daily, Requip 0.25 mg daily at bedtime. Review of Systems: Respiratory: As mentioned above. All other systems reviewed and negative. Past Medical History: Allergic rhinitis, COPD, atypical mycobacterium infection of lung, COVID-19 in fection January 2020, hypertension, hyperlipidemia, diverticulosis, osteoporosis, hyponatremia. Past Surgical History: Tonsillectomy, appendectomy, carpal tunnel surgery on the right hand. Family History: Mother , had stroke. Father , details unknown. Brother of Alzheimer d isease, coronary artery disease, and myocardial infarction. Social History: Positive for smoking. Use of alcohol occasional. Physical Examination: Vital Signs: Temperature 97.4, pulse 80, respiratory rate 18, blood pressure 103/53, oxygen saturati on 90% on 3 L nasal cannula oxygen. Height 5 feet 3 inches, weight 120 pounds. General: Awake, alert, oriented, not in distress. HEENT: Head atraumatic, normocephalic. Conjunctivae nonerythematous. Sclerae white. Mouth, no thr ush or edema noted. Ears/Nose, no mass, lesion, discharge noted. Neck: Supple. No JVD, lymph nodes, bruit, thyromegaly noted. Lungs: Presence of some scattered wheezing noted and bilateral lung danielle. Not using any accessory muscles of respiration at rest. Heart: Normal heart sounds, no murmur or gallop. Abdomen: Soft, bowel sounds normal. No guarding, rigidity, tenderness, mass, hepatosplenomegaly, dis tention, or bruit noted. Extremities: No leg edema. No calf tenderness. Skin: No rash, ulcer, cellulitis. Lymphatics: No lymph node enlargement in neck, supraclavicular, infraclavicular region. Neuro: No focal neurological deficit. Chest: Unremarkable. External Genitalia: Deferred. Rectal: Deferred. Laboratory Data: White count 13.6, hemoglobin 11.5, platelets 218. Sodium 138, potassium 3.7, chlor sancho 100, bicarb 31, BUN 11, creatinine 0.64, glucose 156. Liver function tests unremarkable. Tropon in 21.1. Chest x-ray: No acute cardiopulmonary changes and COVID-19 test negative. Impression: 1.Acute exacerbation of chronic obstructive pulmonary disease. 2.Acute on chronic respiratory failure with hypoxia. 3.Anemia, unspecified. 4.Hypertension. 5.Hyperlipidemia. 6.Allergic rhinitis. 7.Diverticulosis. Plan: Admit patient to hospital for further evaluation and management of this problem. Patient is a ppropriate for inpatient and is expected to spend 2 midnights in the hospital. For acute exacerbatio n of COPD, we will treat her with IV steroid and IV antibiotic. Oxygen replacement therapy will be c ontinued and nebulizer treatment will be given per order. We will go ahead and start DVT prophylaxis using Lovenox. For chronic respiratory failure with hypoxia, patient is on home oxygen at home and we will continue her oxygen replacement therapy in the hospital. Her oxygen saturation was 87% on 3 L nasal cannula oxygen when she came into emergency room and it has improved with the treatment provi ded so far. Osteoporosis treatment, which is Fosamax will not be given while in the hospital. For h ypertension, we will continue her antihypertensive medication and for hyperlipidemia, we will continu e her statin therapy that she takes at home. For her anxiety problem, we will continue her anxiety m edication, which is buspirone and bupropion the way she takes at home and for restless legs syndrome, we will continue Requip. Details and plan of treatment discussed with her. I also communicated erma antony her regarding advance directive and patient is not able to make any decision so she will remain ful l code until different decision is made by her. She was encouraged to communicate with her daughter regarding advance directive. YOSVANY/JESSICA Voice ID: [id number]
--- NOTE | 2022-03-01 14:06 | EKG ---
Test Date: 2022-02-28 Test Time: 09:23:59 Matrix Worker: GREG MEASUREMENT RESULTS: Intervals: Rate: 79 HI: 152 QRSD: 82 QT: 398 QTc: 456 Partlow: P: 92 HI: 152 QRS: 86 T: 76 INTERPRETIVE STATEMENTS: Sinus rhythm with occasional premature ventricular complexes RSR' or QR pattern in V1 suggests right ventricular conduction delay Nonspecific ST and T wave abnormality Abnormal ECG Compared to ECG 12/21/2020 15:27:52 Ventricular premature complex(es) now present RSR' in V1 or V2 now present ST (T wave) deviation now present Sinus arrhythmia no longer present Myocardial infarct finding no longer present Electronically Signed On 03-01-22 14:02:27 CDT by Reggie Yeager
[2022-03-01] MEDS ORDERED: QUETIAPINE 25 MG TAB PO ONE (17:00)
[2022-03-01 18:29] LABS: Arterial Blood Carboxyhemoglob 0.9 % (0-1.5)
--- NOTE | 2022-03-01 22:49 | PN ---
Date of Progress Note: 03/01/2022 Subjective: Patient was seen this morning for followup. She was lying in bed, not in any distress. No new complaints or problems reported by her. She did not sleep much last night as she reported. There was slight confusion noted when she was talking to me this morning, but as the day progressed t steven, her confusion has gotten worse. Objective: Vital Signs: Reviewed. HEENT: Unremarkable. Lungs: Clear to auscultation except some wheezing in the lower lung danielle. Not using any accessory muscles of respiration. Heart: Sounds normal. Abdomen: Soft. Bowel sounds normal. No guarding, rigidity, tenderness, distention. Extremities: No leg edema. Laboratory Data: Reviewed. ABG done this evening, results reviewed. Impression: 1.Acute exacerbation of chronic obstructive pulmonary disease. 2.Acute on chronic respiratory failure with hypoxia. 3.Rule out dementia. Plan: We will continue current oxygen replacement therapy, steroid, antibiotics, DVT prophylaxis, an d other home medications per order. I did talk to patient's daughter who was concerned about her alt ered mental status today. As the day progressed, her confusion has gotten worse and after arterial b lood gas results reviewed, I did inform the patient's daughter that BiPAP really will not necessarily be helpful in this situation, but at the same time considering family is requesting BiPAP therapy, i t will not be harmful to her either, so I am willing to try BiPAP, but at the same time what I am con cerned about is that her altered status is primarily due to underlying dementia type of problem and h er being in the hospital, not getting enough sleep, etc. I have suggested family that this kind of a ltered mental status in my opinion is expected to continue to happen every time she comes into the [facility] regardless of reason, even if it is not due to COPD and some other diagnosis. She will likely be experiencing this kind of problem and I have suggested for family to take her to a neurologist on outpatient basis, which family will do so. Meanwhile, we will try BiPAP therapy. I will see her to favio for followup. One dose of Seroquel was ordered earlier this evening and we will see how she d oes. Patient will definitely benefit a lot if she gets a good night sleep and earlier she can go karrie e as soon as the need for hospitalization is over. It will be better for her overall mental status. All these details were discussed with the patient's daughter. We also discussed with the daughter t hat it is important for her to communicate with the patient regarding advance directive as patient re dejah full code because she has not made any such decision and daughter will bring up this discussion with the patient at appropriate time. YOSVANY/MODL Voice ID: [id number] Report ID: [id number]
[2022-03-02] MEDS: IPRATROPIUM BROM 0.5MG/2.5ML NEB PRN (01:49)
[2022-03-02] MEDS: ALBUTEROL 2.5 MG/3 ML NEB SOL NEB SCH ×3 (01:49→14:30)
[2022-03-02] MEDS: METOPROLOL TAR 25 MG TAB PO SCH (09:14)
[2022-03-02] MEDS: ATORVASTATIN 20 MG TAB PO SCH (09:14)
[2022-03-02] MEDS: METHYLPREDNISOLONE 40 MG INJ IV SCH (09:14)
[2022-03-02] MEDS: ENOXAPARIN 30 MG/0.3 ML SQ SCH (09:14)
[2022-03-02] MEDS: DONEPEZIL HCL 5 MG TAB PO SCH (09:14)
[2022-03-02] MEDS: AMLODIPINE 5 MG TAB PO SCH (09:15)
[2022-03-02] MEDS: ASPIRIN EC 81 MG TAB PO SCH (09:15)
[2022-03-02 12:32] VITALS: TEMP 97.4
[2022-03-02 16:27] VITALS: BP 120/57; O2SAT 93
--- NOTE | 2022-03-03 05:13 | DS ---
Date of Discharge: 03/02/2022 Disposition: Discharged to go home. Physical Examination: HEENT: Unremarkable. Lungs: Clear to auscultation. Not in any respiratory distress. Heart: Sounds normal. Abdomen: Soft. Bowel sounds normal. No guarding, rigidity, tenderness, or distention. Extremities: No leg edema. Discharge Medications And Instructions: 1.Continue all prior home medications that you were taking prior to this admission. 2.Take prednisone 10 mg tablet. The patient to take 3 tablets daily for 3 days, then 2 tablets kapil y for 3 days, then 1 tablet daily for 3 days, then stop. 3.Levaquin 500 mg, take 1 tablet daily for 1 week. 4.Follow up at my office next week. Laboratory Data: Upon admission; white count 13.6, hemoglobin 11.5, platelets 218. Yesterday; white count 11.2, hemoglobin 10.8, platelets 213. ABG done yesterday; pH 7.43, pCO2 of 43.7, pO2 of 63.4, oxygen saturation 91% on 32% FiO2. Upon admission, chemistry shows; sodium 138, potassium 3.7, chlo ride 100, bicarb 31, BUN 11, creatinine 0.64, glucose 156. Yesterday, chemistry; sodium 138, potassi um 3.5, chloride 101, bicarb 31, BUN 14, creatinine 0.85, glucose 202. Hospital Course: This is an 81-year-old pleasant female patient, admitted to the hospital with cough , congestion, shortness of breath. Please see dictated H and P for more information. The patient ca me into emergency room with this problem. After she was evaluated, she was admitted to the hospital with acute exacerbation of COPD. The patient has chronic respiratory failure with hypoxia and she is on home oxygen that she uses continuously. Her oxygen replacement therapy was continued during this hospitalization. After she was evaluated, she was admitted to the hospital. IV steroid was given a nd overall her condition has improved. The problem that we saw during this hospitalization was, lot of confusion and yesterday patient's daughter was concerned about this to the extent that she request ed BiPAP to be given as in the past with COPD exacerbation. She reported that when she was treated w ith BiPAP, her condition improved along with confusion improved also, and yesterday after blood gas w as done, I did talk to the patient's daughter. Informed her that, at this point on basis of her bloo d gas, there is no real need for BiPAP therapy, but if she wants, we can go ahead and order one for h er, but at the same time without BiPAP, her condition will improve. As far as COPD exacerbation is c oncerned and confusion, I strongly suspect that the patient has some underlying dementia problem that she is going to show evidence of confusion every time she comes into the hospital, regardless of wha t the diagnosis is. So, after discussing with the daughter, we did order BiPAP and this morning when I came to see her, she was sleeping. Daughter was present with her at bedside and patient was on na nestor cannula oxygen and daughter informed me that the patient did not keep the BiPAP on last night, so she has been on nasal cannula oxygen. As I suggested to patient's daughter that I expect her condit ion to improve after she has a good night sleep and this morning after she woke up, her condition was better because of the rest that she got last night, and daughter was comfortable taking her home thi s afternoon, so she was discharged to go back home. I did talk to patient's daughter yesterday to in form her that she should follow up with the neurologist on an outpatient basis for dementia evaluatio n and she will do so. If she needs assistance with referral, we will help her through the office. Final Diagnoses: 1.Acute exacerbation of chronic obstructive pulmonary disease. 2.Acute on chronic respiratory failure with hypoxia. 3.Anemia, unspecified. 4.Hypertension. 5.Hyperlipidemia. 6.Allergic rhinitis. 7.Diverticulosis. YOSVANY/MODL Voice ID: [id number] Report ID: [id number]
== END 2022-03-02 16:40 | disposition home or self-care (01) | DRG 190 ==
LOC: ER 08:02 → ERHOLD 09:52 → 4TH 12:46
PROVIDERS: ADMIT Internal Medicine; ATTEND Internal Medicine
PROC: 5A09357 Assistance with Respiratory Ventilation, Less than 24 Consecutive Hours, Continuous Positive Airway Pressure (ICD-10-PCS; principal; 2022-03-01)
DX: J44.1 Chronic obstructive pulmonary disease with (acute) exacerbation (principal); J96.21 Acute and chronic respiratory failure with hypoxia; I10 Essential (primary) hypertension; E78.5 Hyperlipidemia, unspecified; D64.9 Anemia, unspecified; F41.9 Anxiety disorder, unspecified; J30.9 Allergic rhinitis, unspecified; G25.81 Restless legs syndrome; M81.0 Age-related osteoporosis without current pathological fracture; K57.90 Diverticulosis of intestine, part unspecified, without perforation or abscess without bleeding; F03.90 Unspecified dementia, unspecified severity, without behavioral disturbance, psychotic disturbance, mood disturbance, and anxiety; F17.210 Nicotine dependence, cigarettes, uncomplicated; Z90.49 Acquired absence of other specified parts of digestive tract; Z86.16 Personal history of COVID-19; Z99.81 Dependence on supplemental oxygen; Z79.899 Other long term (current) drug therapy; Z20.822 Contact with and (suspected) exposure to COVID-19
CPT/HCPCS: 36415; 71045; 80048; 80076; 82805; 83605; 83880; 84484; 85025; 85610; 87040; 87811; 93005; 94660; 94760; 96365; 96366; 96375; 97116; 97161; 99285; J1650; J2920; J2930; J7614